=== PATIENT | female | born 1950 | race Caucasian/White ===

== ENCOUNTER 2019-02-15 12:06 | Inpatient (IN) ==
--- NOTE | 2019-02-15 12:49 | Diag Imaging Result Doc PS360 ---
EXAM: CHEST-1 VIEW 02/15/2019 HISTORY: syncope TECHNIQUE: AP portable at 1241 COMMENT: There is no evidence of acute cardiac or pulmonary disease and compared to 10/16/2018 there has been no significant change. IMPRESSION: No acute disease. Electronically signed by Kieran Greenwood 02/15/2019 12:46 PM
[2019-02-15 12:50] LABS: EOS# 0.01 X1000 (0.0-0.7); EOS% 0.3 % (0.0-10.0); HEMATOCRIT 33.6 % (37.0-47.0); HEMOGLOBIN 10.6 g/dL (12.0-16.0); LYMPH# 0.72 X1000 (1.2-3.4); MCHC 31.5 g/dL (33-37); MCV 76.2 FL (81-99); MONO# 0.23 X1000 (0.11-0.59); MONO% 7.7 % (1.7-9.3); MPV 10.6 FL (7.4-10.4); NEUT# 2.04 X1000 (1.4-6.5); PLT 226 X1000 (130-400); RBC 4.41 XMIL (4.2-5.4); RDW 15.6 % (11.5-14.5)
[2019-02-15 13:07] LABS: ALB/GLOB RATIO 1.1; ALBUMIN 3.7 g/dL (3.5-5.0); POTASSIUM 3.7 mmol/L (3.5-5.1); TOTAL BILIRUBIN 1.98 mg/dL (0.20-1.00); TOTAL PROTEIN 7.1 g/dL (6.3-8.3)
--- NOTE | 2019-02-15 13:53 | EKG Report ---
Test Performed on : 02/15/2019 12:15:34 PM Test Reason : syncope Blood Pressure : / mmHG Vent. Rate : 075 BPM Atrial Rate : 075 BPM P-R Int : 224 ms QRS Dur : 092 ms QT Int : 408 ms P-R-T Axes : 082 -20 019 degrees QTc Int : 455 ms Sinus rhythm. with 1st degree AV block. Otherwise normal ECG When compared with ECG of 16-OCT-2018 14:32, No significant change was found Unconfirmed Result
--- NOTE | 2019-02-15 16:10 | Diag Imaging Result Doc PS360 ---
EXAM: CT ABD/PELVIS W/IV CONT ONLY 02/15/2019 HISTORY: SYNCOPE, ELEV lftS TECHNIQUE: This exam was performed using automated exposure control, adjustment of mA or kV according to patient size, and/or use of iterative reconstruction technique. COMMENT: The current examination is compared with the previous study of 04/16/2018. There are patchy ill-defined opacities in the right lower lobe which may indicate a mild bronchopneumonia. This was not present at the time the previous study. There are numerous small gallstones in the gallbladder. There is no evidence of para cholecystic fluid or inflammation. The aorta is not distended. The mesenteric and renal arteries are patent. The spleen and adrenal glands are unchanged in appearance. The pancreas is also stable in appearance. There is dilatation of the collecting system of the left kidney as there was on the previous study. There is an exophytic nodule arising from the lower lateral right kidney which is actually somewhat smaller than on the previous study. There is a fairly large amount of stool present in the colon. There is no evidence of biliary dilatation. There is a hiatal hernia containing fluid. The small bowel is not distended. The appendix is normal in appearance. Pelvis: There is a fat-containing ventral hernia above the level of the umbilicus. There is diverticulosis in the sigmoid colon without evidence of diverticulitis and a large amount of stool in the rectosigmoid colon. The urinary bladder is not distended. There is rotoscoliosis of the lower lumbar spine with convexity to the right. There are degenerative disc changes. IMPRESSION: Constipation. Cholelithiasis. Right lower lobe pneumonia. Otherwise stable since 04/16/2018. Electronically signed by Kieran Greenwood 02/15/2019 4:07 PM
[2019-02-15] MEDS ORDERED: LEVAQUIN 750 MG/D5W 750 MG/150 ML IVPB IV ONE (17:22)
--- NOTE | 2019-02-15 19:09 | PROVIDER DOCUMENTATION ---
This chart was entered by Davida Li Scribe, acting as scribe for Wyatt Sullivan MD. HPI-Syncope/Dizziness - General Chief Complaint: Nausea/Vomiting Stated Complaint: AMS Time Seen by Provider: 02/15/19 12:18 Source: patient, EMS (first response) Allergies/Adverse Reactions: Patient Allergies Allergy/AdvReac Type Severity Reaction Status Date / Time Penicillins Allergy RASH Verified 02/15/19 12:24 Home Medications: Home Medication List Medication Instructions Recorded Confirmed Last Taken Type Folic Acid 1 mg PO DAILY #0 tablet 09/03/14 10/16/18 07/13/18 Rx Lisinopril 10 mg PO DAILY 01/23/16 10/16/18 07/13/18 History Olanzapine 5 mg PO HS 01/23/16 10/16/18 1 Day Ago History ~07/12/18 ROSUVAstatin [Crestor] 20 mg PO QPM 01/23/16 10/16/18 1 Day Ago History ~07/12/18 Aspirin [Aspir-Low] 81 mg DAILY 06/11/17 10/16/18 07/13/18 History Bupropion HCl [Bupropion Xl] 150 mg PO DAILY 07/14/18 10/16/18 Unknown History Lactobacillus Rhamnosus GG 1 cap PO BID 10/16/18 10/16/18 Unknown History [Culturelle] Linaclotide [Linzess] 145 mg PO QAM 10/16/18 10/16/18 Unknown History Tramadol [Ultram] 50 mg PO DAILY PRN 10/16/18 10/16/18 Unknown History - History of Present Illness-Syncope/Dizzy Nature of Presenting Problem: 68 yowf which is a MR pt presents to the ed via ems (first response) with c/o "a few months of passing out", n/v (pt was covered in vomit on exam), SOLIZ, cough and chronic sob. pt had FSBG 144 and has mild confusion which may be baseline. pt had initial 911 call from family for unresponsive in shower. when ems aos pt had GCS of 4 by the time the arrived in ed GCS was 15. pt sts today has been worse with n/v but abdominal pain onset was 2 days prior. Prior Episodes: reports: recent history Onset/Duration: reports: just prior to arrival Timing: reports: improving Position/Activity at time of episode: reports: sitting Symptoms prior to episode: reports: headache, nausea/vomiting, abdominal pain Context: reports: lost consciousness Loss of Consciousness: prolonged (minutes) Location of injury. (If syncope resulted in an injury.): reports: none Current Symptoms: reports: short of breath, abdominal pain, nausea, vomiting, headache, pale, headache. denies: sweaty, chest pain Recently Seen Here or By Another Healthcare Provider: No - Dizziness Severity in ED: reports: mild Dizziness Related Current/Associated Symptoms: reports: nausea/vomiting, dizzy, pale, headache Any recent trauma/injury?: reports: none Patient usually:: reports: walks without assistance Review of Systems - Adult - REVIEW OF SYSTEMS - ADULT ROS:: limited per condition (pt is a MR pt) Constitutional: denies: chills, fever Eyes: reports: no symptoms reported Ears, Nose, Mouth & Throat: reports: no symptoms reported Cardiovascular: reports: see HPI, syncope. denies: chest pain, palpitations Respiratory: reports: cough, shortness of breath. denies: wheezing Gastrointestinal: reports: see HPI, abdominal pain, nausea, vomiting (multiple times). denies: diarrhea Genitourinary: reports: no symptoms reported Musculoskeletal: denies: back pain, neck pain Integumentary: reports: see HPI, hair loss Neurological: reports: see HPI, headache/migraines, syncope. denies: ataxia, loss of balance, seizure, slurred speech, tremors Psychiatric: reports: no symptoms reported Endocrine: reports: no symptoms reported Hematologic/Lymphatic: reports: no symptoms reported Allergic/Immunologic: reports: no symptoms reported All Other Systems: Reviewed and Negative Past History - Adult - PAST MEDICAL HISTORY-ADULT Review of Records: reports: Nursing Assessment Review, Medications Reviewed Major Childhood Illnesses: reports: denies history Cardiovascular: reports: HTN, hyperlipidemia Respiratory: reports: asthma, pneumonia Gastrointestinal: reports: GERD Obstetrical/Gynecological: reports: denies history Genitourinary: reports: cancer (kidney), kidney disease Musculoskeletal: reports: denies history Hand Dominance: Right Handed Neurological: reports: CVA, Seizures/Epilepsy, other ( metabolic encephalopathy) Psychiatric: reports: depression, other (MR) Endocrine/Immune: reports: thyroid disorder Other Conditions: reports: other cancer (skin) - PRIOR SURGERIES/PROCEDURES Surgical/Procedure History: reports: hysterectomy - PRIOR HOSPITALIZATIONS Prior Hospitalizations: reports: for other non-related - IMMUNIZATION STATUS Childhood Immunizations: See Nurse Assessment Flu Vaccine: See Nurse Assessment - FAMILY HISTORY Family History: reviewed, not pertinent - SOCIAL HISTORY Smoking: denies Substance Use: denies Living Situation: family Physical Exam-General - PHYSICAL EXAM-ADULT Initial Vital Signs Reviewed: Yes - CONSTITUTIONAL General Appearance: alert, mild distress, obese. negative: appears well - EYES Eyes: PERRL/EOMI, pale conjunctivae - HEAD, EARS, NOSE, MOUTH & THROAT HENMT: negative: moist mucous membranes (dry) - NECK Neck: full range of motion, supple, normal inspection - RESPIRATORY Respiratory: chest non-tender, lungs clear, normal breath sounds - CARDIOVASCULAR Cardiovascular: normal peripheral pulses, regular rate, rhythm - GASTROINTESTINAL (ABDOMEN) Abdominal Exam: normal bowel sounds, soft, tenderness (generalized). negative: guarding, rigid, rebound - LYMPHATIC Lymphatic: no adenopathy - MUSCULOSKELETAL Back Exam: normal inspection, no CVA tenderness, no vertebral tenderness Extremity: normal range of motion, non-tender, normal inspection, normal capillary refill, pelvis stable - SKIN Integumentary: warm/dry, pallor - PSYCHIATRIC Psych/Mental Status: other (pt has mild confusion but can follow most commands. pt is a MR pt) Progress - PLAN OF CARE/RESULTS Progress/Plan/Lab Results: Vital Signs - 8 hr 02/15/19 13:41 Pulse Rate [Sitting] 86 Pulse Rate [Standing] 92 H Pulse Rate [Supine] 81 Blood Pressure [Sitting] 120/86 Blood Pressure [Standing] 117/78 Blood Pressure [Supine] 124/74 Laboratory Results - last 24 hr 02/15/19 02/15/19 02/15/19 12:16 12:20 12:20 WBC 3.00 L RBC 4.41 Hgb 10.6 L Hct 33.6 L MCV 76.2 L MCH 24.0 L MCHC 31.5 L RDW Std Deviation 15.6 H Plt Count 226 MPV 10.6 H Immature Gran % (Auto) 0.0 Neut % (Auto) 68.0 Lymph % (Auto) 24.0 [place] % (Auto) 7.7 Eos % (Auto) 0.3 Baso % (Auto) 0.0 Immature Gran # (Auto) 0.00 Neut # (Auto) 2.04 Lymph # (Auto) 0.72 L [place] # (Auto) 0.23 Eos # (Auto) 0.01 Baso # (Auto) 0.00 Sodium 140 Potassium 3.7 Chloride 103 Carbon Dioxide 20 L Anion Gap 17 BUN 17 Creatinine 1.0 H Estimated GFR/1.73 m2 55 BUN/Creatinine Ratio 17 Glucose 146 H POC Glucose 144 H D Calculated Osmolality 284 Calcium 9.0 Total Bilirubin 1.98 H AST 863 H ALT 572 H Alkaline Phosphatase 193 H Total Protein 7.1 Albumin 3.7 Globulin 3.4 Albumin/Globulin Ratio 1.1 Orders Category Date Time Status CHEST-1 VIEW [RAD] Stat Exams 02/15/19 12:[address] ABD/PELVIS W/IV CONT ONLY [CT] Stat Exams 02/15/19 15:24 Completed CBC WITH DIFF [HEME] Stat Lab 02/15/19 12:20 Completed COMPREHENSIVE METABOLIC PANEL [CHEM] Stat Lab 02/15/19 12:20 Completed Levofloxacin 750 mg/D5w [Levaquin 750 mg/D5w] Med 02/15/19 17:22 Discontinued 750 mg in 150 ml IV NOW EKG [EKG] Stat Ther 02/15/19 12:33 Draft old charts were reviewed, She has been seen in the ED here 12 other times for syncope, on one recent admission, had cardiac cath. She has refused rehab placement in past Result Diagrams: 02/15/19 12:20 02/15/19 12:20 - REASSESSMENT Reassessment #1 Time Reassessed: 17:17 Status: improving - EKG 1 Time of EKG reading by physician:: 12:15 EKG Read and Signed by:: Wyatt Sullivan EKG Interpretation (*Must complete 3 of following elements*): Normal Rate: 75 Rhythm: sinus rhythm with 1st degree av block Hensley: normal QRS: normal MI Interval: normal ST Wave: normal - XRAY 1 XRAY: Bilateral XRAY Study: Chest Impression: See EMR Report (EXAM: CHEST-1 VIEW 02/15/2019 HISTORY: syncope TECHNIQUE: AP portable at 1241 COMMENT: There is no evidence of acute cardiac or pulmonary disease and compared to 10/16/2018 there has been no significant change. IMPRESSION: No acute disease. Electronically signed by Kieran Greenwood 02/15/2019 12:46 PM 02/15/19 1246 Interpreting Physician: Kieran Greenwood MD Dictated Date/Time: 02/15/19 1246 cc: Wyatt Sullivan MD; Loli Barrios) - CT/MRI 1 CT Study: Abdomen, Pelvis Impression: See EMR Report (EXAM: CT ABD/PELVIS W/IV CONT ONLY 02/15/2019 HISTORY: SYNCOPE, ELEV lftS TECHNIQUE: This exam was performed using automated exposure control, adjustment of mA or kV according to patient size, and/or use of iterative reconstruction technique. COMMENT: The current examination is compared with the previous study of 04/16/2018. There are patchy ill-defined opacities in the right lower lobe which may indicate a mild bronchopneumonia. This was not present at the time the previous study. There are numerous small gallstones in the gallbladder. There is no evidence of para cholecystic fluid or inflammation. The aorta is not distended. The mesenteric and renal arteries are patent. The spleen and adrenal glands are unchanged in appearance. The pancreas is also stable in appearance. There is dilatation of the collecting system of the left kidney as there was on the previous study. There is an exophytic nodule arising from the lower lateral right kidney which is actually somewhat smaller than on the previous study. There is a fairly large amount of stool present in the colon. There is no evidence of biliary dilatation. There is a hiatal hernia containing fluid. The small bowel is not distended. The appendix is normal in appearance. Pelvis: There is a fat-containing ventral hernia above the level of the umbilicus. There is diverticulosis in the sigmoid colon without evidence of diverticulitis and a large amount of stool in the rectosigmoid colon. The urinary bladder is not distended. There is rotoscoliosis of the lower lumbar spine with convexity to the right. There are degenerative disc changes. IMPRESSION: Constipation. Cholelithiasis. Right lower lobe pneumonia. Otherwise stable since 04/16/2018. Electronically signed by Kieran Greenwood 02/15/2019 4:07 PM 02/15/19 1607 Interpreting Physician: Kieran Greenwood MD Dictated Date/Time: 02/15/19 1602 cc: Wyatt Sullivan MD; Loli Barrios) - CONSULTS/PCP/HOSPITALIST Notification #1 *Consult/PCP/Hospitalist*: Brendan Time Discussed: 19:08 Consult Disposition: Admit Departure - Departure Date of Disposition Decision: 02/15/19 Time of Disposition Decision: 17:23 DIAGNOSIS: Syncope and collapse Right lower lobe pneumonia Qualifiers: Pneumonia type: due to unspecified organism Qualified Code(s): J18.1 - Lobar pneumonia, unspecified organism Altered mental status Qualifiers: Altered mental status type: disorientation Qualified Code(s): R41.0 - Disorientation, unspecified Constipation Qualifiers: Constipation type: unspecified constipation type Qualified Code(s): K59.00 - Constipation, unspecified Disposition: ADMITTED INPATIENT 09 Certified Medical Emergency: Emergent Condition: Good Referrals and Follow-Ups: Loli Barrios CRNP [Primary Care Provider] - - Critical Care Note This patient required my direct & personal management of CC.: No Attestation - Physician/ LADAN Attestation Patient care was provided by Advanced Practice Provider:: No The physician spent face to face time with patient:: Yes Advanced Practice Provider documentation review:: Supervising physician onsite and consulted in the evaluation and care of this patient. The physician did have a face to face encounter with the patient. This chart was documented by the indicated scribe, (Davida Li Scribe) and accurately reflects the services I performed and decisions made by me, Wyatt Sullivan MD, as attested by the provider's signature.
[2019-02-15 20:24] LABS: PTT 27.7 Seconds (22.3-41.8)
[2019-02-15 20:57] LABS: D-DIMER 3.32 ug/mLFEU (0.0-0.52)
[2019-02-15 21:01] LABS: MAGNESIUM 1.8 mg/dL (1.5-2.7)
[2019-02-15 21:09] LABS: URINE SOURCE CATH
[2019-02-15 21:13] LABS: INR 1.13; PROTIME 15.5 Seconds (11.0-16.0)
[2019-02-15 21:21] LABS: BILIRUBIN URINE SMALL (NEGATIVE); BLOOD URINE SMALL (NEGATIVE); COLOR YELLOW; GLUCOSE URINE NEGATIVE (NEGATIVE); KETONE URINE NEGATIVE (NEGATIVE); LEUKOCYTES URINE NEGATIVE (NEGATIVE); NITRITE URINE NEGATIVE (NEGATIVE); PROTEIN URINE 30 mg/dL (NEGATIVE); SP GRAVITY URINE > 1.050; TURBIDITY URINE CLEAR (CLEAR); UROBILINOGEN URINE 4 mg/dL (NORMAL)
[2019-02-15 21:34] LABS: UR EPITHELIAL CELLS >10 /HPF (<10); URINE BACTERIA 4+ /HPF; URINE RBC <10 /HPF (<10); URINE WBC <10 /HPF (<10)
--- NOTE | 2019-02-15 21:52 | Diag Imaging Result Doc PS360 ---
EXAM: CT HEAD W/O CONTRAST - 02/15/2019 HISTORY: Syncope,Fall from standing position TECHNIQUE: CT head without contrast COMPARISON: 09/19/2018 FINDINGS: There are some atrophic changes and chronic microvascular ischemic changes similar to prior. There is no indication of recent infarct, although acute infarcts may not be immediately visible. There are some atherosclerotic calcifications noted at the base the brain. There is no evidence of intracranial hemorrhage, mass effect, midline shift, or hydrocephalus. There is no evidence of skull fracture. IMPRESSION: No visible acute intracranial abnormality. No hemorrhage or mass effect. This exam was performed using automated exposure control, adjustment of mA or kV according to patient size, and/or use of iterative reconstruction technique. Electronically signed by Alex Rosa 02/15/2019 9:49 PM
[2019-02-15 21:55] LABS: URINE CASTS NONE SEEN; URINE CRYSTALS NONE SEEN; URINE SMALL ROUND CELLS NONE SEEN; URINE YEAST NONE SEEN
[2019-02-15] MEDS ORDERED: CALMOSEPTINE OINTMENT TOP PRN (22:32)
[2019-02-15] MEDS ORDERED: ZOFRAN IV PRN (22:33)
[2019-02-15 23:47] LABS: AMYLASE 78 U/L (20-200); LIPASE 37 U/L (13-60)
[2019-02-16] MEDS: NS 1,000 ML IV SCH ×2 (01:30→13:48)
[2019-02-16] MEDS ORDERED: DUONEB (A & A) INH PRN (03:54)
[2019-02-16 04:22] LABS: UR AMPHETAMINES QUAL NONE DETECTED (NONE DETECT); UR BARBITUATES QUAL NONE DETECTED (NONE DETECT); UR BENZODIAZEPIN QUAL NONE DETECTED (NONE DETECT); UR CANNABINOIDS QUAL NONE DETECTED (NONE DETECT); UR COCAINE QUAL NONE DETECTED (NONE DETECT); UR METHADONE QUAL NONE DETECTED (NONE DETECT); UR OPIATES QUAL NONE DETECTED (NONE DETECT); UR OXYCODONE QUAL NONE DETECTED (NONE DETECT); UR PCP QUAL NONE DETECTED (NONE DETECT)
[2019-02-16 05:56] LABS: EOS# 0.01 X1000 (0.0-0.7); EOS% 0.2 % (0.0-10.0); HEMOGLOBIN 9.4 g/dL (12.0-16.0); LYMPH# 0.52 X1000 (1.2-3.4); LYMPH% 7.8 % (20.5-51.1); MCH 24.2 PG (27-31); MCHC 31.3 g/dL (33-37); MCV 77.3 FL (81-99); MONO% 7.5 % (1.7-9.3); MPV 10.2 FL (7.4-10.4); NEUT# 5.62 X1000 (1.4-6.5); NEUT% 84.5 % (42.2-75.2); PLT 172 X1000 (130-400); RBC 3.88 XMIL (4.2-5.4); RDW 15.8 % (11.5-14.5); WBC 6.65 X1000 (4.8-10.8)
[2019-02-16] MEDS: LOVENOX SUBQ SCH (05:59)
[2019-02-16 06:19] LABS: ALB/GLOB RATIO 1.1; ALBUMIN 3.4 g/dL (3.5-5.0); CALCIUM 9.1 mg/dL (8.8-10.2); TOTAL PROTEIN 6.5 g/dL (6.3-8.3)
--- NOTE | 2019-02-16 07:58 | HISTORY AND PHYSICAL ---
PRIMARY CARE PROVIDER: LUIS Canchola. CHIEF COMPLAINT: Syncope. HISTORY OF PRESENT ILLNESS: Ms. Medrano is a 68-year-old female, who was brought in to the ER at 12:06 p.m. on 02/15/2019 after having a syncopal episode. According to the EMS report, upon arrival they found the patient sitting down and noted her to be completely unresponsive with a reported GCS of 3. She was breathing and did have a pulse. It did note that the patient had vomited and was pale in color. When they moved the patient to their stretcher, the patient did become more awake and did have a GCS of 14 though did still have some confusion. She was brought to the ER for further evaluation. Upon arrival to the ER, the patient's initial vital signs were heart rate 86, blood pressure 120/86. Oxygen saturation of 94. EKG did show sinus rhythm with a first-degree AV block at a rate of 75. The patient reported to the ER staff that she has been having some syncopal episodes for the past few months. She did complain of headache, chronic cough and shortness of breath that has been ongoing for quite a few months. The patient does complain of abdominal pain that is generalized in nature with nausea and vomiting. She states that it has been ongoing for approximately 2 days. She denies any diarrhea. She states her last bowel movement was yesterday and was of normal color. She denies any hematemesis, hematochezia or melena. She denies any dysuria or urinary frequency. The patient states that she has been having dizziness, as well as syncopal episodes at home. She states this usually occurs when she goes from a sitting to a standing position and starts to walk. She does report that she has a headache right now that hurts across the top of her head. She reports she has blurry vision though states this is not of new onset and she is supposed to wear glasses though they are broken and she has not been able to get a new prescription for them. She denies any chest pain. The patient does report a generalized weakness. She also reports that she has had increasing difficulty with ambulation. She normally is able to ambulate with a walker though states this has been more difficult recently due to worsening weakness. She does report she has some decreased sensation in her hands and feet, though states this is not of new onset and has been going on for quite awhile. The patient denied being sick recently or taking any antibiotics for any infections though she states that she has not felt good recently and that she has been fatigued. The patient currently does live at home. Her sister does live with her and helps care for her though her sister does have chronic medical problems of her own. She denies any recent changes in any of her medications or any prescriptions for any new medicines. Upon evaluation in the ER, the patient was found to be slightly anemic though this does appear to be at her baseline. Chemistry did reveal that she has transaminitis though electrolytes were within normal limits. CK and troponin were negative. D-dimer was elevated at 3.32. The patient's CT of the abdomen and pelvis with IV contrast did show constipation, cholelithiasis and a right lower lobe pneumonia. Her chest x-ray showed no acute abnormalities. Unfortunately a D- dimer was performed after her CT abdomen and pelvis with contrast was performed. Given this we do plan to perform a CT angiogram of pulmonary arteries though we will have to wait a period of time given that she has already received recent IV contrast though her CT of the head was negative for any acute intracranial abnormalities. Patient at this time will be admitted for further treatment and evaluation of her syncope, weakness and pneumonia. REVIEW OF SYSTEM: A 14 review of systems was conducted with the patient and all were negative except for pertinent positives mentioned in above HPI. PAST MEDICAL HISTORY: 1. Dementia. I am unsure of what the patient's baseline mental status is though at this time she was alert and oriented to person, place, time and situation. 2. Hypertension. 3. Dyslipidemia. 4. Anemia. 5. Questionable history of seizure disorder. 6. Questionable history of CVA. 7. History of syncopal episodes. 8. Right renal cell carcinoma status post partial right nephrectomy. 9. 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 10. Diverticulosis. 11. Cholelithiasis. 12. Constipation. PAST SURGICAL HISTORY: 1. Hysterectomy. 2. Partial right nephrectomy. 3. Skin resection secondary to a squamous cell carcinoma of the scalp. SOCIAL HISTORY: The patient denies any past or present tobacco, alcohol or illicit drug use. She used to be a resident at [facility], though at this time she lives at home and does live with her sister who helps care for her though who reportedly has chronic medical problems herself. FAMILY HISTORY: Positive for her mother having history of diabetes mellitus. Her father had a history of heart disease and stroke. She did have a sister who had a brain cancer. She also has another sister who has unknown lung problems. ALLERGIES: The patient has allergies to penicillin. HOME MEDICATIONS: 1. Aspirin 81 p.o. daily. 2. Bupropion XL 150 p.o. daily. 3. Famotidine 40 mg p.o. daily. 4. Folic acid 1 mg p.o. daily. 5. Gabapentin 300 mg p.o. at bedtime. 6. Linzess 140 mg p.o. q.a.m. 7. Lisinopril 10 mg p.o. daily. 8. Olanzapine 5 mg p.o. b.i.d. 9. Omeprazole 40 mg p.o. daily. 10. Crestor 20 mg p.o. at bedtime. DIAGNOSTIC STUDIES: White blood cell count is 30,000, hemoglobin 10.6, hematocrit 33.6, platelet count is 226,000. PT 15.5. INR 1.13. PTT is 27.7. D-dimer is [*]Sodium 140, potassium 3.7, chloride 103, serum [*]BUN 17, creatinine 1. GFR 55. Glucose 146. Calcium 9. Total bilirubin 1.98, AST 863, ALT 572, alkaline phosphatase is 193. Ammonia level is 38. CK 48. Troponin 0.01. Amylase 78. Lipase 37. Plasma lactate is 0.9. Acetaminophen level was less than 1.2. Urinalysis was obtained via catheter and was positive for protein, blood, and 4+ bacteria though was negative for glucose, ketone, nitrates, leukocytes or white blood cells. EKG showed a sinus rhythm with a first-degree AV block at a rate of 75 with a QTc of 455. Chest x-ray showed no acute disease per Radiology. CT abdomen and pelvis with IV contrast only showed constipation, cholelithiasis, and a right lower lobe pneumonia. Other findings include a hiatal hernia containing fluid. There was also a fat containing ventral hernia above the level of the umbilicus. There was diverticulosis in the sigmoid colon without evidence of diverticulitis and a large amount of stool in the rectosigmoid colon. Please see full CT report for detailed findings. CT of the head showed no visible acute intracranial abnormality. No hemorrhage or mass effect. This is per Radiology. Pending diagnostic studies at this time include CT angiogram of pulmonary arteries, echocardiogram, abdominal ultrasound and venous Doppler of bilateral lower extremities. PHYSICAL EXAMINATION: VITAL SIGNS: Heart rate 109, respirations 18, blood pressure 119/87 with a MAP of 93. Oxygen saturation was 95% on nasal cannula at 3 L. GENERAL: Ms. Medrano is a 68-year-old female who is resting in the ER stretcher. She is in no acute distress. She was awake, alert and able to answer questions appropriately. She was alert and oriented to person, place, time and situation. HEENT: Head is atraumatic, normocephalic. Pupils are equal, round and reactive to light, were 3 mm bilaterally and brisk. EOMs were intact. Subconjunctivae were pink. Oral mucosa was slightly dry. Oropharynx was clear. The patient did have a central caries noted as well as some missing teeth as well. NECK: Supple. Trachea midline. No overt JVP noted. No carotid bruits noted upon auscultation bilaterally. CARDIOVASCULAR: Patient has S1, S2 present. No murmurs, gallops or rubs appreciated with a regular rate and rhythm. PULMONARY: Patient has symmetrical chest expansion bilaterally. Lung sounds are clear to auscultation bilaterally full cristobal. ABDOMEN: Soft. Does not appear to be distended though the patient did report tenderness upon palpation in the left lower quadrant. Bowel sounds were present in all 4 quadrants and were normoactive. EXTREMITIES: No cyanosis, clubbing, or edema noted. Pulse, motor and sensory were intact in all extremities though the patient did report some decreased sensation in the hands and bilateral feet. As mentioned above in the HPI, this is not of new onset and has not worsened according to the patient. EXTREMITIES: She is able to move all extremities but does have some generalized weakness noted. Patient did report tenderness upon palpation of bilateral lower extremities and when palpating along the deep venous system though there is no erythema or warmth . No erythema or warmth noted. INTEGUMENTARY: The patient's skin is pink, warm and dry. NEUROLOGICAL: Patient is alert and oriented to person, place, time, and situation. She does have some generalized weakness noted though hand grasps and muscle strength is equal bilaterally. She did report some decreased sensation in her hands and feet though states this is not of new onset and has not worsened. She has no arm drift noted. EOMs were intact. No facial droop noted either. ASSESSMENT AND PLAN: 1. Syncope. Looking back at the patient's previous admission, it does look as though she has had a history of this in the past. She was extensively worked up for this in September 2018. She did receive a cardiac workup which included a cardiac catheterization, echocardiogram. It was noted by Cardiology the patient did have some coronary atherosclerosis without obstructive disease. She did have a multinodular goiter and was recommended to have a CT arteriogram of the extracranial vessels to rule out any compression of the carotid vessels which she did have performed and was noted to have thyroid nodules though did not note any compression or obstruction of carotid vessels. She has had myocardial perfusion scan, echocardiogram as well as a carotid ultrasound performed in April of 2018. There was some dilation of the ascending thoracic aorta noted at 4.4 cm though her carotid ultrasound was negative and her myocardial perfusion scan was noted to be within normal limits. Her CT of head we have performed tonight was negative for any acute intracranial abnormality. Though the patient's D-dimer was elevated, given her syncope and reported shortness of breath we have ordered a CTA angiogram pulmonary arteries to rule out possible pulmonary embolism. We are awaiting this test to be performed at this time. We are also awaiting echocardiogram to be performed. We will continue with the series of cardiac enzymes. We will place her on seizure precautions given her reported questionable history of seizure disorder in the past. We will also perform neurological checks and frequent vital signs. She will be placed on CIC for close monitoring. We will continue to follow. 2. Weakness. This could be multifactorial as well. The patient has reported not feeling well and has had a reported cough and shortness of breath. She was found to have pneumonia in the right lower lobe. This could be contributing to this as well. She did have orthostatics performed in the ER, given her reports of weakness and syncope though these results were within normal limits. We will continue to follow. Once the patient has been worked up a little further ,she will likely need a physical therapy evaluation as well. We also have placed consults with case management and case management social worker given that she will likely need rehab or home health upon discharge. 3. Right lower lobe pneumonia. The patient has reported a cough and shortness of breath. She denies being diagnosed with pneumonia recently. We have ordered blood cultures, sputum culture. We will continue with aggressive pulmonary toilet with incentive spirometry, p.r.n. DuoNeb treatments and have placed her on Levaquin 750 mg IV q.24 hours for antibiotic coverage. 4. Constipation and abdominal pain. The patient does have frequent problems with constipation and takes Linzess. She reports that she has been having bowel movements every few days and did have her last bowel movement yesterday. This could be contributing to her abdominal pain. We have ordered for MiraLAX and Colace to be given and will continue to follow. 5. Transaminitis. This is of uncertain etiology. This could be medication related as well. We have held some of her medications given this. We have placed orders for an abdominal ultrasound and a hepatitis profile and will be following repeat liver function tests in the morning. 6. Elevated D-dimer. As previously mentioned, for further evaluation of this we are awaiting a CT angiogram pulmonary arteries as well as venous Doppler bilateral lower extremities. 7. History of hypertension. The patient's blood pressure at this time has been within normal limits though is slightly on the lower side of normal limits. Given this we will hold her blood pressure medicine. We will continue to follow this and implement antihypertensives only if necessary. 8. DVT prophylaxis will be provided with Lovenox 40 mg subcutaneously q.24 hours. The patient has been placed on CIC with telemetry. She will have vital signs q.4 hours, with strict input and output. She will be NPO at this time for an abdominal ultrasound in the morning. We will repeat a CBC, CMP in the morning as well as a series of cardiac enzymes. We will also provide some gentle fluid hydration with normal saline at 85 mg per hour. Further orders and recommendations pending hospital course, diagnostic studies and physician evaluation. Dictated by LUIS Bragg for Taurus Cardona MD cc: Taurus Cardona MD
[2019-02-16] MEDS: ASPIRIN EC PO SCH (10:00)
[2019-02-16] MEDS: FOLIC ACID PO SCH (10:00)
[2019-02-16] MEDS: COLACE PO SCH ×3 (10:00→20:00)
[2019-02-16] MEDS: MIRALAX PO SCH (10:00)
--- NOTE | 2019-02-16 13:17 | Diag Imaging Result Doc PS360 ---
EXAM: US ABDOMEN-COMPLETE - 02/16/2019 HISTORY: Abd. Pain, Transaminitis TECHNIQUE: Ultrasound abdomen COMPARISON: 02/15/2019 CT abdomen/pelvis FINDINGS: There are artifacts from bowel gas and/or body habitus which limit detail. There are no discrete abnormalities of the liver or spleen identified. Doppler image shows hepatopedal flow in the portal vein. There is no ascites seen. There are multiple shadowing gallstones in the gallbladder. Gallbladder hanna appear mildly thickened. There is no pericholecystic fluid identified. The technologist reports negative sonographic Calvert's sign. The common bile duct is normal caliber at 3 mm. Visualized portions of the pancreas are unremarkable. There are no abnormalities of the bilateral kidneys identified. The abdominal aorta and IVC are largely obscured by bowel gas artifacts. IMPRESSION: Limited detail due to artifacts from bowel gas and/or body habitus. Cholelithiasis. Mildly thickened gallbladder hanna. Normal caliber common bile duct at 3 mm. Electronically signed by Alex Rosa 02/16/2019 1:15 PM
--- NOTE | 2019-02-16 13:23 | Diag Imaging Result Doc PS360 ---
EXAM: CT ANGIOGRAM PULMONARY ARTERIES - 02/16/2019 HISTORY: Syncope,SOB,Elevated D-Dimer TECHNIQUE: CT angiogram pulmonary arteries with intravenous contrast. Axial, coronal, and 3-D MIP images are obtained. COMPARISON: 03/31/2015 FINDINGS: There are no filling defects identified in the pulmonary arteries. The ascending aorta is mildly ectatic at 4 cm. There is no indication of aortic dissection. There is mild interstitial marking prominence. There is no dense consolidation, pleural effusion, or pneumothorax identified. IMPRESSION: No evidence of pulmonary embolism. Mild prominence of interstitial markings. No discrete pneumonia. Electronically signed by Alex Rosa 02/16/2019 1:21 PM
[2019-02-16] MEDS ORDERED: LINZESS PO SCH (14:45)
--- NOTE | 2019-02-16 14:58 | PROGRESS NOTE ---
DATE: 02/16/2019 SUBJECTIVE: This patient is resting comfortably in bed. She seems to be awake, alert. She is following commands. She is complaining of some dysuria and mild cough. We have a positive urine culture that showed gram-negative rods. She has been having E coli urinary tract infection in the past since 2013 at least 8 to 9 times, last one documented was on 10/16/2018. Probably this patient will need to see a urologist as an outpatient to see the urine residual and/or any other problems that can predispose to urine infection. Recently on September 2018, she was hospitalized due to syncope, and she had an extensive workup including a stress test and a cardiac cath on 09/20/2018 that showed heavy calcification in her coronaries on noninvasive images and, during the procedure, no major problems were seen. In summary, showed left anterior descending and circumflex vessels originate from the left main, they are mid luminal irregularities that are calcified in nature in the proximal LAD, as well as mid and proximal circumflex. Right coronary artery originates from the right coronary cusp. It is a dominant vessel. There are mild luminal irregularities up to 20 to 30 percent in the proximal and mid vessel that is heavily calcified, but no evidence of obstruction. OBJECTIVE: Vital Signs: Temperature 98.2 degrees, pulse 74, respiratory rate 18, blood pressure 122/66, oxygen saturation 100% on 2 L of nasal cannula. HEENT: Head normocephalic, no trauma. PERRLA. She has multiple lesions on the forehead and parietal area. Neck: Supple. No JVD. Central trachea. Cardiovascular: RRR. Chest: Some crepitus bilaterally scattered. Abdomen: Soft, nontender, nondistended. No hepatosplenomegaly. Extremities: No edema. No clubbing. No cyanosis. Neurological examination: The patient is alert and oriented x3. She does have some generalized weakness and decreased muscle mass. LABORATORY: WBC 6.6, hemoglobin 9.4, hematocrit 30, platelets 272. Sodium 140, potassium 4, chloride 102, bicarbonate 24. BUN 17, creatinine 1, glucose 80, calcium 9.1. AST 367, ALT 370, alkaline phosphatase 181, total bilirubin 1, albumin 3.4. ASSESSMENT AND PLAN: 1. Syncope. Recently she had the same problem, she was admitted and we performed an extensive workup. I do believe this time it is related to her new urinary tract infection, and also there is a report from a pulmonary angiogram that she did not have any evidence of pulmonary embolism, consolidation, or pleural effusion, even though the CT scan of the abdomen and pelvis showed what appears to be right lower lobe pneumonia. I checked the images myself, and I would say that there are some infiltrates at the right base, so I will continue with antibiotics. 2. Sepsis. Upon admission, this patient was hypotensive, tachypneic. WBC was 3, and we do have a source of infection. Urine culture showed gram-negative rods and she has some infiltrates at the level of the right lower lung. She has been placed on levofloxacin. We will wait for the final sensitivity. She is allergic to penicillin. 3. Right lower lung pneumonia as above. 4. Urinary tract infection secondary to gram-negative rods. We will monitor for now. 5. Generalized weakness, multifactorial. We will place a consult for physical therapy. 6. Constipation. We will continue with her Linzess which she was taking at home. 7. Transaminitis, likely secondary to low blood pressure. Upon admission, the blood pressure dropped to the 80s, but now that she has been on treatment/fluids, the liver function tests are getting better. We will continue with just monitor. 8. Elevated D-dimer. Computed tomography angiogram is negative, as well as venous Doppler ultrasound, but will monitor. 9. History of hypertension. Actually, this patient came in hypotensive. No blood pressure medication for now. 10. Deep vein thrombosis prophylaxis. Continue with same management. cc: Boris Garsia MD
[2019-02-16] MEDS: LINZESS PO SCH (16:58)
[2019-02-16] MEDS ORDERED: LEVAQUIN 750 MG/D5W 750 MG/150 ML IVPB IV SCH (17:30)
[2019-02-16] MEDS: ZYPREXA PO SCH ×2 (19:39→20:01)
[2019-02-16] MEDS: NEURONTIN PO SCH ×2 (19:39→20:01)
[2019-02-17 05:49] LABS: BASO# 0.01 X1000 (0.0-0.2); BASO% 0.2 % (0.0-0.8); EOS# 0.06 X1000 (0.0-0.7); EOS% 1.2 % (0.0-10.0); HEMATOCRIT 29.5 % (37.0-47.0); HEMOGLOBIN 8.9 g/dL (12.0-16.0); LYMPH# 0.68 X1000 (1.2-3.4); LYMPH% 13.8 % (20.5-51.1); MCH 23.9 PG (27-31); MCHC 30.2 g/dL (33-37); MCV 79.1 FL (81-99); MONO# 0.61 X1000 (0.11-0.59); MONO% 12.4 % (1.7-9.3); MPV 10.3 FL (7.4-10.4); NEUT# 3.56 X1000 (1.4-6.5); NEUT% 72.4 % (42.2-75.2); PLT 155 X1000 (130-400); RBC 3.73 XMIL (4.2-5.4); RDW 16.2 % (11.5-14.5); WBC 4.92 X1000 (4.8-10.8)
[2019-02-17] MEDS: LOVENOX SUBQ SCH (05:52)
[2019-02-17 06:04] LABS: ALB/GLOB RATIO 0.9; ALBUMIN 2.7 g/dL (3.5-5.0); CALCIUM 8.5 mg/dL (8.8-10.2); CREATININE 1.1 mg/dL (0.5-0.9); MAGNESIUM 1.7 mg/dL (1.5-2.7); TOTAL BILIRUBIN 0.47 mg/dL (0.20-1.00); TOTAL PROTEIN 5.8 g/dL (6.3-8.3)
--- NOTE | 2019-02-17 08:04 | PROGRESS NOTE ---
DATE: 02/17/2019 SUBJECTIVE: No acute events overnight. We have a positive urine culture that showed urinary tract infection with Escherichia coli, and this patient is symptomatic. She has been having Escherichia coli urinary tract infection on and off. I have consulted Infectious Disease Department to evaluate this patient since she is allergic to penicillin and the bacteria resistant to levofloxacin. Probably, this patient will need to be evaluated by Urology Department as an outpatient to make sure that she is not retaining urine in the bladder. Also, I will ask for a renal ultrasound to rule out hydronephrosis and/or obstruction. OBJECTIVE: Vital Signs: Temperature 98 degrees, pulse 67, respiratory rate 21, blood pressure 127/64, oxygen saturation 100% on room air. HEENT: Head normocephalic. No trauma. PERRLA. She has multiple lesions in the parietal area and forehead. Neck: Supple. No JVD. Central trachea. Cardiovascular: RRR. Chest: Some crepitus at the bases bilaterally. Abdomen: Soft, nontender, nondistended. Suprapubic tenderness. No hepatosplenomegaly. Extremities: No edema, no clubbing, no cyanosis. Neurological: This patient is alert. She is oriented. She is following commands. She has generalized weakness, decreased muscle mass. ASSESSMENT AND PLAN: 1. Syncope. Recently, she had the same problem. She was admitted and we performed an extensive workup, including a cardiac catheterization. I do believe this is related to pneumonia and urinary tract infection. Will consult Infectious Disease Department to evaluate this patient. 2. Sepsis. Upon admission, this patient was hypotensive, tachypneic, WBC was 3, and we do have a source of infection. We have an infiltrate at the level of the right lower lung, and Escherichia coli urinary tract infection. She has been having urinary tract infection multiple times, at least 9 to 10 times, with the same bacteria. Also, I will ask for the immunoglobulin level to rule out deficiency. 3. Right lower lung pneumonia. As above. 4. Urinary tract infection secondary to Escherichia coli, resistant to levofloxacin. I have consulted Infectious Disease Department to evaluate this patient. She is allergic to penicillin. 5. Generalized weakness, multifactorial. Physical Therapy has been consulted. 6. Constipation. Continue with her home medications. 7. Transaminitis, likely secondary to low blood pressure. Upon admission, the blood pressure dropped to the 80s, but now the liver function tests are getting better on a daily basis. I will continue just to monitor. 8. Elevated D-dimer. CT angiogram is negative for pulmonary embolism. No signs of deep venous thrombosis. 9. History of hypertension. Actually, this patient came in hypotensive. Blood pressure has been stable. We will just monitor. 10. Deep vein thrombosis prophylaxis. Continue with the same management. cc: Boris Garsia MD MTDD
[2019-02-17] MEDS: LINZESS PO SCH (09:13)
[2019-02-17] MEDS: MERREM 1 GM in NS 50 ML IV SCH ×3 (09:13→23:30)
[2019-02-17] MEDS: COLACE PO SCH ×2 (09:14→23:31)
[2019-02-17] MEDS: WELLBUTRIN XL PO SCH (09:14)
[2019-02-17] MEDS: MIRALAX PO SCH (09:14)
[2019-02-17] MEDS: ZYPREXA PO SCH ×2 (09:14→23:31)
[2019-02-17] MEDS: ASPIRIN EC PO SCH (09:14)
[2019-02-17] MEDS: FOLIC ACID PO SCH (09:14)
[2019-02-17 09:44] LABS: HEPATITIS PROFILE ACUTE SEE COMMENTS
--- NOTE | 2019-02-17 10:14 | INFECTIOUS DISEASE CONSULT REP ---
DATE: 02/17/2019 CONCLUSION: The patient is admitted to the hospital with recurrent urinary tract infections. The exact cause of this is uncertain to me at this time. I did get a bladder scan and the patient has had only 215 mL of urine, which would seem to make urinary retention unlikely. The patient has had CT scan of the abdomen and pelvis which showed right lower lobe pneumonia, but did not show any abnormalities with the kidneys, such as an abscess or obstruction, which could explain recurrent urinary tract infection occurring. I agree with Dr. Mike that the patient may have an immunoglobulin deficiency, which is predisposing her to getting both pneumonia and urinary tract infections. RECOMMENDATIONS: Patient is allergic to penicillin manifested by pruritus and she has been started on meropenem which she is tolerating well. Therefore, I would suggest continuing meropenem. It seems to me that the patient has not only involvement of her bladder but her kidneys as well, and therefore I would suggest treating her for 2 weeks. Also, another possibility is that the patient has atrophic vaginitis which is causing her to have recurrent urinary tract infections and in that situation, topical estrogen could help. DISCUSSION: The patient tells me that she has had dysuria for the past 2 to 3 months. In the past week she has had a hard stool. She tells me that she actually came in the hospital because she passed out. Patient's laboratory studies show a CBC with a white count of 4920, hemoglobin 8.9, and platelet count 155,000. Creatinine is 1.1. GFR is 49. Liver function studies had all been elevated, including the bilirubin, AST, ALT, and alkaline phosphatase and all of these values have gotten better since the patient was hospitalized. The patient's urine grew E. coli. The drug screen was negative except for Tylenol. Blood cultures are negative. CT scan of the abdomen and pelvis as mentioned above showed constipation, gallstones, and a right lower lobe pneumonia. Bladder scan as I mentioned earlier shows the patient had 215 mL of urine in her bladder. The patient's immunoglobulin levels are pending. REVIEW OF SYSTEMS: Head, eyes, ears, nose and throat: The patient denies trouble hearing or seeing. She is not complaining of any pain in her mouth. Neck: No pain with movement of it. Respiratory: No cough or pleuritic chest pain. GI: The patient in the past week has had a hard stool. He does not have diarrhea. : The patient is having dysuria and flank pain. Neurologic: No seizures. No recent loss of motor or sensory function. Integument: No rash. MIXER WHIPPED TOPPING HISTORY: She has never been . She has had a hysterectomy and bilateral salpingo- oophorectomy. PREVIOUS HOSPITALIZATIONS AND OPERATIONS: She has had a hysterectomy, bilateral salpingo- oophorectomy and removal of a renal cell cancer. The patient did not lose her whole kidney, only part of it. MEDICAL DISEASES: Positive for renal and skin cancers. Also positive for hypertension. The patient has gastroesophageal reflux disease and hyperlipidemia. INFECTIOUS DISEASE HISTORY: Positive for recurrent urinary tract infections. It was seen on the patient's CT scan that she also has a right lower lobe pneumonia. FAMILY HISTORY: Positive for diabetes mellitus, cancer, myocardial infarction and stroke. SOCIAL HISTORY: The patient lives in [place] with her sister. She is . She does not have any pets at home. She does not drink alcoholic beverages or abuse drugs or smokes cigarettes. ALLERGIES: Penicillin manifested by itching, but no rashes or angioedema. MEDICATIONS TAKEN AT HOME: Bupropion, famotidine, gabapentin, Linzess, lisinopril, olanzapine, omeprazole, Crestor and tramadol. PHYSICAL EXAMINATION: Vital Signs: Temperature is 98.3 degrees, pulse 82, respirations 18, blood pressure 132/73. General: The patient is 68 years old. She is 5 feet 5 inches tall, weighs 167 pounds. This is a obese, elderly female. She is in no acute distress. Head, eyes, ears, nose and throat: She is missing most of her hair. She does have some lesions on her forehead that appear to be large macular lesions. I did not see any erythema or purulence. The patient has lost most of her hair on her head. She also is missing many of her teeth. Abdomen: Soft. The patient did have tenderness in the suprapubic and bilateral CVA areas. Neurologic: Patient is awake. She can move her extremities. There is no tremor. Her sensation is intact to touch. Her memory as regarding her medical history seemed to be decreased. Integument: No other rash noted other than the findings on her scalp. Thank you for the consult. cc: Dae Marcelino MD
--- NOTE | 2019-02-17 14:59 | ECHO REPORT ---
ORDER DATE: 02/16/2019 ECHOCARDIOGRAPHIC MEASUREMENTS: 1. Interventricular septum 1.5. 2. Left ventricular posterior wall 1.5. 3. Diastolic diameter 3.9. 4. Left atrium 3.6. 5. Aorta 3.3. SUMMARY: 1. Aortic valve leaflets are sclerosed, trileaflet opening normally. 2. Pulmonic valve was normal. 3. Tricuspid valve was normal. 4. Mitral valve was normal. 5. There is left atrial enlargement. 6. Peak velocity across the aortic valve less than 2 m/sec. 7. There is aortic sclerosis. There is no aortic stenosis. 8. There is trace aortic regurgitation. 9. There is mild mitral regurgitation. Mild tricuspid regurgitation. 10. Peak velocity across the tricuspid valve was 2.2 m/sec. 11. Pulmonary artery systolic pressure of 30 mmHg. 12. Normal left ventricular cavity size. Concentric left ventricular hypertrophy. 13. Estimated ejection fraction of 65 to 70%. There is diastolic dysfunction. 14. There is no pericardial effusion or obvious intracardiac mass or thrombus. cc: Mickey Ng MD
[2019-02-17] MEDS: NEURONTIN PO SCH (23:31)
[2019-02-18] MEDS: MERREM 1 GM in NS 50 ML IV SCH ×3 (01:17→17:50)
[2019-02-18] MEDS: LOVENOX SUBQ SCH (05:55)
[2019-02-18 06:31] LABS: BASO# 0.01 X1000 (0.0-0.2); BASO% 0.3 % (0.0-0.8); EOS# 0.08 X1000 (0.0-0.7); EOS% 2.1 % (0.0-10.0); HEMATOCRIT 27.9 % (37.0-47.0); HEMOGLOBIN 8.7 g/dL (12.0-16.0); LYMPH# 0.78 X1000 (1.2-3.4); LYMPH% 20.4 % (20.5-51.1); MCH 24.4 PG (27-31); MCHC 31.2 g/dL (33-37); MCV 78.2 FL (81-99); MONO# 0.41 X1000 (0.11-0.59); MONO% 10.7 % (1.7-9.3); MPV 10.5 FL (7.4-10.4); NEUT# 2.54 X1000 (1.4-6.5); NEUT% 66.5 % (42.2-75.2); PLT 179 X1000 (130-400); RBC 3.57 XMIL (4.2-5.4); RDW 16.4 % (11.5-14.5); WBC 3.82 X1000 (4.8-10.8)
[2019-02-18 07:14] LABS: ALB/GLOB RATIO 0.9; ALBUMIN 2.9 g/dL (3.5-5.0); CALCIUM 8.5 mg/dL (8.8-10.2); CREATININE 1.3 mg/dL (0.5-0.9); POTASSIUM 4.1 mmol/L (3.5-5.1); TOTAL BILIRUBIN 0.45 mg/dL (0.20-1.00); TOTAL PROTEIN 6.2 g/dL (6.3-8.3)
[2019-02-18] MEDS: ZYPREXA PO SCH ×2 (10:12→20:36)
[2019-02-18] MEDS: LINZESS PO SCH (10:12)
[2019-02-18] MEDS: COLACE PO SCH ×2 (10:12→20:37)
[2019-02-18] MEDS: ASPIRIN EC PO SCH (10:12)
[2019-02-18] MEDS: MIRALAX PO SCH (10:12)
[2019-02-18] MEDS: FOLIC ACID PO SCH (10:12)
[2019-02-18] MEDS: WELLBUTRIN XL PO SCH (10:12)
--- NOTE | 2019-02-18 14:01 | PROGRESS NOTE ---
DATE: 02/18/2019 SUBJECTIVE: No acute events overnight. She has a positive culture that showed ESBL E. coli. We have placed this patient on meropenem and infectious disease department is following this patient closely. She is feeling better. We will continue with the same management. OBJECTIVE: Vital Signs: Temperature 97.6 degrees, pulse 90, respiratory rate 14, blood pressure 133/70, oxygen saturation 100% on 1 L of nasal cannula. HEENT: Head normocephalic. No trauma. PERRLA. She has multiple lesions in the parietal area and forehead. Neck: Supple. No JVD. Central trachea. Cardiovascular: RRR. Chest: Some crepitus at the bases bilaterally. Abdomen: Soft, nontender, nondistended. Suprapubic tenderness. No hepatosplenomegaly. Extremities: No edema, no clubbing, no cyanosis. Neurological Examination: The patient is alert. She is oriented. She is following commands. She does have generalized weakness, decreased muscle mass. Laboratory: WBC 3.8, hemoglobin 8.7, hematocrit 27.9, platelets 179,000. Sodium 140, potassium 4.1, chloride 108, bicarbonate 22, BUN 22, creatinine 1.3, glucose 87, calcium 8.5. AST 92, ALT 153, alkaline phosphatase 165. ASSESSMENT AND PLAN: 1. Syncope. Recently, she was admitted for the same problem and we did an extensive workup including cardiac catheterization. I do believe this is related to her pneumonia and urinary tract infection. Infectious disease department evaluated this patient. We will follow their recommendations. 2. Sepsis. Upon admission, the patient was hypotensive, tachycardic, WBC was 3, and we do have a source of infection. We have an infiltrate at the level of the right lower lung and also Escherichia coli urinary tract infection which is recurrent. She has been having urinary tract infection multiple times, at least 9 to 10 times with the same bacteria. I also asked for an immunoglobulin level and this is within normal limits. Hepatitis panel is nonreactive. 3. Generalized weakness, multifactorial. Physical therapy has been consulted. I talked to the patient about a rehab center but she wants to go home. I believe she does not want to get physical therapy at home either. 4. Constipation. Continue home medication. 5. Transaminitis, likely secondary to low blood pressure. Upon admission, the blood pressure had dropped to the 80s but now the liver function is getting better on a daily basis. I will continue to monitor. 6. Elevated D-dimer. CT angiogram has been negative for deep venous thrombosis and she does not have any symptoms of deep venous thrombosis. We will also get a Doppler ultrasound at the level of the lower extremities to rule out deep venous thrombosis. 7. History of hypertension. Actually, this patient came in hypotensive. Blood pressure has been stable. We will just monitor. 8. Deep vein thrombosis prophylaxis. Continue with Lovenox. 9. History of right renal cell carcinoma, status post partial right nephrectomy, and squamous cell carcinoma of the scalp, status post resection. Aware. I believe this patient can be discharged in the next 24 to 48 hours. I will ask Dr. Marcelino if he wants to continue with oral treatment or intravenous treatment for this patient at home. She does not want to go to a rehab center. 10. I discussed again her resuscitation status and this patient decided to be a Full Code. cc: Boris Garsia MD
--- NOTE | 2019-02-18 18:04 | INFECTIOUS DISEASE PROGRESS NO ---
DATE: 02/18/2019 PRESENT ILLNESS: Ms. Medrano is being treated for an Escherichia coli urinary tract infection which is recurrent, and is complaining of some pain with urination but denies any flank pain. There is also a right lower lobe pneumonia. MEDICATIONS: She is receiving meropenem 1 g IV every 8 hours. PHYSICAL EXAMINATION: Vital Signs: Temperature is 98.6 degrees, pulse rate 68, respiratory rate 16, blood pressure 116/73, O2 saturation 100% on 1 L nasal cannula. General: This is a chronically ill-appearing, elderly female. She is lying in bed, currently in no acute distress. HEENT: Atraumatic, normocephalic. Oral mucous membranes are pink and moist. Conjunctivae are pale. Cardiovascular: Heart rate and rhythm are regular. Normal sinus rhythm on the monitor. Respiratory: Lung sounds are clear to auscultation in the upper lobes, diminished in the mid and bases. Abdomen: Soft, round, and tender to the left lower quadrant. Bowel sounds are active. Neurologic: She is awake, alert, and appropriate. Minimal verbalization noted. LABORATORY AND X-RAY: Today, her white count is 3.82, hemoglobin 8.7, platelet count 179,000. Creatinine is 1.3, GFR 41, total bilirubin 0.45, AST 92, ALT 153, alkaline phosphatase is 165. Her IgG is 925, IgA 312. Her urine has grown Escherichia coli which is multidrug resistant. ASSESSMENT AND PLAN: Ms. Medrano is being treated for an Escherichia coli urinary tract infection and a right lower lobe pneumonia with meropenem, which we will continue for at least 2 weeks. The cause of her recurrent urinary tract infections could be related to atrophic vaginitis, so it may be appropriate for her to receive topical estrogen. These plans have been discussed with and recommended by Dr. Marcelino. COMORBIDITIES: For Ms. Medrano include she is elderly, with dementia, seizure disorder, renal cancer with a partial right nephrectomy, and squamous cell carcinoma of scalp. Dictated by LUIS Sosa for Dae Marcelino MD This chart was documented by, LUIS Sosa and accurately reflects the services performed, treatment plan and medical decisions as attested by the providers signature Dae Marcelino MD. cc: Dae Marcelino MD [facility] CENTERDavid
[2019-02-18] MEDS: NEURONTIN PO SCH (20:36)
[2019-02-19] MEDS: MERREM 1 GM in NS 50 ML IV SCH ×3 (02:04→16:51)
[2019-02-19] MEDS: LOVENOX SUBQ SCH (06:21)
[2019-02-19 06:36] LABS: BASO# 0.02 X1000 (0.0-0.2); BASO% 0.6 % (0.0-0.8); EOS% 3.2 % (0.0-10.0); HEMATOCRIT 28.4 % (37.0-47.0); HEMOGLOBIN 8.7 g/dL (12.0-16.0); LYMPH# 0.95 X1000 (1.2-3.4); LYMPH% 30.2 % (20.5-51.1); MCH 24.2 PG (27-31); MCHC 30.6 g/dL (33-37); MCV 78.9 FL (81-99); MONO# 0.34 X1000 (0.11-0.59); MONO% 10.8 % (1.7-9.3); MPV 10.6 FL (7.4-10.4); NEUT# 1.74 X1000 (1.4-6.5); NEUT% 55.2 % (42.2-75.2); PLT 178 X1000 (130-400); RDW 16.3 % (11.5-14.5); WBC 3.15 X1000 (4.8-10.8)
[2019-02-19 07:09] LABS: AGAP 9; ALB/GLOB RATIO 1.2; ALBUMIN 2.9 g/dL (3.5-5.0); ALKALINE PHOSPHATASE 139 U/L (32-104); BUN 19 mg/dL (8-22); CALCIUM 8.5 mg/dL (8.8-10.2); CHLORIDE 108 mmol/L (98-107); COSMO 281; CREATININE 0.9 mg/dL (0.5-0.9); ESTIMATED GFR > 60; GLUCOSE 82 mg/dL (70-104); GOT 45 U/L (10-30); GPT 101 U/L (10-36); POTASSIUM 4.3 mmol/L (3.5-5.1); SODIUM 140 mmol/L (136-145); TCO2 23 mmol/L (25-35); TOTAL PROTEIN 5.4 g/dL (6.3-8.3)
[2019-02-19] MEDS: LINZESS PO SCH (08:33)
[2019-02-19] MEDS: ASPIRIN EC PO SCH (08:33)
[2019-02-19] MEDS: ZYPREXA PO SCH ×2 (08:33→21:57)
[2019-02-19] MEDS: FOLIC ACID PO SCH (08:33)
[2019-02-19] MEDS: WELLBUTRIN XL PO SCH (08:33)
[2019-02-19] MEDS: COLACE PO SCH ×2 (08:33→21:57)
[2019-02-19] MEDS: MIRALAX PO SCH (08:34)
--- NOTE | 2019-02-19 09:31 | Extremity Venous Study ---
PROCEDURE NAME: Venous U/S Bilateral Legs - 02/16/2019 REQUESTING PHYSICIAN: Dr. Cardona. METAL ROOM DENTAL TECHNICIAN: Efren. INDICATIONS: Leg pain and elevated D-dimer. EQUIPMENT: [employer] Vivid E9 ultrasound system with a 9 L-D transducer. FINDINGS: Images of bilateral lower extremity venous systems were obtained in both sagittal and transverse planes. Doppler was used to evaluate veins for spontaneity, phasicity, respiratory excursion, and digital augmentation. RESULTS: Normal venous compression. Normal venous flow. No obvious superficial or deep venous thrombosis noted. INTERPRETATION: Essentially normal bilateral lower extremity venous study. cc: Louis Ashby MD
--- NOTE | 2019-02-19 12:01 | PROGRESS NOTE ---
DATE: 02/19/2019 SUBJECTIVE: Patient reports still having some burning on urination. Denies any fever or chills. OBJECTIVE: Vital Signs: Temperature 97.9 degrees, heart rate 60, respiratory rate 16, blood pressure 133/70, O2 saturation 100% on 2 L nasal cannula. General: This is a chronically ill- appearing, frail and disheveled 68-year-old female lying in bed, in no acute distress. HEENT: Head is normocephalic, atraumatic. Poor dentition. Patient has multiple lesions in the parietal area and forehead. Neck: No JVD noted. No carotid bruits. Cardiovascular: S1, S2 heard. No murmurs, gallops, or rubs. Regular rate and rhythm. Respiratory: Some crepitus in both bases. Patient not using any accessory muscles or having work of breathing. Abdomen: Soft, nontender to palpation. Bowel sounds. No organomegaly. Extremities: No clubbing cyanosis or edema. Peripheral pulses present in both legs. Neurological: Patient is awake and alert. Follows commands. The patient moves 4 extremities. LABORATORY DATA: White cell count 3.15, hemoglobin 8.7, hematocrit 28.4, platelets 178,000. Normal BMP. ASSESSMENT AND PLAN: 1. Syncope, most likely related to his medical conditions, in this case, pneumonia, urinary tract infection. We will continue to monitor. 2. Sepsis secondary to right lower lobe pneumonia and E. coli negative ESBL. Patient is on meropenem. Dr. Marcelino from Infectious Disease is following this patient. She reports still complaining of burning on urination. At this point, we will continue recommendations from Dr. Marcelino and we will check with him how long this patient will be on IV antibiotics. 3. General weakness, multifactorial. Physical Therapy has been consulted and although she may qualify for going to rehab facility, she refused and she has refused in previous hospitalization to go to any rehab facility. 4. Hypertension. Blood pressure is much better. We will continue to monitor this patient closely. 5. History of right renal cell carcinoma, status post partial right nephrectomy. Aware. 6. Transaminitis. The liver function tests are getting back to normal. We will continue to monitor. 7. Disposition. At this point, we will continue with treatment for right lower lobe pneumonia and UTI with IV antibiotics directed by Dr. Marcelino. We will check with him how long he is planning to keep her in a hospital with IV medications. cc: Delfin Parmar MD
[2019-02-19] MEDS: NEURONTIN PO SCH (21:56)
[2019-02-20] MEDS: MERREM 1 GM in NS 50 ML IV SCH ×3 (01:33→17:01)
[2019-02-20] MEDS: LOVENOX SUBQ SCH (05:34)
[2019-02-20 06:31] LABS: BASO# 0.01 X1000 (0.0-0.2); BASO% 0.4 % (0.0-0.8); EOS# 0.13 X1000 (0.0-0.7); EOS% 4.8 % (0.0-10.0); HEMATOCRIT 29.4 % (37.0-47.0); LYMPH# 0.75 X1000 (1.2-3.4); LYMPH% 27.7 % (20.5-51.1); MCH 24.2 PG (27-31); MCHC 30.6 g/dL (33-37); MONO# 0.32 X1000 (0.11-0.59); MONO% 11.8 % (1.7-9.3); MPV 10.6 FL (7.4-10.4); NEUT% 55.3 % (42.2-75.2); PLT 190 X1000 (130-400); RBC 3.72 XMIL (4.2-5.4); RDW 16.6 % (11.5-14.5); WBC 2.71 X1000 (4.8-10.8)
[2019-02-20 06:51] LABS: AGAP 11; BUN 26 mg/dL (8-22); CALCIUM 8.9 mg/dL (8.8-10.2); CHLORIDE 105 mmol/L (98-107); COSMO 290; CREATININE 0.8 mg/dL (0.5-0.9); ESTIMATED GFR > 60; GLUCOSE 99 mg/dL (70-104); POTASSIUM 4.4 mmol/L (3.5-5.1); SODIUM 143 mmol/L (136-145); TCO2 27 mmol/L (25-35)
[2019-02-20] MEDS: WELLBUTRIN XL PO SCH (10:24)
[2019-02-20] MEDS: COLACE PO SCH ×2 (10:24→23:32)
[2019-02-20] MEDS: FOLIC ACID PO SCH (10:24)
[2019-02-20] MEDS: ASPIRIN EC PO SCH (10:24)
[2019-02-20] MEDS: LINZESS PO SCH (10:24)
[2019-02-20] MEDS: ZYPREXA PO SCH ×2 (10:24→23:32)
[2019-02-20] MEDS: MIRALAX PO SCH (10:24)
--- NOTE | 2019-02-20 15:54 | PROGRESS NOTE ---
DATE: 02/20/2019 INTERVAL HISTORY: The patient's respiratory status is much improved. Beginning to approach baseline. Remains globally weak but no new complaints. No acute events overnight. REVIEW OF SYSTEMS: Twelve point review of systems negative except as per interval history. LABORATORY: WBC 2.7, hemoglobin 9, hematocrit 29.4, and platelets 190,000. Basic metabolic panel unremarkable. VITALS: T-max 99.5 degrees, pulse 96, respirations 18, blood pressure 140/116, and O2 saturation 100% on 2 L by nasal cannula. PHYSICAL EXAMINATION: General: No acute distress. Chronically ill-appearing. Vitals: As above. HEENT: Normocephalic, atraumatic. Poor dentition. Little hair. No cervical adenopathy. Cardiovascular: Regular rate and rhythm. No murmurs, gallops, or rubs noted. Pulmonary: Faint bibasilar crackles. Otherwise, clear to auscultation bilaterally. Abdomen: Soft, nontender, and nondistended. Bowel sounds positive. Extremities: Peripheral pulses are intact. No clubbing, cyanosis, or edema. Neurologic: Cranial nerves grossly intact globally weak, but no focal deficits identified. Psychiatric: Normal mood, slightly flat affect, asleep but easily arousable. Oriented x3. ASSESSMENT/PLAN: 1. Syncope, likely related to acute infections and sepsis as below. 2. Right lung pneumonia, E. Coli UTI, sepsis. ESBL E. Coli. Patient on Merrem as per ID, who is recommending a total of 2 weeks of IV Merrem. We will try to get patient a PICC line, so she may be able to go home with IV antibiotics in the next few days. 3. Generalized weakness. Continue physical therapy while she is here. Patient refusing rehab placement. Plans to go home with home health. 4. Hypertension. Blood pressure reasonable on current regimen. Continue to monitor. 5. Elevated LFTs, likely related to acute infections as above, now essentially normal. 6. Dementia appears to be quite mild. Patient fully oriented and cooperative. 7. Possible seizure disorder. No seizure activity here. Continue home medications. 8. Anemia of chronic disease. Blood count stable. 9. Disposition. The patient continues to improve, and likely discharge in the next 24 to 48 hours once home intravenous antibiotics have been arranged.
--- NOTE | 2019-02-20 18:33 | INFECTIOUS DISEASE PROGRESS NO ---
DATE: 02/20/2019 PRESENT ILLNESS: Ms. Medrano has an Escherichia coli urinary tract infection and a right lower lobe pneumonia. There is a leukopenia, however her absolute neutrophil count is normal. MEDICATIONS: She is receiving meropenem 1 g IV every 8 hours. Today is day 3 of this medicine. PHYSICAL EXAM: Vital signs: Temperature is 97.9 degrees, pulse rate 96, respiratory rate 18, blood pressure 140/116, O2 saturation 100% on 2 L nasal cannula. General: This is a chronically ill- appearing, elderly female. She is lying in bed, currently in no acute distress. HEENT: Atraumatic, normocephalic. Oral mucous membranes are pink and moist. Conjunctivae are pale. Cardiovascular: Heart rate and rhythm are regular. Sinus rhythm on the monitor, which appears to have a 1st-degree AV block. Respiratory: Lung sounds are clear to auscultation in the mid and upper lobes, diminished in the bases. Abdomen is soft, round and tender to palpation. Bowel sounds are active. Neurologic: She is awake, alert and appropriate. Able to move all extremities in the bed and reportedly has been walking in the halls with physical therapy. LAB & X-RAY: Today her white count is 2.71, hemoglobin 9, platelet count 190,000. Creatinine is 0.8. Estimated GFR is greater than 60. Her urine previously grew an Escherichia coli. Blood cultures have shown no growth after 48 hours. No imaging reports today. ASSESSMENT AND PLAN: Ms. Medrano is being treated for Escherichia coli urinary tract infection and a right lower lobe pneumonia. She is on day 3 of meropenem and states she is feeling better, with no pain on urination and no shortness of breath. She does have an occasional cough with white sputum. For now we will continue meropenem as ordered. These plans have been discussed with and recommended by Dr. Marcelino. COMORBIDITIES: for Ms. Medrano include that she is elderly with dementia, seizure disorder, and renal cancer with partial right nephrectomy. Dictated by LUIS Sosa for Dae Marcelino MD cc: Dae Marcelino MD [facility]
[2019-02-20] MEDS: NEURONTIN PO SCH (23:32)
[2019-02-21] MEDS: MERREM 1 GM in NS 50 ML IV SCH ×2 (01:50→10:45)
[2019-02-21 06:57] LABS: AGAP 10; BASO# 0.02 X1000 (0.0-0.2); BASO% 0.7 % (0.0-0.8); BUN 27 mg/dL (8-22); CHLORIDE 101 mmol/L (98-107); COSMO 278; CREATININE 0.9 mg/dL (0.5-0.9); EOS% 3.5 % (0.0-10.0); ESTIMATED GFR > 60; GLUCOSE 89 mg/dL (70-104); HEMATOCRIT 29.8 % (37.0-47.0); HEMOGLOBIN 9.1 g/dL (12.0-16.0); IMM GRAN# 0.02 X1000 (0.0-0.04); IMM GRAN% 0.7 % (0.0-0.5); LYMPH# 0.92 X1000 (1.2-3.4); LYMPH% 32.5 % (20.5-51.1); MCH 24.1 PG (27-31); MCHC 30.5 g/dL (33-37); MCV 78.8 FL (81-99); MONO# 0.39 X1000 (0.11-0.59); MONO% 13.8 % (1.7-9.3); MPV 10.7 FL (7.4-10.4); NEUT# 1.38 X1000 (1.4-6.5); NEUT% 48.8 % (42.2-75.2); PLT 205 X1000 (130-400); POTASSIUM 4.3 mmol/L (3.5-5.1); RBC 3.78 XMIL (4.2-5.4); RDW 16.6 % (11.5-14.5); SODIUM 137 mmol/L (136-145); TCO2 26 mmol/L (25-35); WBC 2.83 X1000 (4.8-10.8)
[2019-02-21 07:07] LABS: INR 1.04; PROTIME 14.5 Seconds (11.0-16.0)
[2019-02-21] MEDS: MIRALAX PO SCH (10:45)
[2019-02-21] MEDS: ZYPREXA PO SCH ×2 (10:45→23:12)
[2019-02-21] MEDS: ASPIRIN EC PO SCH (10:45)
[2019-02-21] MEDS: LINZESS PO SCH (10:45)
[2019-02-21] MEDS: WELLBUTRIN XL PO SCH (10:46)
[2019-02-21] MEDS: COLACE PO SCH ×2 (10:46→23:12)
[2019-02-21] MEDS: FOLIC ACID PO SCH (10:46)
[2019-02-21] MEDS ORDERED: NS 250 ML ONE (12:42)
--- NOTE | 2019-02-21 17:28 | PROGRESS NOTE ---
DATE: 02/21/2019 INTERVAL HISTORY: Patient's dyspnea remains resolved. No acute events overnight. No new complaints. Attempting to get a hold of family for consent for PICC line and to set up home antibiotics. REVIEW OF SYSTEMS: A 12 point review of systems negative except as per Interval History. LABORATORIES: WBC 2.8, hemoglobin 9.1, hematocrit 29.8, platelets 205,000. Basic metabolic panel unremarkable. VITALS: T-max 99.5 degrees, pulse 98, respirations 16, blood pressure 136/85, O2 saturation 94% on room air. PHYSICAL EXAMINATION: General: No acute distress. Chronically ill appearing. Vitals: As above. HEENT: Normocephalic, atraumatic. Poor dentition, sparse hair. Neck: No cervical adenopathy. Cardiovascular: Regular rate and rhythm. No murmurs, rubs, or gallops. Pulmonary: Largely clear to auscultation bilaterally. Abdomen: Soft, nontender, nondistended. Bowel sounds positive. Extremities: Peripheral pulses intact. No clubbing, cyanosis, or edema. Neurologic: Cranial nerves grossly intact, globally weak, but no focal deficits identified. Psychiatric: Normal mood, fairly normal affect. Awake, alert, oriented x3 currently. ASSESSMENT AND PLAN: 1. Syncope, likely related to acute infection and sepsis as below. 2. Right lung pneumonia, Escherichia coli urinary tract infection, sepsis. Patient on Merrem as per ID for treatment of pneumonia, and ESBL E coli urinary tract infection. Will need a total of 2 weeks. Trying to obtain PICC line set up for IV antibiotics. 3. Generalized weakness. Continue physical therapy while she is here. Patient continued to refuse rehabilitation placement. The plan is to go home with home health once this has been arranged. 4. Hypertension. Blood pressure control acceptable. Continue to monitor. 5. Elevated liver function tests, likely related to acute infections as above, now essentially resolved. 6. Dementia, fairly mild, as patient has been oriented and cooperative. 7. Possible seizure disorder. No seizure activity here. Continue home medications. 8. Anemia of chronic disease, stable. DISPOSITION: Likely discharge home with home health once PICC line has been obtained and home intravenous antibiotics have been arranged. [facility]
[2019-02-21] MEDS: AZACTAM 1 GM in NS 50 ML IV SCH ×2 (17:39→23:12)
[2019-02-21] MEDS: LOVENOX SUBQ SCH (18:10)
--- NOTE | 2019-02-21 19:24 | INFECTIOUS DISEASE PROGRESS NO ---
DATE: 02/21/2019 PRESENT ILLNESS: Ms. Medrano has Escherichia coli urinary tract infection and right lower lobe pneumonia. She also has a leukopenia and neutropenia. MEDICATIONS: She has been receiving meropenem 1 g IV every 8 hours, but due to her dropping blood counts we will discontinue this. OBJECTIVE: Vital signs: Temperature is 98 degrees, pulse rate 98, respiratory rate 16, blood pressure 136/85, O2 saturations 94% on room air. General: This is a chronically ill-appearing, elderly female. She is lying in bed, currently in no acute distress. HEENT: Atraumatic, normocephalic. Oral mucous membranes are pink and moist. She does have poor dentition. Conjunctivae are pale. Trachea is midline. Respiratory: Lung sounds are clear in the upper lobes, diminished in the mid and bases. Cardiovascular: Heart rate is regular. Abdomen is soft, round, and tender to palpation. Bowel sounds are active. Neurologic: She is awake, alert, and appropriate. She is forgetful, able to move around with some assistance. Integumentary: There is a new PICC line in place to the right upper arm. That site is without edema, erythema or drainage. LABORATORY DATA: Today her white count is 2.83, hemoglobin 9.1 platelet count 205,000, absolute neutrophil count is 1380. Creatinine is 0.9. Estimated GFR is greater than 60. Her urine has grown an Escherichia coli which is not extended-spectrum beta-lactamase producing. Blood cultures have shown no growth on this admission. DIAGNOSTIC DATA: No imaging reports today. ASSESSMENT AND PLAN: Ms. Medrano has Escherichia coli urinary tract infection which we have been treating with meropenem. She is feeling better; however, her blood counts continue to drop with her absolute neutrophil count down to 1300. We will go ahead and discontinue meropenem, and due to her significant penicillin allergies we will start her on aztreonam 1 g intravenously every 8 hours. I have called and talked with Twin at [facility] about running this medication through her insurance. She states she lives with her sister and that her sister can help her at home with her medications. Once we know that she is doing well on the aztreonam here in the hospital, we will plan on sending her home on that. We will check blood work in the morning. These plans have been discussed with and recommended by Dr. Marcelino. COMORBIDITIES: for Ms. Medrano include that she is elderly with dementia, seizure disorder and renal cancer, with a partial right nephrectomy. Dictated by LUIS Sosa for Dae Marcelino MD cc: Dae Marcelino MD [facility]
[2019-02-21] MEDS: NEURONTIN PO SCH (23:12)
[2019-02-22] MEDS: LOVENOX SUBQ SCH (06:13)
[2019-02-22 06:27] LABS: BASO# 0.03 X1000 (0.0-0.2); BASO% 0.8 % (0.0-0.8); EOS# 0.11 X1000 (0.0-0.7); HEMATOCRIT 31.3 % (37.0-47.0); HEMOGLOBIN 9.8 g/dL (12.0-16.0); LYMPH# 1.08 X1000 (1.2-3.4); LYMPH% 29.2 % (20.5-51.1); MCH 24.6 PG (27-31); MCHC 31.3 g/dL (33-37); MCV 78.6 FL (81-99); MONO# 0.36 X1000 (0.11-0.59); MONO% 9.7 % (1.7-9.3); MPV 10.3 FL (7.4-10.4); NEUT# 2.12 X1000 (1.4-6.5); NEUT% 57.3 % (42.2-75.2); PLT 226 X1000 (130-400); RBC 3.98 XMIL (4.2-5.4); RDW 16.8 % (11.5-14.5)
[2019-02-22 06:50] LABS: AGAP 9; BUN 30 mg/dL (8-22); CALCIUM 8.7 mg/dL (8.8-10.2); CHLORIDE 104 mmol/L (98-107); COSMO 280; CREATININE 0.9 mg/dL (0.5-0.9); ESTIMATED GFR > 60; GLUCOSE 94 mg/dL (70-104); POTASSIUM 4.7 mmol/L (3.5-5.1); SODIUM 137 mmol/L (136-145); TCO2 24 mmol/L (25-35)
[2019-02-22] MEDS: AZACTAM 1 GM in NS 50 ML IV SCH (08:25)
[2019-02-22] MEDS: WELLBUTRIN XL PO SCH (08:26)
[2019-02-22] MEDS: ZYPREXA PO SCH (08:26)
[2019-02-22] MEDS: LINZESS PO SCH (08:27)
[2019-02-22] MEDS: COLACE PO SCH (08:27)
[2019-02-22] MEDS: FOLIC ACID PO SCH (08:27)
[2019-02-22] MEDS: MIRALAX PO SCH (08:27)
[2019-02-22] MEDS: ASPIRIN EC PO SCH (08:27)
[2019-02-22 15:09] VITALS: BP 111/76
--- NOTE | 2019-02-22 21:20 | DISCHARGE SUMMARY ---
ADMISSION DATE: 02/15/2019 DISCHARGE DATE: 02/22/2019 PRIMARY CARE PROVIDER: LUIS Canchola. ADMISSION DIAGNOSES: 1. Syncope. 2. Weakness, multifactorial. 3. Right lower lobe pneumonia. 4. Transaminitis. 5. Elevated D-dimer. 6. History of hypertension. DISCHARGE DIAGNOSES: 1. Syncope likely related to an acute infection and sepsis. 2. Right lung pneumonia and Escherichia coli urinary tract infection with sepsis. 3. Generalized weakness. 4. Hypertension. 5. Elevated liver function tests likely related to an acute infection as above, now resolved. 6. Dementia, fairly mild. 7. Possible seizure disorder, stable. 8. Anemia of chronic disease, stable. SUMMARY OF FINDINGS: This is a 68-year-old female who presented to the ER after having a syncopal episode. She was noted to have vomited and was pale in color. She was found to be slightly anemic but appeared to be at her baseline. Her D-dimer was elevated at 3.32. Her pulmonary arteriogram showed no evidence of a pulmonary emboli. Her bilateral lower extremity venous Doppler showed an essentially normal bilateral lower extremity venous study. We did an echocardiogram on 02/16/2019 that showed an estimated ejection fraction of 65 to 70 percent with diastolic dysfunction. We did consult Infectious Disease and agreed with our current treatment. Her urine culture grew out a ESBL negative E coli UTI. She has been being treated appropriately. Has been afebrile for greater than 24 hours. White blood cell count is 3.70 today and so it is felt that she can safely be discharged home. DISCHARGE MEDICATIONS: Include aspirin 81 mg p.o. daily, bupropion 150 mg p.o. daily, famotidine 40 mg p.o. daily, folic acid 1 mg p.o. daily, gabapentin 300 mg p.o. at bedtime, Linzess 145 mg p.o. q.a.m., lisinopril 10 mg p.o. daily, olanzapine 5 mg p.o. daily, omeprazole 40 mg p.o. daily, Crestor 20 mg p.o. nightly, tramadol 50 mg p.o. daily. She has a PICC line for home antibiotic treatment through [facility] with home health services and will follow up with Infectious Disease, her primary care physician. All discharge instructions have been reviewed with the patient and she verbalizes understanding. TIME SPENT: 35 minutes. Dictated by LUIS Monzon for Rohit Salazar MD cc: LUIS Baumann
== END 2019-02-22 16:01 | disposition home health service (06) | DRG 871 ==
LOC: SUPCPDRO → ED 12:06 → SUATTDRO 21:19 → 3S 21:19 → 4N 02-17 11:05
PROVIDERS: ATTEND Internal Medicine
CPT/HCPCS: 36569; 70450; 71010; 71045; 71275; 74177; 76700; 80048; 80053; 80074; 80101; 80301; 80307; 80324; 80329; 80345; 80346; 80353; 80358; 80361; 80365; 81001; 82003; 82140; 82150; 82550; 82607; 82784; 82948; 83605; 83690; 83735; 83880; 83992; 84484; 85025; 85379; 85610; 85730; 87040; 87077; 87088; 87186; 93005; 93306; 93970; 94761; 96365; 97116; 97162; 97530; 99285; A9270; G0431; G0434; G0479; G0480; G6039; J1650; J1956; J2185; J7030; J7050; Q9967; S0073; XXXXX

== ENCOUNTER 2019-08-25 17:49 | Inpatient (IN) ==
[2019-08-25] MEDS ORDERED: NS 1,000 ML IV ONE ×4 (18:33→18:40)
[2019-08-25] MEDS ORDERED: NS 2,000 ML ONE (18:38)
--- NOTE | 2019-08-25 18:40 | Diag Imaging Result Doc PS360 ---
EXAM: CHEST-1 VIEW INDICATION: weakness, hx of PNA TECHNIQUE: One view COMPARISON: 03/05/2019 FINDINGS: Inspiration is slightly suboptimal. There is suggestion of mild subsegmental atelectasis at the right lower lung zone. The lungs are grossly clear, otherwise. There is no discrete pleural fluid collection or pneumothorax. The cardiomediastinal silhouette and central vasculature are grossly unremarkable. IMPRESSION: Suggestion of minimal subsegmental atelectasis on the right. No definite acute pathology by plain radiograph, otherwise. Electronically signed by Jamin Wood 08/25/2019 6:38 PM
[2019-08-25 19:12] LABS: INR 1.33; PROTIME 16.7 Seconds (11.0-16.0)
[2019-08-25 19:13] LABS: PTT 30.2 Seconds (22.3-41.8)
[2019-08-25 19:18] LABS: BASO# 0.03 X1000 (0.0-0.2); BASO% 0.3 % (0.0-0.8); EOS# 0.01 X1000 (0.0-0.7); EOS% 0.1 % (0.0-10.0); HEMATOCRIT 26.8 % (37.0-47.0); HEMOGLOBIN 8.8 g/dL (12.0-16.0); IMM GRAN# 0.16 X1000 (0.0-0.04); IMM GRAN% 1.4 % (0.0-0.5); LYMPH# 0.97 X1000 (1.2-3.4); LYMPH% 8.3 % (20.5-51.1); MCH 23.6 PG (27-31); MCHC 32.8 g/dL (33-37); MCV 71.8 FL (81-99); MONO# 1.14 X1000 (0.11-0.59); MONO% 9.7 % (1.7-9.3); NEUT# 9.41 X1000 (1.4-6.5); NEUT% 80.2 % (42.2-75.2); PLT 123 X1000 (130-400); RBC 3.73 XMIL (4.2-5.4); RDW 16.7 % (11.5-14.5); WBC 11.72 X1000 (4.8-10.8)
[2019-08-25 19:40] LABS: BANDS 2 % (0-1); EOS 2 % (1-10); LYMPHS 2 % (21-51); MONO 9 % (1-9); SEGS 85 % (42-75)
[2019-08-25 19:42] LABS: ALB/GLOB RATIO 0.8; ALBUMIN 2.5 g/dL (3.5-5.0); CALCIUM 7.6 mg/dL (8.8-10.2); CREATININE 2.7 mg/dL (0.5-0.9); POTASSIUM 3.1 mmol/L (3.5-5.1); TOTAL BILIRUBIN 2.03 mg/dL (0.20-1.00); TOTAL PROTEIN 5.6 g/dL (6.3-8.3)
--- NOTE | 2019-08-25 20:17 | EKG Report ---
Test Performed on : 08/25/2019 6:10:08 PM Test Reason : weakness, hx CAD Blood Pressure : / mmHG Vent. Rate : 104 BPM Atrial Rate : 104 BPM P-R Int : 198 ms QRS Dur : 126 ms QT Int : 372 ms P-R-T Axes : 052 -01 -01 degrees QTc Int : 489 ms Sinus tachycardia. Nonspecific intraventricular block Inferior infarct , age undetermined Abnormal ECG When compared with ECG of 15-FEB-2019 12:15, QRS duration has increased Unconfirmed Result
--- NOTE | 2019-08-25 22:30 | HISTORY AND PHYSICAL ---
PRIMARY CARE PHYSICIAN: Unknown. CHIEF COMPLAINT: Weakness, altered mental status. HISTORY OF PRESENTING ILLNESS: A 69-year-old female with a history of dementia, hypertension, dyslipidemia, CVA, was brought to the emergency department due to patient having worsening weakness. The patient seemed moderately confused and there is no family around. Most of the history is obtained from previous records. The patient apparently was noted to have elevated creatinine and it was suspected possibly she was dehydrated. Due to her presenting symptoms, she will require admission for further management. PAST MEDICAL HISTORY: Includes dementia, hypertension, dyslipidemia, CVA. PAST SURGICAL HISTORY: Hysterectomy, right nephrectomy, skin surgeries. ALLERGIES: Penicillin. CURRENT MEDICATIONS: Include aspirin 81 mg p.o. daily, bupropion 150 mg p.o. daily, folic acid 1 mg p.o. daily, lisinopril 10 mg p.o. daily, olanzapine 5 mg p.o. b.i.d., rosuvastatin 20 mg p.o. nightly. SOCIAL HISTORY: No history of smoking, alcohol or illicit drug use. She lives with her sister. FAMILY HISTORY: No history of coronary disease. REVIEW OF SYSTEMS: Limited due to patient's confusion. PHYSICAL EXAMINATION: GENERAL: Elderly female. She is somewhat confused but without any respiratory distress. VITAL SIGNS: Temperature 97.8 degrees, pulse 104, respirations 24, blood pressure 79/62. HEENT: Atraumatic, normocephalic. Extraocular movements intact. PERRLA. NECK: No masses. CHEST: Clear to auscultation. CARDIOVASCULAR: Regular rate and rhythm. ABDOMEN: Soft. Positive bowel sounds. EXTREMITIES: Trace edema. NEUROLOGIC: She is awake, alert, oriented x1. : No bladder distention. SKIN: Warm. LABORATORIES AND STUDIES: WBC 11.72, hemoglobin 8.8, hematocrit 26.8, platelets 123,000. Sodium 136, potassium 3.1, chloride 100, CO2 is 20, BUN is 84, creatinine is 2.7, glucose is 111. Chest x-ray shows some segmental atelectasis on the right. No definite acute pathology seen. ASSESSMENT: This is a 69-year-old female with a history of dementia, hypertension, dyslipidemia and cerebrovascular accident, brought to the emergency department due to patient having worsening weakness and confusion. She was seen in the seen in the emergency department. She was found to be in renal failure. She will require admission for further management. 1. Altered mental status multifactorial. 2. Generalized weakness and overall deconditioning. 3. Acute dehydration. 4. Acute kidney injury. 5. Dementia. PLAN: 1. We will admit patient to PVC. 2. Continue with neuro checks. 3. Continue with IV fluid hydration and support treatment. 4. We will monitor renal function. 5. We will continue with neuro checks. 6. We will put patient on DVT prophylaxis SCD. 7. We will continue to follow and reassess. Make further recommendation based on patient's clinical course. cc: Taurus Cardona MD
[2019-08-25 22:48] LABS: URINE SOURCE CLEAN CATCH
[2019-08-25 22:51] LABS: BILIRUBIN URINE NEGATIVE (NEGATIVE); BLOOD URINE TRACE (NEGATIVE); COLOR YELLOW; GLUCOSE URINE NEGATIVE (NEGATIVE); KETONE URINE NEGATIVE (NEGATIVE); LEUKOCYTES URINE SMALL (NEGATIVE); NITRITE URINE NEGATIVE (NEGATIVE); PROTEIN URINE TRACE mg/dL (NEGATIVE); SP GRAVITY URINE 1.015; TURBIDITY URINE HAZY (CLEAR); UROBILINOGEN URINE NORMAL (NORMAL)
[2019-08-25 22:53] LABS: UR EPITHELIAL CELLS >10 /HPF (<10); URINE BACTERIA 4+ /HPF
[2019-08-25] MEDS ORDERED: ZOFRAN IV PRN (22:57)
[2019-08-26] MEDS: NS 1,000 ML IV SCH ×3 (00:15→21:49)
[2019-08-26 07:03] LABS: CALCIUM 8.1 mg/dL (8.8-10.2); CREATININE 2.1 mg/dL (0.5-0.9); MAGNESIUM 1.9 mg/dL (1.5-2.7)
[2019-08-26 07:12] LABS: BASO# 0.02 X1000 (0.0-0.2); BASO% 0.2 % (0.0-0.8); EOS# 0.01 X1000 (0.0-0.7); EOS% 0.1 % (0.0-10.0); HEMOGLOBIN 7.7 g/dL (12.0-16.0); IMM GRAN# 0.15 X1000 (0.0-0.04); IMM GRAN% 1.5 % (0.0-0.5); LYMPH# 0.62 X1000 (1.2-3.4); MCH 23.5 PG (27-31); MCHC 32.1 g/dL (33-37); MCV 73.2 FL (81-99); MONO# 0.99 X1000 (0.11-0.59); MONO% 9.6 % (1.7-9.3); MPV 12.6 FL (7.4-10.4); NEUT# 8.54 X1000 (1.4-6.5); NEUT% 82.6 % (42.2-75.2); PLT 128 X1000 (130-400); RBC 3.28 XMIL (4.2-5.4); RDW 16.9 % (11.5-14.5); WBC 10.33 X1000 (4.8-10.8)
[2019-08-26] MEDS ORDERED: ROCEPHIN 1 GM in NS 50 ML IV SCH (07:45)
[2019-08-26 07:47] LABS: BANDS 8 % (0-1); HYPOCHROM 1+; LYMPHS 6 % (21-51); MONO 4 % (1-9); SEGS 82 % (42-75)
[2019-08-26] MEDS ORDERED: ASPIRIN EC PO SCH (09:00)
[2019-08-26] MEDS: CULTURELLE PO SCH (09:26)
[2019-08-26] MEDS: VITAMIN D PO SCH (09:26)
[2019-08-26] MEDS: ZYPREXA PO SCH ×2 (09:26→21:04)
[2019-08-26] MEDS: FOLIC ACID PO SCH (09:26)
[2019-08-26] MEDS: WELLBUTRIN XL PO SCH (09:26)
[2019-08-26] MEDS ORDERED: MAXIPIME 2 GM in NS 100 ML IV SCH (12:45)
[2019-08-26 13:23] LABS: HEMATOCRIT 26.2 % (37.0-47.0); HEMOGLOBIN 8.4 g/dL (12.0-16.0)
--- NOTE | 2019-08-26 13:40 | PROGRESS NOTE ---
DATE: 08/26/2019 INTERVAL HISTORY: The patient was admitted with confusion and weakness. Following commands pretty well this morning but speaks extremely softly and is very difficult to understand. Still with profound weakness of both lower extremities and is somewhat weak in the upper extremities as well. Blood culture is positive for gram-negative rods this morning. REVIEW OF SYSTEMS: Unable to obtain full review of systems secondary to patient's mental status. LABS: WBC 10.3, hemoglobin 7.7, hematocrit 24.0, platelets 128,000. Sodium 140, potassium is 3, BUN 73, creatinine 2.1, glucose 76, lactate 1.1. Initial blood cultures with gram-negative rods. VITALS: T-max 98.7 degrees, pulse 91, respirations 20, blood pressure 114/60, O2 saturation 100% on room air. PHYSICAL EXAMINATION: General: No acute distress. Chronically ill-appearing. Vitals: As above. HEENT: Large seborrheic keratosis across her scalp. Poor dentition. Still somewhat dry mucous membranes. Cardiovascular: Regular rate and rhythm. Pulmonary: Clear to auscultation bilaterally. No wheezing, rales, or rhonchi. Abdomen: Soft, nontender, nondistended. Bowel sounds positive. Extremities: Peripheral pulses faint but present. No clubbing or cyanosis. Neurologic: Speech not very clear but not clearly slurred. Uncertain as to her exact baseline here. Pretty significant global weakness with severe weakness of the lower extremities. She will squeeze with her hands on commands but can barely move her legs at all. No clear focal deficits. Psychiatric: Asleep but arouses easily. Attempts to follow commands but speech appears difficult for her. Skin: No new-appearing rashes or lesions noted. ASSESSMENT AND PLAN: 1. Dehydration, acute kidney injury, patient with presumed poor oral intake. Significantly elevated creatinine above baseline up to 2.7 on admission with a baseline of 0.8 just a few months ago. Does appear to be improving with fluids, down to 2.1 today. Continue intravenous hydration and monitor closely. 2. Urinary tract infection, gram-negative bacteremia. The patient was initially placed on Rocephin for a urinary tract infection given gram-negative bacteremia. We will change to cefepime for now. Consulted infectious disease. Repeat blood cultures in the morning. We will go ahead and repeat urine culture as well as her initial urinalysis was pretty contaminated and is unlikely to give a good specimen. 3. Hypokalemia. Still low this morning. We will further replete and monitor. 4. Anemia. No signs or symptoms of active bleeding but a little more downtrend this morning. Suspect this is dilutional but we will go ahead and recheck blood counts this afternoon as well as checking iron studies. If she trends down significantly more, than we will transfuse. 5. Hypertension. Holding home lisinopril currently given dehydration and kidney failure but blood pressure appears to be pretty normotensive. 6. Hyperlipidemia. Continue home Crestor. 7. Likely situational depression. Continue home bupropion and olanzapine for now. 8. Disposition. I suspect patient will need rehab placement once acute issues are resolved but has a way to go still with acute kidney injury and now with gram-negative bacteremia.
--- NOTE | 2019-08-26 16:21 | Diag Imaging Result Doc PS360 ---
US RENAL 2 (RETROPER) COMPLETE - 08/26/2019 INDICATION: UTI TECHNIQUE: COMPARISON: 03/08/2019 FINDINGS: There is a stable complex parapelvic cyst versus hydronephrosis of the left kidney. This area measures 2.8 x 1.8 cm. Otherwise the kidneys are grossly normal in echotexture. The right kidney measures 8.8 x 5.2 x 4.7 cm. The left kidney measures 9.1 x 4.5 x 5.1 cm. The urinary bladder is collapsed and otherwise unremarkable. IMPRESSION: No change from prior exams. Electronically signed by Rick Maldonado 08/26/2019 4:19 PM
--- NOTE | 2019-08-26 16:35 | INFECTIOUS DISEASE CONSULT REP ---
DATE: 08/26/2019 CONCLUSION: The patient has a gram-negative ruby bacteremia which I think is secondary to a urinary tract infection. RECOMMENDATIONS: I agree with treating the patient with cefepime pending culture results. I have decreased the dose of cefepime to 1 g IV every 12 hours because of the patient's end-stage renal disease. Also, I have ordered a renal ultrasound to see if the patient has any kind of blockage to the kidneys or if the patient has an abscess in the kidneys. DISCUSSION: Patient is unable to provide a history. The information I got was from the computer. The patient was admitted with weakness and an altered mental status. She is unable to give any information and no family member is present. Her studies show a CBC with a white count of 10,330, hemoglobin 8.4, and platelet count 128,000. Creatinine is 2.1. GFR is 23. Alkaline phosphatase 184. Urinalysis showed white cells and bacteria. Urine culture is pending. The patient thus far has gram-negative rods growing in 1 of 2 blood cultures. Chest x-ray shows right subsegmental atelectasis. PAST MEDICAL HISTORY: Dementia, hypertension, hyperlipidemia, stroke. PAST SURGICAL HISTORY: Positive for hysterectomy, right nephrectomy, and skin surgeries. MEDICATIONS: Taken in the in the [facility] include Wellbutrin, cholecalciferol, folic acid, Linzess, lisinopril, olanzapine and Crestor. SOCIAL HISTORY: The patient does not smoke cigarettes, drink alcoholic beverages or use illicit drugs. She lives with her sister. FAMILY HISTORY: There is no history of coronary artery disease. REVIEW OF SYSTEMS: Unable to be obtained. PHYSICAL EXAMINATION: Vital Signs: Temperature is 98.7 degrees, pulse 91, respirations 21, blood pressure 114/60. The patient weighs 160 pounds. General: This is an ill-appearing elderly female. She is in no acute distress. Head/eyes/ears/nose/throat: She appears to be able to hear my spoken words. She did not answer questions that I asked her. I got a brief grimace of her mouth and it looks like she has missing teeth and poor oral hygiene. Neck: No meningismus. Lungs: Clear to auscultation. Cardiovascular: Heart rate is regular. Abdomen: Soft and nontender. Neurologic: The patient is awake. She did follow request to move her extremities and arms, but she could only move the arms and legs a very small amount. There was no tremor. Extremities: There was muscle atrophy and her toenails on the great toes were very thick and long. Integument: No rash noted. Thank you for the consult. cc: Dae Marcelino MD
[2019-08-26] MEDS ORDERED: MAXIPIME 1 GM in NS 50 ML IV SCH (18:00)
[2019-08-26] MEDS: CRESTOR PO SCH (21:04)
[2019-08-27] MEDS ORDERED: MAXIPIME 1 GM in NS 50 ML IV SCH (01:00)
[2019-08-27] MEDS: NS 1,000 ML IV SCH ×2 (05:25→17:00)
[2019-08-27 06:04] LABS: CALCIUM 7.4 mg/dL (8.8-10.2); CREATININE 1.7 mg/dL (0.5-0.9); POTASSIUM 2.6 mmol/L (3.5-5.1)
[2019-08-27 06:05] LABS: IRON SATURATION 13 %; TIBC 165 ug/dL; TOTAL IRON 21 ug/dL (49-151); UNBOUND IRON 144 ug/dL (112-346)
[2019-08-27 06:08] LABS: BASO# 0.02 X1000 (0.0-0.2); BASO% 0.2 % (0.0-0.8); EOS# 0.01 X1000 (0.0-0.7); EOS% 0.1 % (0.0-10.0); HEMATOCRIT 21.1 % (37.0-47.0); HEMOGLOBIN 6.7 g/dL (12.0-16.0); IMM GRAN# 0.24 X1000 (0.0-0.04); IMM GRAN% 2.3 % (0.0-0.5); LYMPH# 0.73 X1000 (1.2-3.4); MCH 23.5 PG (27-31); MCHC 31.8 g/dL (33-37); MONO# 0.84 X1000 (0.11-0.59); MONO% 8.1 % (1.7-9.3); MPV 11.4 FL (7.4-10.4); NEUT# 8.54 X1000 (1.4-6.5); NEUT% 82.3 % (42.2-75.2); PLT 144 X1000 (130-400); RBC 2.85 XMIL (4.2-5.4); RDW 17.4 % (11.5-14.5); WBC 10.38 X1000 (4.8-10.8)
[2019-08-27 07:07] LABS: ANISOCYTOSIS 1+; BANDS 4 % (0-1); HYPOCHROM 1+; LYMPHS 2 % (21-51); MICROCYTOSIS 2+; MONO 6 % (1-9); SEGS 82 % (42-75)
[2019-08-27 07:29] LABS: RETIC% 0.78 % (0.8-2.1); RETIC-HE 23.7 PG (28.2-36.6)
--- NOTE | 2019-08-27 07:31 | INFECTIOUS DISEASE PROGRESS NO ---
DATE: 08/27/2019 PRESENT ILLNESS: The patient has a gram-negative ruby bacteremia which I think is secondary to a gram-negative ruby urinary tract infection. An ultrasound of the left kidney showed a cyst versus hydronephrosis. MEDICATIONS: The patient is on cefepime 1 g IV every 12 hours. I plan to increase that dose to 2 g IV every 12 hours because the patient's renal function is improving. PHYSICAL EXAMINATION: Vital Signs: Temperature is 98.9 degrees, pulse 84, respirations 23, blood pressure 127/53. General: This is an ill-appearing elderly female. She is in no acute distress. Head/eyes/ears/nose/throat: No drainage noted from the nose or ears. I did not see any white patches in her mouth. Neck: No pain with movement of her neck. Lungs: Clear to auscultation. Cardiovascular: Heart rate is regular with fairly frequent premature beats. Abdomen: Soft and nontender. Neurologic: The patient is awake. She did move her extremities and open her mouth to request. She did not talk. LAB AND X-RAY: The patient's CBC shows a white count 68828, hemoglobin 6.7, platelet count 144,000. Creatinine is 1.7. GFR is 30. Blood cultures are growing gram-negative rods. Repeat blood cultures are pending. Urine culture is pending. Renal ultrasound shows a left renal cyst versus hydronephrosis. ASSESSMENT AND PLAN: Patient has a gram-negative ruby bacteremia which I think is secondary to a gram-negative ruby urinary tract infection. I am going to increase the dose of cefepime to 2 g IV every 12 hours because the patient's renal function is improved. Also, I put a consult in for Dr. Ulloa to see the patient regarding the renal ultrasound which showed a cyst versus hydronephrosis. COMORBIDITIES: She is elderly. She has dementia. In the patient's history and physical dictated when the patient came in the hospital, it was said that the patient had a right nephrectomy. However, on renal ultrasound, both kidneys are present. On one of the kidneys, there was a mass found a few years ago. cc: Dae Marcelino MD
[2019-08-27] MEDS: ZYPREXA PO SCH ×2 (09:38→20:28)
[2019-08-27] MEDS: CULTURELLE PO SCH (09:38)
[2019-08-27] MEDS: FOLIC ACID PO SCH (09:38)
[2019-08-27] MEDS: VITAMIN D PO SCH (09:38)
[2019-08-27] MEDS ORDERED: NS 500 ML IV ONE (09:48)
[2019-08-27] MEDS: WELLBUTRIN XL PO SCH (11:07)
--- NOTE | 2019-08-27 12:23 | Diag Imaging Result Doc PS360 ---
CT ABD/PELVIS W/IV CONT ONLY - 08/27/2019 INDICATION: renal cyst vs hydronephrosis COMPARISON: 02/15/2019 FINDINGS: There is some scattered atelectasis in the lung bases. There is mild cardiomegaly. There are numerous stable gallstones in the gallbladder. There is some gallbladder wall thickening and surrounding inflammatory edema. There is near complete thrombosis of the main portal vein. All the intrahepatic portal veins are also thrombosed. The hepatic arteries and hepatic veins are patent. There are peripelvic cysts of the left kidney stable from prior exams. There are surgical changes of the lateral cortex of the right kidney. Stable tiny adjacent nodular density measuring about 9 mm, extending into the lateral perinephric fat. There is moderate atrophy of the pancreas. There is splenomegaly. The spleen measures 14.7 x 6.4 cm. There is a small fat-containing ventral hernia just above the umbilicus, stable from prior. There is trace ascites. There is significant wall thickening of several loops of distal small bowel and the proximal colon compatible with severe enterocolitis. Uterus is absent. Urinary bladder and rectum are normal. There are moderate degenerative changes of the spine. No acute or suspicious bony lesion. IMPRESSION: 1. Probable cholecystitis. Numerous small stones in the gallbladder. 2. Severe enterocolitis of the distal small bowel and proximal colon. 3. No hydronephrosis. Parapelvic cysts of the left kidney. 4. 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 The reason is unclear. 5. Splenomegaly. This exam was performed using automated exposure control, adjustment of mA or kV according to patient size, and/or use of iterative reconstruction technique Electronically signed by Rick Maldonado 08/27/2019 12:21 PM
[2019-08-27] MEDS: MAXIPIME 2 GM in NS 100 ML IV SCH ×2 (12:37→17:05)
--- NOTE | 2019-08-27 16:15 | Diag Imaging Result Doc PS360 ---
CHEST-PORTABLE - 08/27/2019 INDICATION: s/p cvl COMPARISON: 08/25/2019 FINDINGS: There is a right internal jugular central line in good position with the catheter tip at the cavoatrial junction. The lungs are clear. Heart size is normal. No pneumothorax or pleural effusion. IMPRESSION: No complication. Electronically signed by Rick Maldonado 08/27/2019 4:13 PM
--- NOTE | 2019-08-27 16:52 | GENERAL SURGERY CONSULTATION ---
DATE: 08/27/2019 REASON FOR CONSULTATION: Cholecystitis. HISTORY OF PRESENT ILLNESS: This is a 69-year-old female who presented to the emergency room with complaints of weakness and possible passing out. She was found to be confused and was admitted for her altered mental status, deconditioning, acute dehydration, acute kidney injury etc. The patient is noted to be a poor historian. She really offers nothing on her own but on further questioning, she denies abdominal pain. She does report some nausea. No exacerbating or relieving factors. Onset is unknown. Frequency is unknown. Since admission she had a renal ultrasound which showed left parapelvic cysts. This was followed up with an abdominal pelvis CT scan which shows multiple stones in the gallbladder and gallbladder wall thickening. There is portal vein thrombosis, left kidney parapelvic cyst and severe enterocolitis of the distal small bowel and proximal colon. PAST MEDICAL HISTORY: Dementia, hypertension, stroke, dyslipidemia, squamous cell cancer of the scalp. PAST SURGICAL HISTORY: Hysterectomy, right nephrectomy. ALLERGIES: Penicillin. HOME MEDICATIONS: Aspirin, bupropion, folic acid, lisinopril, olanzapine, rosuvastatin. SOCIAL HISTORY: Negative tobacco, alcohol or illicit drug use. She lives with family. FAMILY HISTORY: Reviewed and noncontributory at least per the chart. REVIEW OF SYSTEMS: Unobtainable. PHYSICAL EXAMINATION: Vital Signs: Temperature 97.4 degrees, pulse 86, respirations 18, blood pressure 137/64, O2 saturation 99%. General: Elderly female who looks older than her stated age and appears to be weak, deconditioned and chronically ill. She is nontoxic appearing. HEENT: Normocephalic, atraumatic. Extraocular muscles are intact. Pupils are equal, round, reactive to light. Sclerae anicteric. She does have a large crusty skin lesion on the scalp. Neck: Supple. No thyromegaly. CV: Regular rate and rhythm. Respiratory: Bilateral breath sounds with some mild wheeze. No increased work of breathing. GI: Soft, nondistended, tender in the epigastrium. No rebound or guarding. Extremities: No clubbing, cyanosis, or edema. Skin: Warm and dry. No rash. Musculoskeletal: She is very weak and moves very little. LABORATORY: White cell count 10, hemoglobin 6.7, hematocrit 21, platelet count 144,000. Electrolytes reviewed notable for potassium 2.6, BUN 49, creatinine 1.7, total bilirubin 2.0, AST 26, ALT 29, alkaline phosphatase 194, albumin 2.5. Urinalysis positive 4+ bacteria, 10 to 20 white blood cells however negative nitrite. Urine culture is positive for gram-negative rods. Blood culture is also positive for gram-negative rods. IMAGING: As described above in HPI. ASSESSMENT/PLAN: 69-year-old female with weakness, deconditioning, gram-negative bacteremia, gram- negative urinary tract infection, probable enterocolitis, possible cholecystitis and general deconditioning. We will order an abdominal ultrasound to further evaluate the gallbladder and I may follow that up with a HIDA scan for further clarification. I agree with broad-spectrum antibiotics to cover for cholecystitis at this time, she is on cefepime. In addition, she has poor peripheral venous access. Multiple IV attempts have been made by the staff so I will place a central line. I discussed with her including the risks of bleeding, infection, pneumothorax and other imponderables. She understands and agrees to proceed. cc: Ritesh Goddard MD
--- NOTE | 2019-08-27 16:53 | OPERATIVE NOTE ---
PROCEDURE DATE: 08/27/2019 PREOPERATIVE DIAGNOSIS: Poor peripheral venous access, bacteremia, urinary tract infection, altered mental status. POSTOPERATIVE DIAGNOSIS: Poor peripheral venous access, bacteremia, urinary tract infection, altered mental status. PROCEDURE PERFORMED: Insertion of central venous catheter with ultrasound guidance. SURGEON: Ritesh Goddard MD. ESTIMATED BLOOD LOSS: Scant. COMPLICATIONS: None apparent. FINDINGS: The right internal jugular vein was visualized with ultrasound. It was compressible, patent without thrombus. TECHNIQUE: The patient was placed in Trendelenburg in her hospital bed. Her right neck was prepped and draped in usual sterile fashion. 1% lidocaine was used to anesthetize the skin over the right internal jugular vein which was found with ultrasound. The vein was then accessed under ultrasound guidance with a needle and syringe. The wire passed through the needle easily. The track was dilated. A triple-lumen catheter was passed over the wire into the vein via the Seldinger technique. Each port tirso back blood easily and was flushed with saline. Sterile caps were applied. It was anchored to the skin with silk suture and sterile dressing was applied. There were no apparent complications. cc: Ritesh Goddard MD
--- NOTE | 2019-08-27 17:07 | PROGRESS NOTE ---
DATE: 08/27/2019 SUBJECTIVE: This morning, Ms. Medrano referred to be doing well. She interacted very minimal with me. She was more sleepy than engaging in any conversation. She did say, however, that she was feeling weak. OBJECTIVE: Vital signs: Blood pressure is 137/64, pulse of 83, respirations 18, temperature is 97.4 degrees. General: Ms. Medrano is a 59-year-old female. She was in bed. No distress. HEENT: Mucosa is slightly pale. Anicteric. Acyanotic. The patient has very poor dentition and the oral mucosa was slightly dry. Chest: Clear to auscultation. No crepitations. No rhonchi. Cardiovascular: Regular rate and rhythm. Abdomen: Soft, was distended, but nontender. There is a small periumbilical hernia. Extremities: No pedal edema. Central Nervous System: Patient was sleepy but easily arousable and had slightly dysarthric speech but clear enough to understand what she meant. LABORATORY DATA: Has also been reviewed. Patient has microcytic anemia with hemoglobin of 6.7. Chemistry is also reviewed. Creatinine is down to 1.7. Rest of chemistry is unremarkable. Potassium 2.6. Iron studies have been noted. A CT scan of the abdomen and pelvic which was done today shows numerous gallstones with possible cholecystitis. Severe enterocolitis of the distal small bowel and proximal colon. There is a parapelvic cyst and a complete thrombosis of the portal vein. ASSESSMENT: 1. Altered mental status on presentation presumably due to sepsis. 2. Gram-negative ruby bacteremia from urinary tract infection. We will still awaiting the ID and sensitivity. 3. Remote history of right renal cell carcinoma status post right partial nephrectomy. 4. Clinical volume depletion improved. 5. Cholelithiasis with possible cholecystitis. I have consulted surgery. 6. Severe enterocolitis of the distal small bowel and proximal colon. The patient denies having any diarrhea. 7. 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 The patient has a remote history of renal cell carcinoma. Unsure if this is related. We will do a hypercoagulable workup and get Hematology/Oncology to evaluate her. 8. Chronic pancreatitis on imaging studies. 9. Splenomegaly of also unclear etiology. Hematology/Oncology has been consulted. 10. Microcytic anemia. The patient's hemoglobin and hematocrit has dropped below 7. We will group and crossmatch and transfuse her 2 PRBCs. cc: Leo Cunningham MD MTDDavid
--- NOTE | 2019-08-27 19:14 | CONSULTATION ---
DATE OF CONSULTATION: 08/27/2019 HISTORY OF PRESENT ILLNESS: This 69-year-old female with history of dementia, hypertension, status post CVA was admitted with increased mental status changes and probable dehydration. Apparently at admission, the patient was very confused and she is somewhat better at present, but still does not answer questions completely appropriately. She answers most questions with no. The patient's ultrasound revealed a question of hydronephrosis on the left versus parapelvic cyst. Reviewing the CT scan from several years ago, it appeared she has parapelvic cysts. The patient is growing a gram-negative ruby from the urine and 1 blood culture. The patient states she is feeling better and is being transfused at present, as well as being on broad-spectrum IV antibiotics. Because of the patient's positive blood culture, a CT scan of the abdomen and pelvis was obtained with low-dose contrast. This, again, confirmed small left parapelvic cysts, with a normal left and right collecting system. PAST MEDICAL HISTORY: Dementia, hypertension, elevated cholesterol status post CVA. PAST SURGICAL HISTORY: Hysterectomy, skin excision that appears to be from her scalp and is probably squamous cell carcinoma. SOCIAL HISTORY: She states she lives at home with her sister. There is no tobacco or alcohol use. ALLERGIES: She is allergic to penicillin. Her answers to review of systems questions is no. PHYSICAL EXAMINATION: General: A thin elderly appearing white female who is essentially bald with areas of hyperkeratosis of the scalp. HEENT: Normal for age. Lungs: Clear. Cardiovascular: Regular rate and rhythm. Abdomen: Mildly protuberant, soft, but direct tenderness in the left lower quadrant, but no guarding or rebound. Normal bowel sounds. Genitourinary: Deferred. Extremities: No clubbing, cyanosis, or edema. Neuro: She appears somewhat confused, but is alert. Extremities: No C, C or E. LABORATORY EVALUATION: He has a white count of 10.38, a hemoglobin is 6.7, hematocrit 21.1 and she is being transfused. Serum sodium is 145, potassium 2.6, chloride 114, bicarb 17, BUN 49, creatinine 1.7. IMPRESSION: Patient with gram-negative bacteremia and urinary tract infection with a normal CT scan of the urinary system. Recommend continuing broad-spectrum IV antibiotics, nothing to add from a urological point of view at this time. Thank you for this consultation. cc: Babak Ulloa MD
--- NOTE | 2019-08-27 20:04 | Diag Imaging Result Doc PS360 ---
EXAM: US GB < RUQ (LIMITED) HISTORY: cholelithiasis TECHNIQUE: Right upper quadrant ultrasound COMPARISON: None. FINDINGS: The pancreas and inferior vena cava are predominantly obscured. No aortic aneurysm. There is fatty infiltration of the liver. It is difficult to penetrate the liver. There are multiple echogenic structures within the gallbladder. The common bile duct is poorly seen. No right-sided hydronephrosis. IMPRESSION: 1.Cholelithiasis 2.Fatty infiltration of the liver Electronically signed by Humberto Dos Santos 08/27/2019 8:02 PM
[2019-08-27] MEDS: CRESTOR PO SCH (20:27)
[2019-08-28] MEDS: NS 1,000 ML IV SCH ×3 (00:32→20:13)
[2019-08-28 02:27] LABS: BASO# 0.03 X1000 (0.0-0.2); BASO% 0.3 % (0.0-0.8); EOS# 0.01 X1000 (0.0-0.7); EOS% 0.1 % (0.0-10.0); HEMATOCRIT 27.1 % (37.0-47.0); IMM GRAN# 0.28 X1000 (0.0-0.04); IMM GRAN% 2.7 % (0.0-0.5); LYMPH# 0.64 X1000 (1.2-3.4); LYMPH% 6.1 % (20.5-51.1); MCH 25.9 PG (27-31); MCHC 33.2 g/dL (33-37); MCV 78.1 FL (81-99); MONO# 0.71 X1000 (0.11-0.59); MONO% 6.8 % (1.7-9.3); MPV 11.2 FL (7.4-10.4); NEUT# 8.79 X1000 (1.4-6.5); PLT 160 X1000 (130-400); RBC 3.47 XMIL (4.2-5.4); RDW 18.7 % (11.5-14.5); WBC 10.46 X1000 (4.8-10.8)
[2019-08-28 02:40] LABS: CALCIUM 7.8 mg/dL (8.8-10.2); CREATININE 1.4 mg/dL (0.5-0.9); POTASSIUM 2.6 mmol/L (3.5-5.1)
[2019-08-28 02:41] LABS: DIRECT BILIRUBIN 1.3 mg/dL (0.00-0.20); TOTAL BILIRUBIN 2.1 mg/dL (0.20-1.00)
[2019-08-28 02:52] LABS: BANDS 1 % (0-1); LYMPHS 2 % (21-51); MONO 4 % (1-9); SEGS 93 % (42-75)
[2019-08-28] MEDS: MAXIPIME 2 GM in NS 100 ML IV SCH (04:12)
[2019-08-28] MEDS ORDERED: KLOR-CON PO ONE (06:03)
--- NOTE | 2019-08-28 07:25 | INFECTIOUS DISEASE PROGRESS NO ---
DATE: 08/28/2019 PRESENT ILLNESS: The patient has a gram-negative ruby bacteremia, which I think arose from a gram- negative ruby urinary tract infection. Unfortunately, the identification of the organisms is not yet back. The patient, on ultrasound, has a cyst versus hydronephrosis. I have put in a consult for Dr. Ulloa to decide about the possibility of a cyst versus hydronephrosis. On CT scan the patient also was found to have possible cholecystitis. Dr. Goddard is following the patient for that diagnosis. He has put in an internal jugular venous catheter as well. The CT scan of the abdomen also showed enterocolitis. MEDICATIONS: The patient is on cefepime 2 g IV every 12 hours. PHYSICAL EXAMINATION: Vital Signs: Temperature is 98.6 degrees, pulse 71, respirations 14, blood pressure is 124/58. General: This is a chronically ill-appearing, elderly female. She is in no acute distress. Head/eyes/ears/nose/throat: She can hear my spoken words and see near objects. She is missing many of her teeth and she has poor oral hygiene. Neck: No pain with movement of the neck. The patient now has a right internal jugular venous catheter in place. The site is not erythematous or purulent. Lungs: Clear to auscultation. Cardiovascular: Heart rate is regular. I did not hear premature beats today. Abdomen: Soft and nontender. Neurologic: The patient is awake. She did move her extremities to request. She also did talk some today. LAB AND X-RAY: CBC shows a white count of 10,460, hemoglobin 9, platelet count 160,000. Creatinine is 1.4. GFR is 37. Blood and urine cultures are growing gram-negative rods. Repeat blood cultures are pending. The patient's canned CT scan showed possible cholecystitis, and also a renal cyst versus hydronephrosis. ASSESSMENT AND PLAN: My plan is to continue cefepime for the gram-negative ruby bacteremia and urinary tract infection. Dr. Goddard is seeing the patient for possible cholecystitis, and Dr. Ulloa is seeing the patient about whether the patient's ultrasound shows renal cyst or hydronephrosis. COMORBIDITIES: The patient is elderly, she has dementia. cc: Dae Marcelino MD
[2019-08-28] MEDS: CULTURELLE PO SCH ×2 (09:34→10:19)
[2019-08-28] MEDS: FOLIC ACID PO SCH (10:19)
[2019-08-28] MEDS: VITAMIN D PO SCH (10:19)
[2019-08-28] MEDS: WELLBUTRIN XL PO SCH (10:19)
[2019-08-28] MEDS: ZYPREXA PO SCH ×2 (10:20→21:03)
--- NOTE | 2019-08-28 11:00 | INFECTIOUS DISEASE PROGRESS NO ---
DATE: 08/28/2019 The patient's gram-negative rods from the urine and blood have been identified as E coli. I have switched the patient from cefepime to Rocephin. cc: Dae Marcelino MD
[2019-08-28] MEDS ORDERED: VENOFER 200 MG in NS 150 ML IV ONE (11:37)
[2019-08-28] MEDS: ROCEPHIN 2 GM in NS 50 ML IV SCH ×2 (11:39→21:17)
[2019-08-28] MEDS ORDERED: LOVENOX 1 MG/KG SUBQ SCH (11:45)
[2019-08-28 12:24] LABS: FLOW CYTOMETERY SOURCE WHOLE BLOOD; LEUKEMIA LYMPHOMA BY FLOW REFERRED FOR TESTING
[2019-08-28] MEDS ORDERED: BENZOIN TINCTURE TOP ONE (13:46)
[2019-08-28] MEDS: LOVENOX SUBQ SCH ×2 (14:01→23:26)
[2019-08-28] MEDS ORDERED: COREG PO SCH (14:30)
--- NOTE | 2019-08-28 14:57 | PROGRESS NOTE ---
DATE: 08/28/2019 ADDENDUM: SUBJECTIVE: This morning Ms. Medrano refers to be doing a little better. She was still kind of apathic and less communicative. She did, however, say she was having some abdominal discomfort. OBJECTIVE: Vital signs: Blood pressure is 138/72, pulse of 80, respiration is 24, temperature 97.4 degrees. Patient is saturating 100% on room air. General: Ms. Medrano is a 69-year-old female. She is in bed. No distress. HEENT: Mucosa is pink and moist. Anicteric. Acyanotic. Neck: Supple. Chest: Clear to auscultation. A few rales in the posterior lung cristobal. Cardiovascular: Regular rate and rhythm. No murmurs. No rubs. No gallops. GI: Abdomen was soft. It is distended. There is a periumbilical hernia. There are also some distended veins on the anterior abdominal cavity. Extremities: No pedal edema. PATHOLOGY LAB TECHNICIAN: Ms. Medrano is kind of sleepy. She is very apathic. She will say a few words and then just go back to sleep. I do not think she is lethargic, however. LABORATORY DATA: Hemoglobin is up to 9.0, platelet count is 160,000. Potassium is 2.6, creatinine is 1.4, steady improvement. Lactic dehydrogenase is slightly elevated. C-reactive protein is also elevated. Sedimentation rate is remarkably elevated. ASSESSMENT: 1. Altered mental status on presentation, presumably due to sepsis induced encephalopathy with probably baseline dementia. 2. Portal vein thrombosis of unclear etiology. We will continue following up with the thrombophilic workup. Hematology/Oncology is on board. The patient has been started on therapeutic Lovenox. 3. Remote history of renal cell carcinoma status post right partial nephrectomy. 4. Enterocolitis of the distal small bowel and proximal colon. 5. Pancreatic atrophy on CT imaging associated with splenomegaly of unclear etiology. 6. Microcytic anemia with underlying iron deficiency. The patient has been transfused 2 PRBC. Hemoglobin and hematocrit are a lot better. We will have Ms. Medrano be evaluated by GI at a later date, when she is through with the current surgery. 7. Cholelithiasis with possible cholecystitis. The patient is scheduled for gallbladder removal tomorrow. 8. Acute kidney injury secondary to volume depletion. Creatinine is improving. 9. Hypokalemia. We will replace this. 10. E Coli UTI with Bacteremia Please refer to the details of the other part of the progress note written by the medical student. cc: Leo Cunningham MD MTDD
[2019-08-28] MEDS: CRESTOR PO SCH (21:03)
--- NOTE | 2019-08-28 21:13 | GENERAL SURGERY PROGRESS NOTE ---
DATE: 08/28/2019 SUBJECTIVE: The patient complains of abdominal pain with nausea. It is persistent. OBJECTIVE: Vital Signs: She is afebrile. Vital signs are stable. General: She is awake, but appears weak and apathetic. She gives few words; however, she does respond to questioning. CV: Regular rate and rhythm. Respiratory: No increased work of breathing. GI: Soft. Tender across the upper abdomen. No rebound or guarding. Hypoactive bowel sounds. LABORATORY: White blood cell count 10.4, hemoglobin 9, hematocrit 27, platelet count 160,000. Potassium 2.6, BUN 36, creatinine 1.4, glucose 7.8, total bilirubin 2.1, direct bilirubin 1.3, LDH 234, C-reactive protein 137. IMAGING: Abdominal ultrasound was obtained which shows numerous gallstones. ASSESSMENT AND PLAN: 69-year-old female with abdominal pain and nausea with multiple gallstones and imaging consistent with cholecystitis. She also has Escherichia coli bacteremia and Escherichia coli urinary tract infection. She has a history of renal cell carcinoma. There is portal vein thrombosis. There is acute kidney injury which is improving. At this point, her symptoms are multifactorial, but I do think she has cholecystitis. We are planning laparoscopic cholecystectomy tomorrow. I discussed the risks and benefits with her, including bleeding, infection, injury to surrounding organs such as bile duct or intestines, and other imponderables. She understands and agrees to proceed. cc: Ritesh Goddard MD
--- NOTE | 2019-08-28 21:34 | HEMO/ONC CONSULTATION ---
DATE: 08/28/2019 REQUESTED BY: Hospitalist service. REASON FOR CONSULTATION: Portal vein thrombus. HISTORY OF PRESENT ILLNESS: Ms. Medrano is a 69-year-old female who initially presented to the emergency department at [facility] complaining of worsening weakness as well as altered mental status. She was admitted to the hospital and workup revealed that she has complete thrombus of the portal venous system of unclear etiology. Patient is now admitted with bacteremia, believed to be related to urinary tract infection. She has a remote history of renal cell carcinoma with partial right nephrectomy. She has also had recurrent squamous cell of the skin, requiring radiation therapy back in 2017. Hypercoagulable workup has been initiated. She is on no blood thinners currently. She also has splenomegaly. We have been consulted due to her thrombus. PAST MEDICAL HISTORY: 1. Dementia. 2. Hypertension. 3. Dyslipidemia. 4. CVA. PAST SURGICAL HISTORY: 1. Hysterectomy. 2. Partial right nephrectomy. 3. Squamous cell skin cancer removals. SOCIAL HISTORY: Patient reports that she currently lives with her sister. She denies any smoking, alcohol, or illicit drug use. FAMILY HISTORY: Negative for any coronary artery disease or any clotting disorders. REVIEW OF SYSTEMS: As per the HPI. PHYSICAL EXAMINATION: Vital Signs: Temperature 97.4 degrees, heart rate 80 respirations 24, blood pressure 138/72, O2 saturation 100% on room air. General: This is a female who looks older than her stated age, lying in her hospital bed. There is no one at bedside. Head: Appears to be normocephalic, atraumatic. Eyes: Pupils equal, round, reactive. Ears, Nose, Throat, Neck, Mouth: She has poor dentition. Oral mucosa appears to be normal. Gross auditory acuity is intact. Cardiovascular: S1, S2 heard. There are no murmurs, gallops, rubs appreciated. Respiratory: Chest is clear. Gastrointestinal: Abdomen is soft. Normoactive bowel sounds noted. Musculoskeletal: No obvious bony abnormalities noted. Extremities: She has no edema. Neurologic: Patient is alert. Not oriented. She is able to answer yes and no questions. LABS AND STUDIES: CT of the abdomen and pelvis, done on 08/25/2019, shows probable cholecystitis, severe enterocolitis of the distal small bowel and proximal colon, parapelvic cyst of the left kidney, complete thrombus of the portal venous system, reason unclear, and splenomegaly. Hemoglobin on admission was 8.8 and dropped down to 6.7. Hemoglobin now is 9.0. White blood cell count 10.46, platelets 160,000. Iron studies reveal a total iron of 21, saturation percent of 13%, and ferritin of 242. Bilirubin 2.10. LDH 234. ASSESSMENT AND PLAN: 1. Complete thrombus of the portal venous system. I agree with hypercoagulable workup which has been initiated, but results are pending. In addition, we are going to do flow cytometry for paroxysmal nocturnal hemoglobinuria, specifically CD 55 and 59. Follow up on those results when they become available. We recommend starting the patient on anticoagulation. We are going to proceed with Lovenox at 1 mg/kg every 12 hours. Monitor hemoglobin closely. 2. Anemia. Patient had low levels at admission at 8.8. Her hemoglobin did drop by about 2 grams. Evaluate for bleed and we will check Hemoccult stool cards. She is found to be iron deficient. She is now status post 2 units of packed red blood cells, so will give her a little bit more additional iron via Venofer. Discussed with the patient. She is agreeable to proceed. Monitor hemoglobin closely while on blood thinners. 3. Bacteremia with urinary tract infection. Management per the primary team and Dr. Marcelino. Continue intravenous antibiotics. 4. Cholelithiasis with possible cholecystitis. She has been evaluated by Dr. Goddard. Further evaluation pending. She possibly may need to have her gallbladder removed. However, this has not been decided at this point. Will follow up. 5. Altered mental status. Believed to be secondary to sepsis. She has baseline dementia as well. 6. Acute renal failure. This is improving. Her creatinine is 1.4 today. Thank you for consulting us on Ms. Medrano. We will continue to follow along and adjust our treatment plan per hospital course. Dictated by EVERTON Wakefield for Gloria Huitron MD cc: Gloria Huitron MD
[2019-08-29] MEDS: NS 1,000 ML IV SCH (04:45)
[2019-08-29 05:22] LABS: BASO# 0.02 X1000 (0.0-0.2); BASO% 0.2 % (0.0-0.8); EOS# 0.03 X1000 (0.0-0.7); EOS% 0.3 % (0.0-10.0); HEMATOCRIT 26.2 % (37.0-47.0); HEMOGLOBIN 8.6 g/dL (12.0-16.0); IMM GRAN# 0.21 X1000 (0.0-0.04); LYMPH# 0.44 X1000 (1.2-3.4); LYMPH% 4.2 % (20.5-51.1); MCH 25.7 PG (27-31); MCHC 32.8 g/dL (33-37); MCV 78.4 FL (81-99); MONO# 0.75 X1000 (0.11-0.59); MONO% 7.1 % (1.7-9.3); MPV 10.9 FL (7.4-10.4); NEUT# 9.06 X1000 (1.4-6.5); NEUT% 86.2 % (42.2-75.2); PLT 188 X1000 (130-400); RBC 3.34 XMIL (4.2-5.4); RDW 18.7 % (11.5-14.5); WBC 10.51 X1000 (4.8-10.8)
[2019-08-29 05:40] LABS: ALB/GLOB RATIO 0.5; ALBUMIN 1.9 g/dL (3.5-5.0); CALCIUM 7.4 mg/dL (8.8-10.2); POTASSIUM 3.1 mmol/L (3.5-5.1); TOTAL BILIRUBIN 0.95 mg/dL (0.20-1.00); TOTAL PROTEIN 5.6 g/dL (6.3-8.3)
[2019-08-29 05:57] LABS: ANISOCYTOSIS 1+; HYPOCHROM 2+; LYMPHS 4 % (21-51); MONO 2 % (1-9); SEGS 94 % (42-75); TARGET CELLS OCCASIONAL
[2019-08-29] MEDS ORDERED: DIPRIVAN 1% ONE (07:13)
[2019-08-29] MEDS ORDERED: QUELICIN (DOSE) ONE (07:14)
[2019-08-29] MEDS ORDERED: XYLOCAINE-MPF 2% ONE (07:14)
[2019-08-29] MEDS ORDERED: FENTANYL ONE (07:15)
[2019-08-29] MEDS ORDERED: SODIUM CHLORIDE 0.9% ONE (07:36)
[2019-08-29] MEDS ORDERED: SENSORCAINE 0.5%-EPI 1:200,000 ONE (07:36)
[2019-08-29] MEDS ORDERED: LR 1,000 ML ONE (07:36)
[2019-08-29] MEDS ORDERED: ROBINUL ONE ×2 (07:50→09:26)
[2019-08-29] MEDS ORDERED: STERILE WATER INJ. ONE (07:52)
[2019-08-29] MEDS ORDERED: NORCURON ONE (07:52)
[2019-08-29] MEDS ORDERED: PEPCID ONE (08:07)
--- NOTE | 2019-08-29 08:21 | INFECTIOUS DISEASE PROGRESS NO ---
DATE: 08/29/2019 PRESENT ILLNESS: The patient has an Escherichia coli bacteremia and urinary tract infection. Dr. Ulloa saw the patient yesterday, and there is no factor that predisposed the bacteremia and urinary tract infection to occur. MEDICATIONS: I started the patient on Rocephin yesterday. This is the second day of treatment with antibiotics for the urinary tract infection and bacteremia. Day #1 is the first day that the patient has negative blood cultures. PHYSICAL EXAMINATION: Vital Signs: Temperature is 97.7 degrees, pulse 87, respirations 16, blood pressure 136/69. General: This is an ill-appearing, elderly female. She is in no acute distress. HEENT: She is able to talk today. She can hear my spoken words. She can see near objects. She unfortunately has very poor oral hygiene. Neck: No pain with movement. There is a right-sided internal jugular venous catheter in place. The site is not erythematous or tender. Lungs: Clear to auscultation. Cardiovascular: Heart rate is regular. Abdomen: Soft and nontender. Neurologic: The patient is awake. She did move her extremities to request. She also talked a little bit with me. LABORATORY DATA: CBC shows a white count of 10,510, hemoglobin 8.6, and platelet count 188,000. Creatinine is 1. GFR is 55. Liver function studies are normal, except for an alkaline phosphatase of 138. Both blood and urine grew Escherichia coli. ASSESSMENT AND PLAN: The patient has Escherichia coli urinary tract infection with an associated bacteremia. This is day 2 of antibiotics. I plan to treat her for a total of 14 days with Rocephin. COMORBIDITIES: She is elderly. She has dementia. cc: Dae Marcelino MD
[2019-08-29] MEDS ORDERED: DECADRON ONE (09:23)
[2019-08-29] MEDS ORDERED: NEOSTIGMINE ONE (09:26)
--- NOTE | 2019-08-29 09:42 | Diag Imaging Result Doc PS360 ---
OPERATIVE CHOLANGIOGRAM - 08/29/2019 INDICATION: CHOLECYSTECTOMY TECHNIQUE: The exam was performed by the patient's surgeon. Two images were obtained. COMPARISON: Ultrasound from 08/27/2019 FINDINGS: There are irregular filling defects in the mid and distal common bile duct. There is mild dilation of the common bile duct. There is however some passage of contrast into the duodenum. IMPRESSION: Filling defects in the mid and distal common bile duct concerning for choledocholithiasis. Electronically signed by Rick Maldonado 08/29/2019 9:40 AM
[2019-08-29] MEDS ORDERED: EPHEDRINE ONE (10:00)
[2019-08-29] MEDS ORDERED: OFIRMEV 1000 MG/ISOTONIC SOLN 1,000 MG/100 ML BOTTLE ONE (11:01)
[2019-08-29 11:09] LABS: URINE SOURCE CATH
[2019-08-29 11:10] LABS: BILIRUBIN URINE NEGATIVE (NEGATIVE); BLOOD URINE NEGATIVE (NEGATIVE); COLOR YELLOW; GLUCOSE URINE NEGATIVE (NEGATIVE); KETONE URINE NEGATIVE (NEGATIVE); LEUKOCYTES URINE NEGATIVE (NEGATIVE); NITRITE URINE NEGATIVE (NEGATIVE); PH URINE 5.5; PROTEIN URINE 30 mg/dL (NEGATIVE); SP GRAVITY URINE 1.018; TURBIDITY URINE CLEAR (CLEAR); UR EPITHELIAL CELLS <10 /HPF (<10); URINE BACTERIA NEGATIVE /HPF; URINE RBC <10 /HPF (<10); URINE WBC <10 /HPF (<10); UROBILINOGEN URINE NORMAL (NORMAL)
[2019-08-29] MEDS ORDERED: DILAUDID IV PRN (11:22)
--- NOTE | 2019-08-29 11:30 | Diag Imaging Result Doc PS360 ---
CHEST-PORTABLE - 08/29/2019 INDICATION: ET tube placement COMPARISON: 08/27/2019 FINDINGS: There is a new endotracheal tube in good position at about T3-T4. Stable right central line in good position. Lung volumes are critically low with some patchy bibasilar atelectasis. No definite infiltrates. IMPRESSION: No complication. Electronically signed by Rick Maldonado 08/29/2019 11:28 AM
[2019-08-29] MEDS: NEO-SYNEPHRINE 50 MG in NS 250 ML IV SCH (11:43)
[2019-08-29 11:52] LABS: BASO# 0.03 X1000 (0.0-0.2); BASO% 0.1 % (0.0-0.8); EOS# 0.03 X1000 (0.0-0.7); EOS% 0.1 % (0.0-10.0); HEMATOCRIT 24.2 % (37.0-47.0); HEMOGLOBIN 7.7 g/dL (12.0-16.0); IMM GRAN# 0.81 X1000 (0.0-0.04); IMM GRAN% 3.7 % (0.0-0.5); INR 1.82; LYMPH# 0.56 X1000 (1.2-3.4); LYMPH% 2.6 % (20.5-51.1); MCH 25.5 PG (27-31); MCHC 31.8 g/dL (33-37); MCV 80.1 FL (81-99); MONO# 0.81 X1000 (0.11-0.59); MONO% 3.7 % (1.7-9.3); MPV 10.4 FL (7.4-10.4); NEUT% 89.8 % (42.2-75.2); PLT 287 X1000 (130-400); PROTIME 21.5 Seconds (11.0-16.0); RBC 3.02 XMIL (4.2-5.4); RDW 18.8 % (11.5-14.5); WBC 21.74 X1000 (4.8-10.8)
[2019-08-29] MEDS: D5 1/2 NS + KCL 20 MEQ 1,000 ML IV SCH ×2 (11:58→21:52)
[2019-08-29] MEDS: MORPHINE IV PRN ×2 (12:01→15:04)
[2019-08-29 12:14] LABS: CALCIUM 7.2 mg/dL (8.8-10.2); CREATININE 1.1 mg/dL (0.5-0.9); POTASSIUM 3.3 mmol/L (3.5-5.1)
[2019-08-29] MEDS: CULTURELLE PO SCH (12:23)
[2019-08-29] MEDS: MIRALAX PO SCH (12:23)
[2019-08-29] MEDS: VITAMIN D PO SCH (12:23)
[2019-08-29] MEDS: FOLIC ACID PO SCH (12:23)
[2019-08-29] MEDS: ZYPREXA PO SCH ×2 (12:24→21:47)
[2019-08-29] MEDS: WELLBUTRIN XL PO SCH (12:24)
[2019-08-29] MEDS: SODIUM CHLORIDE 0.9% INJ SCH (12:28)
[2019-08-29] MEDS: PROTONIX IV SCH ×2 (12:28→23:24)
[2019-08-29 12:29] LABS: ANISOCYTOSIS 1+; LYMPHS 3 % (21-51); MICROCYTOSIS 1+; MONO 4 % (1-9); POLYCHROM 1+; SEGS 91 % (42-75)
--- NOTE | 2019-08-29 13:14 | OPERATIVE NOTE ---
PROCEDURE DATE: 08/29/2019 PREOPERATIVE DIAGNOSES: 1. Acute cholecystitis. 2. Urinary tract infection. 3. Escherichia coli bacteremia. 4. Portal vein thrombosis. POSTOPERATIVE DIAGNOSES: 1. Acute cholecystitis. 2. Urinary tract infection. 3. Escherichia coli bacteremia. 4. Portal vein thrombosis. PROCEDURE PERFORMED: Laparoscopic converted to open cholecystectomy with operative cholangiogram. SURGEON: Ritesh Goddard M.D. ANESTHESIA: General. ESTIMATED BLOOD LOSS: 400 mL. COMPLICATIONS: None apparent. SPECIMENS: Gallbladder. FINDINGS: The gallbladder was inflamed. The cystic duct was impacted full of small stones. The cholangiogram revealed some flow of contrast into the duodenum, but there appeared to be some filling defects in the common bile duct. There was also some faint contrast in the proximal hepatic duct. However, I could not clearly see both the right and left hepatic ducts. DRAINS: One #19 Alvarez. TECHNIQUE: The patient was brought to the operating room and placed supine on the table. General anesthesia was induced. She was prepped and draped in the usual sterile fashion. Then, 0.25% Marcaine with epinephrine was used to anesthetize our laparoscopic incisions. A 5 mm incision was made in the right upper quadrant. Entry into the peritoneal cavity was obtained under direct vision with the Optiview device. Pneumoperitoneum was established. The camera was inserted. There was no evidence of injury to underlying structures. She was placed in reverse Trendelenburg and left rotation. Under laparoscopic guidance, an 11 mm incision port was placed just below the umbilicus, a 5 mm incision port was placed in the epigastrium, and another one was placed in the right lateral abdomen. Through these, I was able to grasp the dome of the gallbladder. The gallbladder was very distended and inflamed. I went ahead and drained it with the needle and laparoscopic sucker. Prior to doing this, I should also point out that there was some bloody ascites, and we took a sample of this for cytology. I did not see any masses of the liver, omentum, transverse colon, stomach, or first portion of the duodenum. After the gallbladder was drained some, it allowed for better grasping and retraction. The dome of the gallbladder was grasped by a bulldog clamp, and lifted up superiorly. It became evident that to see the triangle of Calot area, we would need to retract the colon and duodenum away, and needed a fan retractor, so another 11 mm incision port was placed in the right lower quadrant. The fan was brought in, and retracted the structures away from the cystic duct/common duct confluence. I began dissecting at the triangle of Calot with a Maryland forceps, and also with a Kittner dissector, and the blunt end of the suction lathe setup operator. I was able to delineate the cystic artery entering the gallbladder, as well as the cystic duct. There were no other intervening ductal structures or arterial structures. I placed a clip on the gallbladder side of the cystic duct. A ductotomy was made proximal to this with scissors. A 14-gauge Angiocath was passed through the right upper quadrant. The Taut cholangiogram catheter was passed through this, into the cystic duct, and held in place with a clip. The cholangiogram was performed with the findings noted above. I removed the clip and catheter and Angiocath. I did place a clip on the proximal cystic duct stump, and divided it with scissors. There was some bleeding from the confluence of the liver, gallbladder, and cystic artery area. I had a hard time visualizing where exactly it was coming from, and I decided to open, so a right upper quadrant incision was made through the skin with a knife, then the subcutaneous tissue and fascia with cautery, and entered the peritoneal cavity safely. An upper hand retractor was used for better visualization. I began taking the gallbladder down from the liver in a dome down or top-down fashion with cautery, and isolated the cystic artery. I clipped it proximally and distally. I also placed a 3-0 silk tie around the proximal cystic artery, and divided in between with Metzenbaum scissors. The gallbladder was passed off the field. There was some bleeding from the liver bed, which we controlled with cautery. We then irrigated copiously with saline, and suctioned all of this out. I should point out that while we were doing the cholangiogram or even prior to the cholangiogram, while we were dissecting out the cystic duct, quite a few black stones and cloudy bile did spill out into the right upper quadrant in Morison's pouch, but I irrigated this area out well, and did not see any remaining stones. Once I was satisfied that we had cleaned out this area well and there was no further bleeding, I decided to place a Alvarez drain through a separate stab incision in the right abdomen. It was positioned next to our clips and tie in Morison's pouch. It was anchored to the skin with nylon suture. I removed all the ports. I closed the posterior fascia and peritoneum with a running #1 Vicryl. The anterior fascia was closed with a running #1 Maxon. The umbilical fascia was closed with a [id number] 0 Vicryl. The skin was closed with skin clips. There were no apparent complications. She was awakened in fair condition, and transferred to the recovery room. cc: Ritesh Goddard MD
--- NOTE | 2019-08-29 13:39 | GASTROENTEROLOGY CONSULTATION ---
DATE: 08/29/2019 REASON FOR CONSULTATION: ERCP HISTORY OF PRESENT ILLNESS: Ms. Medrano is a 69-year-old female lying in bed. Respiratory team extubated the patient and is now on 2 L nasal cannula. Patient just came back from her surgery, it was supposed to be a laparoscopic cholecystectomy but the surgery team performed an open cholecystomy with intraoperative cholangiogram. Intraoperative cholangiogram impression indicated filling defect in the mid and distal common bile duct concerning for choledocholithiasis. Patient was admitted to the hospital on 08/25/2019 with weakness, dehydration, and elevated creatinine levels. Renal U/s on 08/26 showed left parapelvic cyst. Abdomen/pelvis CT on 08/27 showed Probable cholecystitis. Numerous small stones in the gallbladder, Severe enterocolitis of the distal small bowel and proximal colon, No hydronephrosis. Parapelvic cysts of the left kidney, Complete thrombosis of the portal venous system and Splenomegaly. Abdominal U/s on 08/27 showed cholelithiasis and fatty infiltration of the liver. PAST MEDICAL HISTORY: Altered mental status, dementia, hypertension, hyperlipidemia, CVA, portal vein thrombosis, pancreatic atrophy, UTI, history of renal cell carcinoma, and history of squamous cell carcinoma. PAST SURGICAL HISTORY: Hysterectomy, partial right nephrectomy, squamous cell skin cancer removed. SOCIAL HISTORY: Patient lives with a sister. FAMILY HISTORY: No significant GI malignancies. ALLERGIES: Penicillin. HOME MEDICATIONS: Folic acid 1 mg daily, Crestor 20 mg at bedtime, olanzapine 5 mg twice a day, lisinopril 10 mg daily, aspirin 81 mg daily, bupropion HCL 150 mg daily, Linzess 145 mcg daily, vitamin D3 5000 units daily, and Culturelle 1 capsule daily. REVIEW OF SYSTEMS: As per HPI. Unable to assess as the patient was just extubated. PHYSICAL EXAMINATION: Vital Signs: Temperature 97.7 degrees, pulse of 87, respirations 16, blood pressure is 136/69, oxygen saturation is 98%. She is on 2 L nasal cannula. The patient's weight is 160 pounds with BMI 26.6 kg/m2. General: Patient was just extubated and she is on nasal cannula 2 liters. Still not alert, oriented. The patient was giving a blank stare. HEENT: Pale conjunctivae. No icterus. PERRL. Neck: Supple. Lungs: Clear to auscultation. Cardiovascular: Regular rate and rhythm. No murmurs, rubs, or gallops heard on auscultation. Abdomen: Protuberant, tender, distended. She just had an open cholecystectomy. Dressing on the abdomen sterile, dry, intact and SALVATORE drain with bloody fluid. Extremities: No clubbing, cyanosis. Generalized edema in the lower and upper extremities. Neurologic: Unable to assess patient. Patient was just giving a blank stare. Cranial nerves II to XII grossly intact. LABS: WBC 21.74, RBCs 3.02, hemoglobin is 7.7, hematocrit is 24.2, patelet count is 287,000. Her PT is 16.7, INR is 1.33. Sodium 138, potassium is 3.3, chloride is 111, carbon dioxide is 17, anion gap is 10. BUN is 19, creatinine 1.1, glucose 106, calcium is 7.2. Her total bilirubin is 0.94, AST is 19, ALT is 23, alkaline phosphatase is 138. Urinalysis showed trace protein. Her PAULO screen with Reflex AG's was negative. Phospholipid IgM/IgG Ab - Ab IgM,S <9.4 and Ab IgG,S <9.4. IMPRESSION AND PLAN: 1. Choledocholithiasis 2. Portal Vein Thrombosis 3. Pancreatic atrophy 4. E-Coli UTI with bacteremia 5. AMS 6. Dementia 7. Hypertension 8. Hyperlipidemia 9. Hx of renal cell carcinoma 10.Hx of Squamous cell carcinoma 11.Fatty liver disease 12.Anemia PLAN: The patient just had an open cholecystectomy with operative cholangiogram. We will watch her liver enzymes and if it goes up, we will plan to do an ERCP. Patient has portal vein thrombosis awaiting the results of hypercoagulable workup. Her H & H is 7.7 and 24.2, she has received 3 units of blood so far per PCP. We started the patient on Protonix 40 mg IV twice a day as GI prophylaxis. The patient is also on Culturelle, and MiraLAX daily for her bowel regimen. She is receiving Rocephin antibiotics for urinary tract infection. We will continue to monitor patient's CBC, CMP, PT and INR , follow the plan of care per primary care provider, the surgeon, infectious disease team and the oncology team. This plan was discussed with Dr. Houston. Thank you for your consult. Please call us for any further questions or concerns. Dictated by LUIS Perales for Jose Houston MD cc: Jose Houston MD I have seen and examined the patient myself and I agree with the above plan of care. The above plan was discussed with the patient's RN and with Dr Goddard and all questions were answered. Please call us with any further questions. MONIK
--- NOTE | 2019-08-29 15:01 | PROGRESS NOTE ---
DATE: 08/29/2019 ADDENDUM: SUBJECTIVE: Ms. Medrano just came from surgery, initially intended to be a laparoscopic, but that was converted to open cholecystectomy with intraoperative cholangiogram. It appears that there was some filling defect in the CBD on the cholangiogram. OBJECTIVE: Current vital signs: Blood pressure is 118/73, pulse of 87, respiration is 12, temperature is 98 degrees. She does have a recent surgery incision on the right upper quadrant which is covered with a sterile dressing. There is a SALVATORE drain in place which has almost about 3/4 of it with bloody stained fluid LABORATORY DATA: I have also reviewed her Laboratory data. Early on this morning, her WBC was 10.51. This has jumped to 21.74 which I think is partly reactive. Hemoglobin has gone down to 7.7, platelet count is 287,000. There is 91% of neutrophils. Her chemistry has not really changed much. Her creatinine is down to 1.0 from 1.4 yesterday, it was 1.0 early this morning. A repeat blood culture was negative. The urine and the blood culture from before on admission showed an E coli. So far, the PAULO and antiphospholipids have all been unremarkable. ASSESSMENT: 1. Altered mental status on presentation, presumably secondary to sepsis-induced encephalopathy with baseline dementia. Mentation seems to be fairly stable. 2. Portal vein thrombosis of unclear etiology. We will still continue with the diagnostic workup. Heme-Onc has been on board. 3. Remote history of renal cell carcinoma. 4. Escherichia coli urinary tract infection with bacteremia. Subsequent blood cultures have been negative. Patient is currently on ceftriaxone. 5. Cholelithiasis with cholecystitis. The patient is status post laparoscopic, converted to open cholecystectomy with intraoperative cholangiogram. The intraoperative cholangiogram report seems to suggest that the common bile duct has a filling defect, so I have consulted Gastroenterology for possible ERCP. 6. Enterocolitis of the distal small-bowel and proximal colon on the CT scan. 7. Pancreatic atrophy associated with splenomegaly of unclear etiology. 8. Microcytic anemia with iron deficiency. Patient is status post 2 PRBC. She is also getting another transfusion today after the surgery. 9. Remote history of renal cell carcinoma status post right partial nephrectomy. PLAN: In general, Ms. Medrano is back from surgery. She remained quite hypotensive throughout most of the surgery and she was started on Parth-Synephrine. White cell count has actually gone higher. She is currently hemodynamically stable and she is responding well. We are going continue with the current antimicrobial. We will also be pending the other laboratory work that is pending. Please refer to the details of the progress note that has been written up by the medical student. cc: Leo Cunningham MD
[2019-08-29] MEDS: CRESTOR PO SCH (21:47)
[2019-08-29] MEDS: ROCEPHIN 2 GM in NS 50 ML IV SCH (21:52)
[2019-08-30] MEDS: MORPHINE IV PRN ×3 (03:24→10:07)
[2019-08-30 05:58] LABS: BASO# 0.01 X1000 (0.0-0.2); BASO% 0.1 % (0.0-0.8); HEMATOCRIT 24.7 % (37.0-47.0); HEMOGLOBIN 8.2 g/dL (12.0-16.0); IMM GRAN# 0.21 X1000 (0.0-0.04); IMM GRAN% 1.2 % (0.0-0.5); LYMPH# 0.85 X1000 (1.2-3.4); LYMPH% 4.8 % (20.5-51.1); MCH 26.8 PG (27-31); MCHC 33.2 g/dL (33-37); MCV 80.7 FL (81-99); MONO# 1.11 X1000 (0.11-0.59); MONO% 6.2 % (1.7-9.3); MPV 9.9 FL (7.4-10.4); NEUT# 15.62 X1000 (1.4-6.5); NEUT% 87.7 % (42.2-75.2); PLT 281 X1000 (130-400); RBC 3.06 XMIL (4.2-5.4); RDW 18.7 % (11.5-14.5)
[2019-08-30 06:47] LABS: ALB/GLOB RATIO 0.5; ALBUMIN 1.6 g/dL (3.5-5.0); CALCIUM 7.9 mg/dL (8.8-10.2); CREATININE 1.1 mg/dL (0.5-0.9); POTASSIUM 3.8 mmol/L (3.5-5.1); TOTAL BILIRUBIN 0.78 mg/dL (0.20-1.00); TOTAL PROTEIN 5.1 g/dL (6.3-8.3)
[2019-08-30] MEDS: CULTURELLE PO SCH (09:23)
[2019-08-30] MEDS: WELLBUTRIN XL PO SCH (09:23)
[2019-08-30] MEDS: ZYPREXA PO SCH ×2 (09:23→20:55)
[2019-08-30] MEDS: FOLIC ACID PO SCH (09:23)
[2019-08-30] MEDS: VITAMIN D PO SCH (09:23)
[2019-08-30] MEDS: MIRALAX PO SCH (09:24)
--- NOTE | 2019-08-30 09:39 | INFECTIOUS DISEASE PROGRESS NO ---
DATE: 08/30/2019 PRESENT ILLNESS: The patient has an E. coli bacteremia and urinary tract infection. Also, she is status post cholecystectomy for acute cholecystitis with common bile duct stones in place. MEDICATION: The patient is on Rocephin. PHYSICAL EXAMINATION: Vital Signs: Temperature is 98 degrees, pulse 93, respirations 13, blood pressure 104/62. General: This is an ill-appearing elderly female. She is in no acute distress. Head/eyes/ears/nose/throat: She can hear my spoken words and see near objects. She has very poor oral hygiene. Neck: The patient has an internal jugular venous catheter in place. The site is not erythematous or purulent. Lungs: Clear to auscultation. Cardiovascular: Regular heart rate. Abdomen: Tender in the right upper quadrant. The patient has an incision in the right upper quadrant. The incision is covered with a dressing. The dressing is intact. There also is a drain in place. Neurologic: The patient is awake. She does not seem to be in any acute distress. There is no tremor. LAB AND X-RAY: Chest x-ray shows bibasilar atelectasis. [place] [address], hemoglobin 8.2, platelet count 281,000. Creatinine is 1.1. GFR is 49. The patient's blood and urine grew E. coli. The repeat blood cultures drawn on the 27 of August are negative therefore for the patient this will be day 2 of antibiotic treatment with day 1 being the first day that the patient's repeat blood cultures were sterile. This is day 2 of treatment with the antibiotics, the current one is Rocephin. ASSESSMENT AND PLAN: The patient has a E. coli urinary tract infection and bacteremia. I plan on treating the patient with Rocephin for 14 days. COMORBIDITIES: The patient is elderly. She also has dementia. cc: Dae Marcelino MD MTDD
--- NOTE | 2019-08-30 11:47 | PROGRESS NOTE ---
DATE: 08/30/2019 SUBJECTIVE: This morning, Ms. Medrano refers to be doing fairly okay. Still has some abdominal pain. She remains slightly hypotensive with a systolic blood pressure of 92/58 this morning. OBJECTIVELY: Vital signs: Current blood pressure 92/58, pulse of 88, respiration is 14, temperature is 97.5 degrees. General: Ms. Medrano is a 69-year-old female. She is in bed. She is not in any cardiopulmonary distress. HEENT: Mucosa is pink. Anicteric. Acyanotic. Neck: Supple. Chest: Good air entry bilateral. No crepitations. No rhonchi. Cardiovascular: Regular rate and rhythm. Gastrointestinal: Abdomen is soft, is minimally distended. There is a dressing over the right upper quadrant surgical incision. There is also a SALVATORE drain in place. Extremities: No pedal edema. Central nervous system: The patient is a very apathic, but she says she was doing well. She seems a little bit more engaging today than days before. LABORATORY DATA: WBC is down to 17.80, hemoglobin is 8.2, platelet count of 281,000. Chemistry is also reviewed. Potassium is 3.3, chloride is 111, bicarb is 118, creatinine is 1.1. Protein electrophoresis was unremarkable for any monoclonal spike. The lupus anticoagulant seems to be positive. The protein-C level is also remarkably low. Protein S and antithrombin are normal. ASSESSMENT: 1. Altered mental status on presentation secondary to acute encephalopathy on baseline dementia, improved. 2. Portal vein thrombosis of unclear etiology. So far, the thrombophilic workup seems to suggest low protein C level, which is sometimes expected in the acute thrombosis. The patient also has abnormal lupus anticoagulant. She is currently on therapeutic Lovenox and Heme-Onc is on board. 3. Remote history of renal cell carcinoma. 4. Escherichia coli urinary tract infection with bacteremia. Subsequent blood cultures have been negative. The patient is currently on ceftriaxone. ID is on board. 5. Cholelithiasis with cholecystitis. The patient is status post laparoscopic converted to open cholecystectomy with intraoperative cholangiogram. Today is day 1 postop. 6. Suspected choledocholithiasis with filling defect on the intraoperative cholangiogram yesterday. GI has been consulted. The patient's AST is slightly elevated today. 7. Enterocolitis of the distal small bowel and proximal colon on CT scan. 8. Pancreatic atrophy associated with splenomegaly of unclear etiology. 9. Microcytic anemia with iron deficiency. The patient has had 3 PRBC transfusion. Hemoglobin and hematocrit is currently up to 8.2. 10. Persistent hypotension. The patient's white cell count is trending down. Blood culture is negative. It does not look like this is infectious-driven. I am going to check her cortisol level. I suspect she is probably adrenal insufficient. 11. Acute kidney injury. Creatinine is down to 1.1. The patient is making adequate urine. 12. Severe protein calorie malnutrition with serum albumin of 1.6. Dietitian is on board. cc: Leo Cunningham MD
[2019-08-30] MEDS: SODIUM CHLORIDE 0.9% INJ SCH (12:01)
[2019-08-30] MEDS: PROTONIX IV SCH ×2 (12:01→23:20)
[2019-08-30] MEDS ORDERED: SOLU-CORTEF IV ONE ×2 (12:24→12:27)
[2019-08-30] MEDS: D5 1/2 NS + KCL 20 MEQ 1,000 ML IV SCH (12:58)
[2019-08-30] MEDS: NORCO-7.5 PO PRN ×2 (13:04→21:44)
--- NOTE | 2019-08-30 13:45 | GASTROENTEROLOGY PROGRESS NOTE ---
DATE: 08/30/2019 SUBJECTIVE: Ms. Medrano is a 69-year-old female lying in bed. She complained of abdominal pain in the incision areas and nausea but denied any vomiting. She is on a clear liquid diet and as per nursing staff she did not have much of her liquids. OBJECTIVE: Vital signs: Temperature is 97.5, pulse is 88, respirations 14, blood pressure is 92/58, oxygen saturation is 98% on 2 L nasal cannula. The patient's weight is 181 pounds, BMI is 30.2 kg/m2. General: She is alert and oriented x2 and in no acute distress. HEENT: Pale conjunctivae. No icterus. PERRL. Neck: Supple. Lungs: Clear to auscultation in the anterior cristobal. Cardiovascular: Regular rate and rhythm. No murmurs, rubs, or gallops heard on auscultation. Abdomen: Protuberant and distended. She had open cholecystectomy done yesterday. Dressing on the abdomen is dry and intact. SALVATORE drain with serosanguineous fluid. Extremities: No clubbing. Generalized edema in the lower and upper extremities. Neurologic: Alert and oriented x2. LABORATORY: WBC 17.80, RBC is 8.6, hemoglobin is 8.2, hematocrit is 24.7, platelet count is 281,000. PT is 12.5, INR is 1.82. Sodium is 139, potassium is 3.8, chloride is 111, carbon dioxide 18, anion gap is 10, BUN is 20, creatinine is 1.1, total bilirubin is 0.7, AST is 77, ALT is 28, alkaline phosphatase is 116. Urinalysis on 08/29 showed urine protein of 30. IMPRESSION AND PLAN: Choledocholithiasis S/P Cholecystostomy Portal vein thrombosis Pancreatic atrophy E-coli UTI with bacteremia Hypertension Fatty liver disease Anemia PLAN: We will continue the current plan of care, GI prophylaxis Protonix 40 mg IV twice a day. Bowel regimen Miralax BID and Culturelle, folic acid and vitamin D. The patient is receiving folic acid, and vitamin D. She is on Rocephin antibiotic per Infectious Disease team. We will continue to watch her liver enzymes and if it goes up we will plan to do an ERCP. The patient has portal vein thrombus. We will watch her hypercoagulable workup. Hemoglobin and hematocrit today was 8.2 and 24.7, it has been slightly trended up. We will continue to monitor CBC, BMP, PT and INR and continue to follow the plan of care per PCP, Infectious Disease team, and the surgeon. This plan was discussed with Dr. Hernandez. Please call us for any further questions or concerns. Dictated by LUIS Perales for Vincent Hernandez MD Physician Attestation I have seen and examined the patient. I have discussed and reviewed the the note by Catherine SMITH and agree with findings and plan as documented. In brief, Ms. Chiara Medrano is a 69 year old woman who presented it AMS found to have probable acute cholecystitis from gallstones, severe enterocolitis with elevated inflammatory markers, and complete PVT with splenomegaly without known h/o cirrhosis, severe microcytic anemia s/p transfusion and TORO. She is POD#2 of open cholecystectomy with IOC that showed contrast entering into the duodenum but some filling defects in the CBD concerning for choledocholithiasis. She was started on pressors for septic +/- hypovolemic shock and is on CTX for E coli bacteremia and UTI. LFTs show minimally elevated AST and ALP, but no definite cholestatic pattern to suggest cholangitis or ongoing choledocholithiasis. Will continue to trend LFTs daily. If labs show worsening cholestatic pattern, do not improve with treatment of UTI, or she develops signs of cholangitis, then she will need diagnostic ERCP. Surgery is following; appreciate recommendations. Unclear etiology of colitis as patient has no known history of IBD or presentation of diarrhea. There was no signs of bowel ischemia or cirrhosis intraoperatively; however, some bloody ascites noted and cultured. Heme team is doing hypercoagulable workup for PVT and is on therapeutic lovenox. Will follow with you. Please call with questions. Will follow with you. MTDD
[2019-08-30] MEDS: NEO-SYNEPHRINE 50 MG in NS 250 ML IV SCH (14:51)
[2019-08-30] MEDS: LOVENOX SUBQ SCH (16:00)
[2019-08-30] MEDS ORDERED: NS 500 ML IV ONE (16:07)
[2019-08-30] MEDS ORDERED: SOLU-CORTEF IV SCH (20:00)
--- NOTE | 2019-08-30 20:02 | GENERAL SURGERY PROGRESS NOTE ---
DATE: 08/30/2019 SUBJECTIVE: She complains of some abdominal pain. She has been able to drink water without vomiting. OBJECTIVE: Vital Signs: She is afebrile. Pulse in the 90s. Respiratory rate 15, blood pressure 78/62, and O2 saturation 94%. Urine output was 670 mL yesterday, but I do not know how much has been recorded today. General: She is weak appearing, but in no acute distress. She is awake and alert. She follows commands. Cardiovascular: Regular rate and rhythm. Respiratory: No increased work of breathing. Gastrointestinal: Soft, appropriately tender. Incisional dressings are clean and dry. SALVATORE drain has serosanguineous fluid. No bile. LABORATORY: White blood cell count 17.8, hemoglobin 8.2, hematocrit 24.7, platelet count 281,000. Electrolytes reviewed and showed a BUN of 20, creatinine 1.1, sodium 139. ASSESSMENT AND PLAN: A 69-year-old female, status post open cholecystectomy. She remains quite ill with episodes of hypotension, which may be due to sepsis versus hypovolemia. We will go ahead and give her a fluid bolus and see how she responds and continue her broad-spectrum antibiotics. cc: Ritesh Goddard MD
[2019-08-30] MEDS: CRESTOR PO SCH (20:54)
[2019-08-30] MEDS: SOLU-CORTEF IV SCH (20:55)
[2019-08-30] MEDS: ROCEPHIN 2 GM in NS 50 ML IV SCH (20:56)
[2019-08-31] MEDS: D5 1/2 NS + KCL 20 MEQ 1,000 ML IV SCH ×3 (00:17→23:18)
[2019-08-31] MEDS: LOVENOX SUBQ SCH ×2 (03:08→14:48)
[2019-08-31] MEDS: SOLU-CORTEF IV SCH ×3 (04:09→20:31)
[2019-08-31 06:09] LABS: BASO# 0.01 X1000 (0.0-0.2); HEMATOCRIT 22.7 % (37.0-47.0); HEMOGLOBIN 7.4 g/dL (12.0-16.0); IMM GRAN# 0.21 X1000 (0.0-0.04); LYMPH# 0.62 X1000 (1.2-3.4); LYMPH% 3.1 % (20.5-51.1); MCH 27.2 PG (27-31); MCHC 32.6 g/dL (33-37); MCV 83.5 FL (81-99); MONO# 0.72 X1000 (0.11-0.59); MONO% 3.6 % (1.7-9.3); MPV 9.9 FL (7.4-10.4); NEUT# 18.67 X1000 (1.4-6.5); NEUT% 92.3 % (42.2-75.2); PLT 320 X1000 (130-400); RBC 2.72 XMIL (4.2-5.4); RDW 19.9 % (11.5-14.5); WBC 20.23 X1000 (4.8-10.8)
[2019-08-31 06:14] LABS: ALBUMIN 1.5 g/dL (3.5-5.0); CALCIUM 7.4 mg/dL (8.8-10.2); CREATININE 1.5 mg/dL (0.5-0.9); MAGNESIUM 1.4 mg/dL (1.5-2.7); PHOSPHORUS 3.3 mg/dL (2.7-4.5); POTASSIUM 4.4 mmol/L (3.5-5.1)
[2019-08-31 06:50] LABS: LYMPHS 2 % (21-51); MONO 6 % (1-9); SEGS 92 % (42-75)
[2019-08-31] MEDS: VITAMIN D PO SCH (08:25)
[2019-08-31] MEDS: CULTURELLE PO SCH (08:25)
[2019-08-31] MEDS: ZYPREXA PO SCH ×2 (08:25→20:31)
[2019-08-31] MEDS: NORCO-7.5 PO PRN (08:25)
[2019-08-31] MEDS: WELLBUTRIN XL PO SCH (08:25)
[2019-08-31] MEDS: FOLIC ACID PO SCH (08:25)
[2019-08-31] MEDS: MIRALAX PO SCH (08:29)
[2019-08-31] MEDS ORDERED: MAGNESIUM SULFATE 4 GM/S.W.I. 4 GM/100 ML IVPB IV ONE (08:45)
[2019-08-31] MEDS: ALBUMIN 25% IV SCH (09:55)
[2019-08-31] MEDS ORDERED: DULCOLAX PR PRN (11:32)
[2019-08-31] MEDS: SODIUM CHLORIDE 0.9% INJ SCH (12:25)
[2019-08-31] MEDS: PROTONIX IV SCH ×2 (12:25→23:18)
--- NOTE | 2019-08-31 12:41 | PROGRESS NOTE ---
DATE: 08/31/2019 SUBJECTIVE: This morning Ms. Medrano refers to be doing a little better, but still hurting in the abdomen. Per the nursing staff, Ms. Medrano did have a period of bradycardia last night; it seemed to be asymptomatic and sinus. OBJECTIVE: Vital signs: Blood pressure is 111/58, pulse of 65, respirations 13, temperature 98.3 degrees. General: Ms. Medrano is a 69-year-old female. She was in bed. She did not seem to be in any distress. HEENT: Mucosa is pink, slightly dry. Anicteric. Acyanotic. Neck: Supple. Chest: Air entry was bilaterally reduced. A few crackles in the posterior lung cristobal. Cardiovascular: Regular rate and rhythm. No murmurs, no rubs, no gallops. GI/Abdomen: Soft. Bowel sounds are present, but slightly hypoactive and minimally tender. There is a dressing over the right upper quadrant surgical incision. There is a SALVATORE drain in place. Extremities: Trace pedal edema. LANDING SIGNAL OFFICER: Patient is awake, alert, oriented. Follows basic commands. LABORATORY DATA: WBC is 20.23, hemoglobin is 7.4, platelet count of 230. Chemistry is also reviewed. Creatinine is 1.5, magnesium is 1.4. The patient's prealbumin is 3.3. ASSESSMENT: 1. Altered mental status on presentation presumably due to sepsis-induced encephalopathy on baseline dementia. 2. Portal vein thrombosis of unclear etiology. The patient is on full therapeutic dose of Lovenox. 3. Remote renal cell carcinoma. 4. Escherichia coli urinary tract infection with bacteremia. Subsequent blood cultures have been negative. Patient is on ceftriaxone. 5. Cholelithiasis with cholecystitis. The patient is status post laparoscopic converted to open cholecystectomy with intraoperative cholangiogram. Today is day 2 postoperatively. 6. Suspected choledocholithiasis with filling defect on the intraoperative cholangiogram. Gastroenterology is on board. 7. Enterocolitis of the distal small bowel and proximal colon on the CT scan. Gastroenterology is on board. 8. Pancreatic atrophy associated with splenomegaly of unclear etiology. 9. Microcytosis. 10. Persistent hypotension presumably combination of sepsis-induced dehydration and transient adrenal insufficiency. The patient is on hydrocortisone stress doses. Blood pressures are doing better. She is being weaned off on Parth-Synephrine. 11. Acute kidney injury. We will continue to trend the creatinine. It had gotten slightly better to 1.0, but this morning is up to 1.5. Urine output also seems to have picked up some. We are going to continue with the hydration. 12. Severe protein calorie malnutrition with prealbumin of 3.3. The patient has been evaluated by dietitian. We are going to continue with the supplements. I have also advance her to diet to a full liquid diet. PLAN: In general, I think Ms. Medrano seems to be doing slightly better. She has not had any bowel movement. We will add some bowel regimen. We are going to continue with the current antimicrobial coverage. She is on steroids for presumed transient adrenal insufficiency. We will continue to try and wean her off the phenylephrine today, and we have advanced her diet. Ms. Medrano will continue to be in the ICU for close monitoring. cc: Leo Cunningham MD
[2019-08-31 13:08] LABS: ALB/GLOB RATIO 0.9; ALBUMIN 2.6 g/dL (3.5-5.0); DIRECT BILIRUBIN 0.3 mg/dL (0.00-0.20); TOTAL BILIRUBIN 0.63 mg/dL (0.20-1.00); TOTAL PROTEIN 5.6 g/dL (6.3-8.3)
[2019-08-31] MEDS: MORPHINE IV PRN ×2 (13:46→17:27)
--- NOTE | 2019-08-31 15:42 | GENERAL SURGERY PROGRESS NOTE ---
DATE: 08/31/2019 SUBJECTIVE: Ms Medrano is 2 days after a cholecystectomy for acute cholecystitis. She was found to have multiple cystic duct stones. There was debris noted in her common duct. Today she says she does not feel particularly well. OBJECTIVE: Vital signs: She is afebrile, heart rate 65, blood pressure 106/54. Her intake is 3598, output 475. Drain is serous primarily. No bile was seen within her drain. [place]: [place] [address], hemoglobin 7.4, hematocrit 22, BUN 22, creatinine 1.5. Total bilirubin was 0.63, alkaline phosphatase 116. ASSESSMENT: Ms. Medrano is 2 days post cholecystectomy. She does not feel well. She is on a liquid diet but not taking much by mouth currently. PLAN: Recommend continued antibiotic therapy. I will not advance her diet subsequently. Recheck her labs tomorrow. cc: Solo Preciado MD
[2019-08-31] MEDS: ROCEPHIN 2 GM in NS 50 ML IV SCH (20:31)
[2019-08-31] MEDS: CRESTOR PO SCH (20:31)
[2019-09-01] MEDS: LOVENOX SUBQ SCH ×2 (03:03→16:00)
[2019-09-01] MEDS: SOLU-CORTEF IV SCH ×3 (04:28→20:54)
[2019-09-01 07:09] LABS: ALB/GLOB RATIO 0.7; ALBUMIN 2.1 g/dL (3.5-5.0); CALCIUM 7.8 mg/dL (8.8-10.2); CREATININE 1.1 mg/dL (0.5-0.9); MAGNESIUM 1.9 mg/dL (1.5-2.7); PHOSPHORUS 2.4 mg/dL (2.7-4.5); POTASSIUM 4.6 mmol/L (3.5-5.1); TOTAL BILIRUBIN 0.44 mg/dL (0.20-1.00); TOTAL PROTEIN 5.1 g/dL (6.3-8.3)
[2019-09-01] MEDS: VITAMIN D PO SCH (08:28)
[2019-09-01] MEDS: SODIUM BICARBONATE 8.4% 150 MEQ in D5W 1,000 ML IV SCH ×2 (08:28→20:52)
[2019-09-01] MEDS: FOLIC ACID PO SCH (08:28)
[2019-09-01] MEDS: CULTURELLE PO SCH (08:28)
[2019-09-01] MEDS: MIRALAX PO SCH (08:28)
[2019-09-01] MEDS: WELLBUTRIN XL PO SCH (08:28)
[2019-09-01] MEDS: NORCO-7.5 PO PRN ×2 (08:29→20:53)
[2019-09-01] MEDS: ALBUMIN 25% IV SCH (08:29)
[2019-09-01] MEDS: ZYPREXA PO SCH ×2 (08:29→20:54)
--- NOTE | 2019-09-01 08:49 | PROGRESS NOTE ---
DATE: 09/01/2019 SUBJECTIVE: This morning, Ms. Medrano refers to be doing a little better. She has been off the pressor since 2 p.m. yesterday. OBJECTIVE: Vital Signs: Blood pressure is 121/61, pulse of 61, respirations 19, temperature is 98.1 degrees, the patient is saturating 100%. General: This is a 72-year-old female. She is in bed. Not seemingly distressed. HEENT: Mucosa is pink and moist. Anicteric. Acyanotic. Neck: Supple. Chest: Good air entry bilaterally. A few crackles in the posterior lung cristobal. Cardiovascular: Regular rate and rhythm. Questionable 2/6 TR murmur. GI: Abdomen is soft. There is a sterile dressing over the right upper quadrant. SALVATORE drain is also in place. The drain has about 60 mL of serosanguineous fluid. Neurologic: The patient is awake, alert. Follows basic commands. No focal deficit. LABORATORY DATA: CBC is still pending at the time of the dictation. Chemistry shows that chloride is 109, bicarb is 15, creatinine is down to 1.1. So far, repeat blood cultures have been negative. ASSESSMENT: 1. Hypotension, presumably a combination of sepsis, adrenal insufficiency, and hypovolemia. This is all improved. The patient is now off pressor. 2. Escherichia coli urinary tract infection with bacteremia. Subsequent blood cultures have been negative. 3. Cholelithiasis with cholecystitis. The patient is status post laparoscopic converted to open cholecystectomy. Today is day 3. 4. Suspected choledocholithiasis with mild filling defect on the intraoperative cholangiogram. So far, the patient's liver enzymes are within normal range. Bilirubin is normal. Gastroenterology is on board. 5. Portal vein thrombosis of unclear etiology. The patient is on therapeutic Lovenox. Hematology/Oncology is on board. Thrombophilic workup shows protein-C level is low, and also abnormal lupus anticoagulant serology. 6. Acute kidney injury, improving. 7. Severe protein calorie malnutrition with prealbumin of 3.3. 8. Pancreatic atrophy associated with splenomegaly on CT scan, of unclear etiology. 9. Microcytosis with relative underlying iron deficiency. The patient is status post packed red blood cells transfusion. 10. Microcytic anemia. Hemoglobin and hematocrit are stable. In general, I think Ms. Medrano is doing a lot better, hemodynamically now stable. Blood pressure has normalized, and the patient is off pressor since yesterday in the afternoon. We have switched her fluids to bicarbonate containing because of hyperchloremia. Will continue to observe her chemistry for tomorrow. We are still pending her CBC this morning. Will continue with her current antimicrobial therapy and her full liquid diet. cc: Leo Cunningham MD
--- NOTE | 2019-09-01 09:03 | INFECTIOUS DISEASE PROGRESS NO ---
DATE: 09/01/2019 PRESENT ILLNESS: The patient has an Escherichia coli bacteremia originating from an Escherichia coli urinary tract infection. The patient also is status post cholecystectomy for acute cholecystitis with common bile duct stones in place. The patient also has a leukocytosis which I think could be due to the steroids the patient is on. MEDICATIONS: The patient is on Rocephin. This is day 3 of treatment, with day 1 being the first day that the patient's repeat blood cultures were sterile. PHYSICAL EXAMINATION: Vital Signs: Temperature is 98 degrees, pulse 61, respirations 19, blood pressure 121/61. General: This is an ill-appearing, elderly female. The patient is in no acute distress. HEENT: She can hear my spoken words. She can see near objects. She has poor oral hygiene. I did not notice any white patches in her mouth. Neck: The patient has a jugular vein catheter in place. The site is not swollen or red. Lungs: Clear to auscultation. Cardiovascular: Heart rate is regular. Abdomen: Soft, but tender in the upper part. The patient has a dressing over her incision. The dressing is intact. Neurologic: The patient is awake. She can move her extremities. There is no tremor. Integument: No rash noted. IMAGING AND LABORATORY DATA: There is no new radiographic study for today. The patient's CBC from yesterday is 20,230, hemoglobin 7.4, and platelet count 320,000. Creatinine is 1.1. GFR is 49. IgG and IgA are normal. ASSESSMENT AND PLAN: The patient has an Escherichia coli bacteremia originating from an Escherichia coli urinary tract infection. The patient also is status post cholecystectomy for acute cholecystitis with common bile duct stones in place. My plan is to continue Rocephin for a total of 14 days. She has had 3 days of Rocephin thus far. As mentioned above I think the patient's leukocytosis is due to his steroids. COMORBIDITIES: The patient is elderly and she has dementia. cc: MD MONIK Parada
[2019-09-01 09:22] LABS: HEMATOCRIT 22.9 % (37.0-47.0); HEMOGLOBIN 7.2 g/dL (12.0-16.0); IMM GRAN# 0.08 X1000 (0.0-0.04); IMM GRAN% 0.8 % (0.0-0.5); LYMPH# 0.35 X1000 (1.2-3.4); LYMPH% 3.3 % (20.5-51.1); MCH 26.6 PG (27-31); MCHC 31.4 g/dL (33-37); MCV 84.5 FL (81-99); MONO# 0.41 X1000 (0.11-0.59); MONO% 3.9 % (1.7-9.3); MPV 9.6 FL (7.4-10.4); NEUT# 9.66 X1000 (1.4-6.5); PLT 232 X1000 (130-400); RBC 2.71 XMIL (4.2-5.4)
[2019-09-01] MEDS: MORPHINE IV PRN (10:38)
--- NOTE | 2019-09-01 10:49 | GENERAL SURGERY PROGRESS NOTE ---
DATE: 09/01/2019 SUBJECTIVE: Ms. Medrano seems a bit better today. OBJECTIVE: Vital Signs: She is afebrile. Heart rate is 80. Blood pressure 104/59. She is tolerating the liquid. LABORATORY DATA: Her white count is down to 10,500. Hemoglobin 7.2, hematocrit 22.9. BUN 18, creatinine 1.1. PLAN: The plan will be to give her a soft diet and allow her to try that. She has only serous drainage from her drain. cc: Solo Preciado MD
[2019-09-01] MEDS: SODIUM CHLORIDE 0.9% INJ SCH (12:45)
[2019-09-01] MEDS: PROTONIX IV SCH ×2 (12:45→22:54)
[2019-09-01] MEDS: CRESTOR PO SCH (20:53)
[2019-09-01] MEDS: ROCEPHIN 2 GM in NS 50 ML IV SCH (20:54)
[2019-09-02] MEDS: LOVENOX SUBQ SCH ×2 (03:28→14:02)
[2019-09-02] MEDS: SOLU-CORTEF IV SCH ×2 (04:22→15:38)
[2019-09-02 06:24] LABS: HEMATOCRIT 20.8 % (37.0-47.0); HEMOGLOBIN 6.7 g/dL (12.0-16.0); MCH 27.5 PG (27-31); MCHC 32.2 g/dL (33-37); MCV 85.2 FL (81-99); MPV 9.8 FL (7.4-10.4); RBC 2.44 XMIL (4.2-5.4); RDW 22.1 % (11.5-14.5); WBC 7.11 X1000 (4.8-10.8)
[2019-09-02 06:55] LABS: ALBUMIN 2.5 g/dL (3.5-5.0); CALCIUM 7.8 mg/dL (8.8-10.2); CREATININE 1.1 mg/dL (0.5-0.9); PHOSPHORUS 2.3 mg/dL (2.7-4.5); POTASSIUM 4.8 mmol/L (3.5-5.1)
--- NOTE | 2019-09-02 07:52 | INFECTIOUS DISEASE PROGRESS NO ---
DATE: 09/02/2019 PRESENT ILLNESS: The patient has an Escherichia coli bacteremia originating from an Escherichia coli urinary tract infection. The patient also has undergone cholecystectomy for acute cholecystitis. The patient had a leukocytosis, but that has resolved. MEDICATIONS: This is day 4 of treatment with antibiotics with day 1 being the first day that the patient's repeat blood cultures were sterile. The patient currently is on Rocephin. PHYSICAL EXAMINATION: Vital Signs: Temperature is 97.7 degrees, pulse 57, respirations 16, blood pressure 124/69. General: This is an ill-appearing, obese, elderly female. She is in no acute distress. Head, eyes, Ears, Nose, and Throat: She can hear my spoken words and see near objects. She has poor oral hygiene. I do not see any white coating of her tongue. Neck: The patient has a right-sided jugular vein catheter in place. The site is not swollen or tender. Lungs: Clear to auscultation. Cardiovascular: Regular heart rate. Abdomen: Soft, but tender. The patient has a drain in place. The fluid is serosanguineous that is coming from the drain. The patient's incision has a dressing over. The dressing is intact. Neurologic: The patient is awake. She can move her extremities. She does not have a tremor. She is able to talk in a coherent fashion. Integument: No rash. LAB AND X-RAY: CBC shows a white count of 7110, hemoglobin 6.7, platelet count 232,000. Creatinine is 1.1, GFR is 49. Liver function studies are normal. There is no recent radiographic study. ASSESSMENT AND PLAN: The patient has an Escherichia coli bacteremia originating from an Escherichia coli urinary tract infection. I plan to continue with Rocephin for now. The patient has had now 6 days of antibiotics for the infections with day 1 being the first day that the blood cultures were negative. She will require 8 more days to complete a 14 day treatment course. The patient's leukocytosis has cleared. The patient seems to be getting over her cholecystectomy well. COMORBIDITIES: The patient is elderly and she has dementia. cc: Dae Marcelino MD
--- NOTE | 2019-09-02 08:24 | EKG Report ---
Test Performed on : 08/31/2019 05:38:41 AM Test Reason : BRADYCARDIA Blood Pressure : / mmHG Vent. Rate : 041 BPM Atrial Rate : 041 BPM P-R Int : 206 ms QRS Dur : 108 ms QT Int : 522 ms P-R-T Axes : 028 000 015 degrees QTc Int : 430 ms Marked sinus bradycardia. Abnormal ECG When compared with ECG of 31-AUG-2019 05:38, (Unconfirmed) No significant change was found Confirmed by Raúl Siu MD ([id number]) on 09/02/2019 9:00:06 AM
[2019-09-02] MEDS: MORPHINE IV PRN (09:12)
[2019-09-02] MEDS: VITAMIN D PO SCH (09:13)
[2019-09-02] MEDS: FOLIC ACID PO SCH (09:13)
[2019-09-02] MEDS: CULTURELLE PO SCH (09:14)
[2019-09-02] MEDS: WELLBUTRIN XL PO SCH (09:14)
[2019-09-02] MEDS: MIRALAX PO SCH (09:15)
[2019-09-02] MEDS: NORCO-7.5 PO PRN (09:15)
[2019-09-02] MEDS: ALBUMIN 25% IV SCH (09:20)
[2019-09-02] MEDS ORDERED: NS 500 ML ONE (10:15)
--- NOTE | 2019-09-02 10:18 | GENERAL SURGERY PROGRESS NOTE ---
DATE: 09/02/2019 SUBJECTIVE: The patient continues to complain of some abdominal pain. She is drinking some liquids and eating some food, but not very much. She is off pressors. OBJECTIVE: Vital Signs: Pulse 69, O2 saturation 100%, respiratory rate 18, blood pressure 127/74. SALVATORE drain output 585 mL and serosanguineous. No bile. She has had several bowel movement. General: She is awake and alert. No acute distress. Overall, appears weak and deconditioned. Gastrointestinal: Soft, nondistended, appropriately tender. Incisional dressings clean and dry. LABORATORY DATA: White cell count 7, hemoglobin 6.7, hematocrit 28.8, platelet count 232,000. Liver function tests normal as of yesterday. Electrolytes reviewed and unremarkable. ASSESSMENT AND PLAN: A 69-year-old female status post open cholecystectomy. Her liver function tests have normalized. I will plan to remove her drain this week. She is still having high output, which I think is postsurgical and related to anasarca and hypoalbuminemia. She appears to be third-spacing some. She has 2 units of packed red blood cells ordered, which I agree with. Physical Therapy has been consulted. We will follow along. cc: Ritesh Goddard MD
[2019-09-02 11:24] LABS: ALB/GLOB RATIO 0.8; ALBUMIN 2.3 g/dL (3.5-5.0); DIRECT BILIRUBIN 0.1 mg/dL (0.00-0.20); TOTAL BILIRUBIN 0.34 mg/dL (0.20-1.00); TOTAL PROTEIN 5.1 g/dL (6.3-8.3)
--- NOTE | 2019-09-02 11:29 | PROGRESS NOTE ---
DATE: 09/02/2019 SUBJECTIVE: This morning Ms. Medrano refers to be feeling the same. No changes. She denied any pain. OBJECTIVE: Vital signs: Blood pressure 126/67, respirations 20, pulse 67, and temperature 98.3 degrees. The patient is saturating 97% on 2 L. General: Ms. Medrano is a 69-year-old female. She is in bed in no distress. Mucosa is pink and moist. Anicteric. Acyanotic. Neck: Supple. Chest: Good air entry bilaterally. Few crackles in the posterior lung cristobal. Cardiovascular: Regular rate and rhythm. There is a 2/6 TR murmur. GI: Abdomen is soft. There is a sterile dressing over the right upper quadrant. There is a SALVATORE drain in place. BALLAST INSPECTOR: Patient is awake and alert. Follows basic commands. LABORATORY DATA: The patient's white cell count has normalized 7.1 and 1.1. Hemoglobin is 6.7 and platelet count of 232,000. Chemistry is also reviewed. Bicarb has normalized. The patient's phosphorus is still on the lower end. So far, patient's repeat blood cultures have been 5 days negative. ASSESSMENT: 1. Hypotension on presentation presumably a combination of sepsis, adrenal insufficiency and hypovolemia improved. Patient is off vasopressor for the past 48 hours. 2. E. coli UTI with bacteremia. Subsequent blood cultures have been negative. The patient is on Rocephin for a total of 14 days. 3. Cholelithiasis with cholecystitis. Patient is status post laparoscopic converted to open cholecystectomy. Today is day 4 postop. 4. Portal vein thrombosis of unclear etiology. Thrombophilic workup shows low protein C, and also abnormal lupus anticoagulant. The patient is currently on Lovenox and Heme-Onc is on board. 5. Acute kidney injury improved. 6. Severe protein calorie malnutrition with prealbumin of 3.3. We will continue with dietitian's recommendation. 7. Pancreatic atrophy associated with splenomegaly on CAT scan of unclear etiology. 8. Microcytic anemia with relative iron deficiency. The patient's hemoglobin and hematocrit dropped below 7 today, so she is getting 2 units of PRBC's. 9. History of dementia. 10. Generalized weakness and deconditioning. We have consulted Physical Therapy. PLAN: In general, I think Ms. Medrano is doing a lot better. She got admitted for the past 8 days initially because of weakness, altered mental status, and was found to be septic. Workup revealed cholelithiasis with acute cholecystitis, and also urinary tract infection E. Coli associated with bacteremia. She was hypotensive at some point, and needed pressors. These have all normalized. She is also found to be transudate adrenal insufficient and she was started on stress doses of steroids which we are weaning off. Ms. Medrano is now hemodynamically stable. She is day 4 post cholecystectomy. She is going to be transferred from the ICU to the surgical floor. We then will continue to encourage incentive spirometer and physical therapy. He is going to be sat up in a chair at least twice per day. We will continue with the current antimicrobial coverage as per ID recommendations. I think long-term disposition Ms. Medrano would eventually need to go to rehab. We have consulted social work for that, and I am pending to discuss this with the family. cc: Leo Cunningham MD
[2019-09-02] MEDS: ZYPREXA PO SCH ×2 (12:06→22:47)
[2019-09-02] MEDS: NEUTRA-PHOS PO SCH ×3 (12:08→22:47)
[2019-09-02] MEDS: PROTONIX IV SCH ×2 (12:08→22:48)
--- NOTE | 2019-09-02 15:03 | GASTROENTEROLOGY PROGRESS NOTE ---
DATE: 09/02/2019 SUBJECTIVE: Ms. Medrano is a 69-year-old, female lying in bed. She complained of abdominal pain in the incision area and has nausea but denied any vomiting. She is on a mechanical soft diet but said that she still does not have an appetite to eat her breakfast. OBJECTIVE: Vital Signs: Temperature 98.3, pulse is 67, respirations 20, blood pressure is 126/67, oxygen saturation of 98%. She is on 2 L nasal cannula. Her weight is 198 pounds. BMI is 33.0 kg/m2. General: She is alert, oriented x2, and in no acute distress. HEENT: Pale conjunctivae. No icterus. PERRL. Neck: Supple. Lungs: Clear to auscultation in the anterior cristobal. Cardiovascular: Regular rate and rhythm. No murmurs, rubs, or gallops heard on auscultation. Abdomen: Protuberant, distended. She had an open cholecystectomy. Dressing on the abdomen is dry and intact. SALVATORE drain draining serosanguineous fluid. Extremities: No clubbing. Generalized edema in the lower extremities and upper extremities. Neurological: Alert, oriented x2. Lab: WBCs 7.11, RBCs 2.44, hemoglobin is 6.7, hematocrit is 20.8, platelet count is 232,000. PTT is 21.5, INR is 1.82. Sodium is 137, potassium is 4.8, chloride is 107, carbon dioxide is 22, anion gap is 8, BUN 17, creatinine 1.5, glucose is 134, calcium is 7.8, phosphorus is 2.3. Total bilirubin is 0.44, AST is 28, ALT is 17, alkaline phosphatase 99. IMPRESSION: 1. Choledocholithiasis status post cholecystectomy. 2. Portal vein thrombosis. Hematology work up ongoing. 3. Pancreatic atrophy. 4. Escherichia coli urinary tract infection with bacteremia. 5. Hypertension. 6. Fatty liver disease. 7. Anemia. worsening PLAN: We will continue with the current plan of care. The patient is on Protonix 40 mg twice a day. She is on bowel regimen, MiraLAX daily and Culturelle. She is on Rocephin antibiotics for her UTI. We suggest that her anticoagulant dosage needs to be reduced if OK by nephrology nurse. Her H & H is 6.7 and 20.8, Patient may need blood transfusion, talked to her PCP. We will continue to monitor her liver function tests. Her liver functions yesterday were AST of 28, ALT of 17, alkaline phosphatase was 99, which has been trending downward. We will continue to follow the plan of care of PCP, infectious disease team, and the surgeon. This plan was discussed with Dr. Houston. Please call us for any further questions or concerns. Dictated by LUIS Perales for Jose Houston MD cc: Jose Houston MD I have seen and examined the patient myself and I agree with the above plan of care. Discussed the above with the patient and family and all questions were answered. Please call us with any further questions. Discussed with Dr Cunningham. MONIK
[2019-09-02 15:11] LABS: ALB/GLOB RATIO 1.4; ALBUMIN 3.3 g/dL (3.5-5.0); DIRECT BILIRUBIN 0.2 mg/dL (0.00-0.20); TOTAL BILIRUBIN 0.56 mg/dL (0.20-1.00); TOTAL PROTEIN 5.7 g/dL (6.3-8.3)
[2019-09-02] MEDS: ROCEPHIN 2 GM in NS 50 ML IV SCH (22:45)
[2019-09-02] MEDS: SODIUM CHLORIDE 0.9% INJ SCH (22:48)
[2019-09-02] MEDS: CRESTOR PO SCH (22:48)
[2019-09-03] MEDS: SOLU-CORTEF IV SCH ×2 (04:24→16:45)
[2019-09-03] MEDS: LOVENOX SUBQ SCH ×2 (04:25→14:05)
[2019-09-03 06:43] LABS: BASO# 0.01 X1000 (0.0-0.2); BASO% 0.2 % (0.0-0.8); HEMATOCRIT 30.9 % (37.0-47.0); HEMOGLOBIN 10.2 g/dL (12.0-16.0); IMM GRAN# 0.08 X1000 (0.0-0.04); IMM GRAN% 1.3 % (0.0-0.5); LYMPH# 0.56 X1000 (1.2-3.4); LYMPH% 8.8 % (20.5-51.1); MCH 27.9 PG (27-31); MCV 84.7 FL (81-99); MONO# 0.51 X1000 (0.11-0.59); MPV 9.8 FL (7.4-10.4); NEUT# 5.21 X1000 (1.4-6.5); NEUT% 81.7 % (42.2-75.2); PLT 200 X1000 (130-400); RBC 3.65 XMIL (4.2-5.4); RDW 20.5 % (11.5-14.5); WBC 6.37 X1000 (4.8-10.8)
[2019-09-03 07:22] LABS: ALB/GLOB RATIO 1.1; ALBUMIN 2.8 g/dL (3.5-5.0); CALCIUM 8.2 mg/dL (8.8-10.2); POTASSIUM 4.7 mmol/L (3.5-5.1); TOTAL BILIRUBIN 0.65 mg/dL (0.20-1.00); TOTAL PROTEIN 5.4 g/dL (6.3-8.3)
[2019-09-03] MEDS: MIRALAX PO SCH (09:34)
[2019-09-03] MEDS: VITAMIN D PO SCH (09:35)
[2019-09-03] MEDS: WELLBUTRIN XL PO SCH (09:35)
[2019-09-03] MEDS: CULTURELLE PO SCH (09:35)
[2019-09-03] MEDS: ZYPREXA PO SCH ×2 (09:36→22:37)
[2019-09-03] MEDS: FOLIC ACID PO SCH (09:36)
[2019-09-03] MEDS: NEUTRA-PHOS PO SCH ×4 (09:37→22:39)
[2019-09-03] MEDS: NORCO-7.5 PO PRN ×3 (09:45→22:44)
[2019-09-03] MEDS ORDERED: LASIX IV ONE (11:05)
--- NOTE | 2019-09-03 11:41 | PROGRESS NOTE ---
DATE: 09/03/2019 SUBJECTIVE: This morning, Ms. Medrano refers to be doing fairly okay. No new complaints. OBJECTIVE: Vital Signs: Blood pressure is 155/84, pulse of 73, respirations 28, temperature 97.9 degrees. General: Ms. Medrano is a 69-year-old female, in bed. She does not seem to be in any distress. HEENT: Mucosa is pink and moist. Anicteric. Acyanotic. Neck: Supple. Chest: Air entry is bilaterally reduced. There are a few crackles in the posterior lung cristobal. Cardiovascular: Regular rate and rhythm. There is a 2/6 TR murmur. GI: Abdomen is soft. There is a sterile dressing over the right upper quadrant incision. There is a SALVATORE drain also still in place. Extremities: About 2+ pedal edema. The patient also has edema on the upper thigh, in the lateral aspect of the abdominal wall. PLAYGROUND AIDE: The patient is awake, alert, and follows basic commands. LABORATORY DATA: Hemoglobin is up to 10.2. Chemistry is also reviewed. Creatinine is 1.0. ASSESSMENT: 1. Escherichia coli urinary tract infection with bacteremia. Subsequent blood cultures have been negative. The patient is on Rocephin. 2. Cholelithiasis with cholecystitis. The patient is status post laparoscopic converted to open cholecystectomy. Today is day 5. 3. Portal vein thrombosis of unclear etiology. The patient is on therapeutic anticoagulation. 4. Severe protein calorie malnutrition with prealbumin of 3.3. The patient is on diet supplementation. Dietitian is on board. 5. Pancreatic atrophy associated with splenomegaly on CT scan, of unclear etiology. Gastroenterology is on board. 6. Relative iron deficiency. 7. History of Alzheimer's dementia. 8. Generalized weakness and deconditioning. Physical Therapy is on board. 9. Hypotension during the hospital course, presumably a combination of sepsis, adrenal insufficiency, and hypovolemia, completely resolved. 10. Fluid overload. I think this is due to hypoalbuminemia and fluid resuscitation during the hypotension. Will give her a dose of Lasix to help enhance diuresis. 11. Remote history of squamous cell carcinoma of the scalp, and also a right renal cell carcinoma, status post right partial nephrectomy. In general, I think Ms. Medrano is doing fairly okay. She seems to be eating a little bit more. Will continue with the current antimicrobial coverage. Subsequent blood cultures have been negative. We are still pending some of the serology workup for the portal vein thrombosis. Gastroenterology, Hematology/Oncology, and Surgery are on board, and we appreciate their input. cc: Leo Cunningham MD
--- NOTE | 2019-09-03 11:50 | GASTROENTEROLOGY PROGRESS NOTE ---
DATE: 09/03/2019 SUBJECTIVE: Ms. Medrano 69 year old female was sitting in her bed, having her breakfast. She has denied any nausea, vomiting, but is complaining of abdominal pain at the incision area. She is able to tolerate her diet fairly well. OBJECTIVE: Vital Signs: Temperature is 97.9 degrees, pulse is 76, respirations 24, blood pressure is 155/84, oxygen saturation is 96% on 2 L nasal cannula. Her weight is 196 pounds. BMI is 32.6 kg/m2. General: She is alert, oriented x2, and in no acute distress. HEENT: Pale conjunctivae. No icterus. PERRL. Neck: Supple. Lungs: Clear to auscultation in the anterior cristobal. Cardiovascular: Regular rate and rhythm. Abdomen: Distended, tender. She had an open cholecystectomy. Dressing on the abdomen is dry and intact. SALVATORE drain is draining serosanguineous fluid. Extremities: No clubbing, cyanosis, Generalized edema in the lower extremities. Neurological: Alert, oriented x3. LABORATORY DATA: WBCs of 6.37, RBC is 3.65, hemoglobin is 10.2, hematocrit is 30.9, platelet count is 200,000. Her PTT is 21.5. INR is 1.82. Sodium is 135, potassium is 4.7, chloride is 104, carbon dioxide 18, anion gap is 13, BUN is 20, creatinine is 1.0, calcium is 8.2, AST is 25, ALT is 12, alkaline phosphatase is 93, albumin is 2.8. IMPRESSION AND PLAN: 1. Choledocholithiasis status post cholecystectomy. 2. Portal vein thrombosis. Hematology workup ongoing. 3. Pancreatic atrophy. 4. Escherichia coli urinary tract infection and bacteremia. 5. Hypertension. 6. Fatty liver disease. 7. Anemia. PLAN: We will continue with the current plan of care. The patient is on MiraLAX and Culturelle for her bowel regimen and Protonix twice a day. She is on antibiotic Rocephin for her urinary tract infection. Her liver function tests today was AST 25, ALT 12, alkaline phosphatase is 93. It has been trending downward. We will continue to monitor her liver function tests and also follow the plan of care per primary care provider and the surgeon. This plan was discussed with Dr. Hernandez. Please call us with any further questions or concerns. Dictated by LUIS Perales for Vincent Hernandez MD Physician Attestation I have seen and examined the patient. I have discussed and reviewed the the note by Catherine SMITH and agree with findings and plan as documented. In brief, Ms. Chiara Medrano is a 69 year old woman who presented with AMS found to have probable acute cholecystitis from gallstones, severe enterocolitis with elevated inflammatory markers, complete PVT with splenomegaly, severe microcytic anemia requiring transfusion, E coli bacteremia from UTI. GI consulted for choledocholithiasis seen on IOC. Her LFTs have normalized suggesting passed stone. WBC is WNL. +BM and flatus. No overt GI bleeding. On bowel regimen. She is having abdominal pain related to her surgery. On PPI BID. Follow-up in GI clinic upon discharge. Will sign off. Please call with questions. MTDD
--- NOTE | 2019-09-03 13:27 | INFECTIOUS DISEASE PROGRESS NO ---
DATE: 09/03/2019 PRESENT ILLNESS: The patient has an E coli bacteremia originating from an E coli urinary tract infection. She has undergone surgery for acute cholecystitis. Her leukocytosis has resolved. MEDICATIONS: This is day 5 of treatment with Rocephin for the bacteremia. Patient will require 9 more days of Rocephin to complete the 2 week treatment course for the bacteremia and urinary tract infection. PHYSICAL EXAMINATION: Vital Signs: Temperature is 98.2 degrees, pulse 84, respirations 22, blood pressure 145/80. General: This is an ill-appearing elderly female. She also is obese but she is in no acute distress. Head/eyes/ears/nose/throat: She can hear my spoken words and see near objects. She has poor oral hygiene. I did not see any white patches in her mouth. Neck: The patient has a IV catheter in the right neck. The site is not erythematous or draining. Lungs: Clear to auscultation. Cardiovascular: Regular heart rate. Abdomen: Soft but slightly tender to palpation. She is not as tender as she was a week ago. The patient has a drain in place. The rest of the patient's wounds have dressings on them. The dressings are intact. Neurologic: The patient is awake. She can move her extremities. She is able to talk. There is no rash. LAB AND X-RAY: There is no new radiographic study. CBC shows a white count of 6370, hemoglobin 10.2, and platelet count 200,000. Creatinine is 1. GFR is 55. Liver function studies are normal. ASSESSMENT AND PLAN: Patient has an Escherichia coli bacteremia originating from an Escherichia coli urinary tract infection. The patient has now had a total of 7 days of treatment with antibiotics the current one being Rocephin for the patient's Escherichia coli bacteremia and urinary tract infection. The patient will require another 7 days of treatment to complete the treatment course. COMORBIDITIES: The patient is elderly and she has dementia. cc: Dae Marcelino MD
[2019-09-03] MEDS: SODIUM CHLORIDE 0.9% INJ SCH ×2 (13:58→22:37)
[2019-09-03] MEDS: PROTONIX IV SCH ×2 (13:58→22:37)
--- NOTE | 2019-09-03 15:23 | HEMO/ONC PROGRESS NOTE ---
DATE: 09/03/2019 Ms. Medrano's JAK2 has come back as negative. Her flow for PNH is still pending. We believe that her portal venous thrombus is secondary to liver disease. She will need 3 months of anticoagulation. We will see the patient once she is discharged from the hospital. Dictated by EVERTON Wakefield for Gloria Huitron MD cc: Gloria Huitron MD
--- NOTE | 2019-09-03 19:07 | GENERAL SURGERY PROGRESS NOTE ---
DATE: 09/03/2019 SUBJECTIVE: She continues to complain of abdominal pain. It has not really changed any throughout her hospital course. She is eating some but not much. OBJECTIVE: Vital Signs: She is afebrile. Vital signs are stable. General: She is weak but in no acute distress. GI: Soft, tender in the right side around her incision and drain. In the SALVATORE drain there is serosanguineous but mostly serous drainage. No bile seen. LABORATORY: Reviewed and unremarkable. Liver function tests are normal. ASSESSMENT AND PLAN: A 69-year-old female status post open cholecystectomy, also with urinary tract infection. I will go ahead and remove the drain today, as I think it is contributing to her pain. cc: Ritesh Goddard MD
[2019-09-03] MEDS: CRESTOR PO SCH (22:38)
[2019-09-03] MEDS: ROCEPHIN 2 GM in NS 50 ML IV SCH (22:38)
[2019-09-04] MEDS: PROTONIX IV SCH ×2 (03:16→16:30)
[2019-09-04] MEDS: LOVENOX SUBQ SCH ×2 (04:05→16:31)
[2019-09-04] MEDS: SOLU-CORTEF IV SCH ×2 (04:05→16:30)
[2019-09-04 07:03] LABS: HEMATOCRIT 31.4 % (37.0-47.0); HEMOGLOBIN 10.5 g/dL (12.0-16.0); MCHC 33.4 g/dL (33-37); MCV 83.7 FL (81-99); MPV 9.6 FL (7.4-10.4); RBC 3.75 XMIL (4.2-5.4); RDW 20.6 % (11.5-14.5); WBC 7.15 X1000 (4.8-10.8)
[2019-09-04 07:31] LABS: ALBUMIN 2.7 g/dL (3.5-5.0); CALCIUM 7.6 mg/dL (8.8-10.2); PHOSPHORUS 3.5 mg/dL (2.7-4.5); POTASSIUM 3.7 mmol/L (3.5-5.1)
[2019-09-04] MEDS: MIRALAX PO SCH (09:51)
[2019-09-04] MEDS: VITAMIN D PO SCH (09:52)
[2019-09-04] MEDS: WELLBUTRIN XL PO SCH (09:52)
[2019-09-04] MEDS: ZYPREXA PO SCH ×2 (09:52→20:15)
[2019-09-04] MEDS: NEUTRA-PHOS PO SCH (09:52)
[2019-09-04] MEDS: CULTURELLE PO SCH (09:52)
[2019-09-04] MEDS: FOLIC ACID PO SCH (09:52)
[2019-09-04] MEDS ORDERED: LASIX IV ONE (10:28)
--- NOTE | 2019-09-04 14:55 | INFECTIOUS DISEASE PROGRESS NO ---
DATE: 09/04/2019 PRESENT ILLNESS: Ms. Medrano is being treated for an Escherichia coli urinary tract infection with an associated bacteremia. She is status post open cholecystectomy on this admission. MEDICATIONS: Based on her sterile blood cultures, today is day 8 of treatment for her bacteremia. She is receiving ceftriaxone 2 g IV daily. PHYSICAL EXAMINATION: Vital Signs: Temperature is 98.4 degrees, pulse rate 107. Respiratory rate 16, blood pressure 137/86. O2 saturation is 98% on 2 L nasal cannula. General: This is a chronically ill-appearing, elderly female. She is lying in bed, currently in mild distress due to abdominal pain. HEENT: Oral mucous membranes are pink and dry. Conjunctivae are pale. Neck: Supple. Trachea is midline. There is a right intrajugular central line in place with no edema, erythema, or drainage to the site. Respiratory: Lung sounds clear in the upper lobes. Diminished in the mid and bases. No work of breathing is noted. Cardiovascular: Heart rate and rhythm are regular and fast. Sinus tachycardia on the monitor. A systolic murmur and gallop were appreciated. Abdomen: Soft, obese, and tender to palpation. There is a dressing on the right where the previous drain had been which is weeping at this point, with serous drainage noted. There are also mid abdominal dressings, which are dry and intact. Bowel sounds are active. Neurologic: She is awake, alert, and oriented to person and place only. Generalized weakness noted. LABORATORY AND X-RAY: Today her white count is 7.15, hemoglobin 10.5, platelet count 200,000, creatinine is 1, GFR is 55. Her urine and blood both grew an Escherichia coli previously. No imaging reports today. ASSESSMENT AND PLAN: Ms. Medrano is being treated for an Escherichia coli urinary tract infection with an associated bacteremia. She has had 8 days of treatment with Rocephin and will require 6 more days to complete the 2 week treatment. These plans have been discussed with and recommended by Dr. Marcelino. COMORBIDITIES: For Ms. Medrano include that she is elderly with dementia and previous right nephrectomy. Dictated by LUIS Sosa for Dae Marcelino MD cc: Dae Marcelino MD [facility] SYSTEMDavid
[2019-09-04] MEDS: SODIUM CHLORIDE 0.9% INJ SCH (16:30)
--- NOTE | 2019-09-04 17:05 | PROGRESS NOTE ---
DATE: 09/04/2019 SUBJECTIVE: This morning Ms. Medrano refers to be doing the same. She always said she is not doing well and that she is not feeling well because she continues to be hurting in her abdomen. OBJECTIVE: Vital signs: Blood pressure is 137/86, pulse of 107, respirations 16, temperature 98.4 degrees. The patient is saturating 98% on 2 L. General: Ms. Medrano is a 69-year-old female she was in bed. She did not seems to be in any cardiopulmonary distress. HEENT: Mucosa was pink and moist. Anicteric. Acyanotic. Head is normocephalic. There is some scaly lesions on the scalp. Neck: Neck is supple. There is no jugular venous distention. Chest: Good air entry bilaterally. Few crackles in the posterior lung cristobal. Cardiovascular: Regular rate and rhythm. There is a 2/6 TR murmur. GI: Abdomen is soft, minimally distended but and mildly tender, especially in the lower abdomen. There was a sterile dressing over the right upper quadrant. The SALVATORE drain has been removed. Some edema on the lateral aspect of the abdominal wall. Extremities: About 2+ pedal edema. BELT LOOP [employer]KER: Patient was awake, alert, and oriented. LABORATORY DATA: WBC is 7.15, hemoglobin is 10.6, platelet count of 200,000. Chemistry is also reviewed. Creatinine is down to 1.0. IMAGING STUDIES: None for today. MEDICATIONS: Have also been reviewed. Patient continues to be on ceftriaxone 2 g every 24 hours. ASSESSMENT: 1. Escherichia coli urinary tract infection with bacteremia. Subsequent blood cultures have been negative. The patient is on Rocephin 2 g every 24 hours. Per ID documentation, they plan to treat the plan to treat this for a total of 14 days. She has 6 more days to go. 2. Cholelithiasis with cholecystitis. The patient is status post laparoscopic converted to open cholecystectomy. Today is day [address] Goddard is on board. 3. Altered mental status on presentation presumed to be due to global encephalopathy from infection with background dementia. Patient's mentation has significantly improved during the hospital course. 4. Portal vein thrombosis of unclear etiology. This was a diagnosis per CT scan. Thrombophilic workup has been done. Heme-Onc is on board. The patient is currently on therapeutic anticoagulation. 5. Severe protein calorie malnutrition with initial prealbumin of 3.3. Dietitian is on board. Ms Medrano is on nutritional supplements. 6. Pancreatic atrophy associated with splenomegaly on the CT scan. Etiology is unclear. Gastroenterology is on board. 7. History of Alzheimer's dementia. 8. Generalized weakness and deconditioning. Physical therapy is on board. 9. Hypotension during the hospital course, presumably due to combination of sepsis, transient adrenal insufficiency, and hypovolemic shock. All these have been improved. The patient did need pressor for some time, but she is completely off. 10. Fluid overload. We think this is a combination of hypoalbuminemia and fluid resuscitation during the shock. She is getting Lasix to help with the fluid management. 11. Remote history of squamous cell carcinoma of the scalp and right renal cell carcinoma status post right partial nephrectomy noted. PLAN: So in general Ms. Medrano got admitted to the hospital on 08/25/2019 mainly because of weakness and altered mental status. Today is day 10 of hospitalization. During the hospital course Ms Medrano has been found to be bacteremic, has UTI, which we think was causing her altered mentation. This has completely resolved. She was also found to have cholelithiasis with cholecystitis and underwent an initially planned laparoscopic but this was converted to open cholecystectomy. She became hypotensive after surgery and needed fluid resuscitation and vasopressor for a period of time. She is currently in the medical floor. She seems to be gradually getting better. She is been weaning off steroid. She is tolerating her enteral feeding. She was found to have some chronic liver disease, atrophy of the pancreas, splenomegaly and portal vein thrombosis on a CAT scan. Thrombophilic workup has been for most part unremarkable except for protein-C which is slightly low and also abnormal anticoagulant which Heme- Onc plans to repeat when patient is back to her baseline. GI is on board. DISPOSITION: Ms Medrano has obviously developed weakness and deconditioning associated with critical polyneuropathy and will surely need to go to a rehab to improve on her deficits. However, she is has declined and not wanting to go to rehab. She wants to go home. She gave me the number to call her sister Ms. Gibbs [phone]. I tried to reach out to Ms. Gibbs. Unfortunately a male voice responded to the phone and said Ms Gibbs went to the doctor and has been given some medication and she feels quite dizzy and she has been sleeping so she will try to reach out to us. We have also consulted palliative nurse to engage the family. cc: Leo Cunningham MD MTDD
[2019-09-04] MEDS: NORCO-7.5 PO PRN (20:14)
[2019-09-04] MEDS: ROCEPHIN 2 GM in NS 50 ML IV SCH (20:14)
[2019-09-04] MEDS: CRESTOR PO SCH (20:15)
--- NOTE | 2019-09-04 21:00 | GENERAL SURGERY PROGRESS NOTE ---
DATE: 09/04/2019 SUBJECTIVE: The patient continues to have the same right-sided abdominal pain. She is eating some, but not a lot. She did get up to a chair today. OBJECTIVE: Vital Signs: She is afebrile. Vital signs are stable. General: She is awake, alert, oriented x3, no acute distress. GI: Soft. Appropriately tender in the right side of the abdomen. Incisions were examined and are healing appropriately. LABORATORY: CBC and metabolic profile reviewed and unremarkable. ASSESSMENT AND PLAN: A 69-year-old female status post open cholecystectomy. She has chronic abdominal pain of unclear etiology at this point, although certainly some postoperative pain remains a part of this. I would encourage more activity and oral intake as tolerated. Nothing further to add at this point. cc: Ritesh Goddard MD
[2019-09-05] MEDS: LOVENOX SUBQ SCH ×2 (03:46→15:50)
[2019-09-05] MEDS: PROTONIX IV SCH ×3 (03:47→21:58)
[2019-09-05] MEDS: SOLU-CORTEF IV SCH (08:54)
[2019-09-05] MEDS: WELLBUTRIN XL PO SCH (08:54)
[2019-09-05] MEDS: MIRALAX PO SCH (08:54)
[2019-09-05] MEDS: VITAMIN D PO SCH (08:54)
[2019-09-05] MEDS: FOLIC ACID PO SCH (08:56)
[2019-09-05] MEDS: CULTURELLE PO SCH (08:56)
[2019-09-05] MEDS: ZYPREXA PO SCH ×2 (08:56→22:10)
--- NOTE | 2019-09-05 15:37 | INFECTIOUS DISEASE PROGRESS NO ---
DATE: 09/05/2019 PRESENT ILLNESS: The patient is being treated for an E. coli urinary tract infection with an associated bacteremia. She has also had an open cholecystectomy during this admission. MEDICATIONS: This is day 9 of treatment with Rocephin and other antibiotics prior to Rocephin. PHYSICAL EXAMINATION: Vital Signs: Temperature is 97.4 degrees, pulse 82, respirations 20, blood pressure 108/75. General: This is a chronically ill-appearing elderly female. She is in no acute distress. Head/eyes/ears/nose/throat: She can hear my spoken words and see near objects. She does have skin crusting on her forehead. Neck: No pain with movement. Lungs: Clear to auscultation. Cardiovascular: Heart rate is regular with a systolic murmur. Abdomen: Soft, but tender. The patient's incisions are not erythematous or draining. The patient's drain site is only draining a very small amount of a serous fluid. Neck: The patient has a right-sided jugular vein catheter in place. The site is not swollen or red. Neurologic: The patient is awake, she does answer questions and she does move her extremities to request. LAB AND X-RAY: There is no new lab or radiology report today. ASSESSMENT AND PLAN: The patient has an E. coli urinary tract infection with an associated bacteremia. The patient will need 5 more days of treatment with Rocephin to complete a total of 2 weeks of antibiotic therapy. COMORBIDITIES: The patient is elderly. She has had a previous right nephrectomy. She also has dementia. cc: Dae Marcelino MD
--- NOTE | 2019-09-05 20:45 | PROGRESS NOTE ---
DATE: 09/05/2019 SUBJECTIVE: As per the patient, she is feeling better. She is still complaining of abdominal pain, which is diffuse and of course she had a surgery done recently. She does have generalized weakness. We had a really large conversation about rehab center versus home, and at the end, she agreed to go to a rehab center. So, hopefully if tomorrow she is doing fine, I will send her to rehab. OBJECTIVE: Vital Signs: Temperature 98.4 degrees, pulse 90, respiratory rate 18, blood pressure 126/83, oxygen saturation 98 on 2 L of nasal cannula. HEENT: Head normocephalic, no trauma. She has some lesions on her scalp and they are old. It looks like scaly lesions. Neck: Supple no JVD, central trachea. Chest: Clear to auscultation. Some crepitus at the bases. Cardiovascular: Regular rhythm and rate. Systolic murmur. Abdomen: Soft. It is slightly distended, but she does have bowel sounds. She has a dressing on the right upper quadrant and she is complaining of generalized discomfort. She has some wall edema. Extremities: 2+ lower extremity edema. No clubbing. No cyanosis. Neurological: The patient is awake. She is alert. She is following commands. She is answering my questions. LABORATORY: No lab work done today. Laboratory from yesterday, sodium 140, potassium 3.7, chloride 103, bicarbonate 25, BUN 26, creatinine 1, glucose 116, calcium 7.6, phosphorus 3.5. ASSESSMENT AND PLAN: 1. Escherichia coli urinary tract infection with bacteremia. Subsequent blood cultures have been negative. The patient has been placed on Rocephin 2 g every 24 hours. Per infectious disease documentation, they are planning to treat this patient for 14 days, so it looks like she has 5 more days to go. 2. Cholelithiasis with cholecystitis status post laparoscopic converted to open cholecystectomy. Today is postoperative day #7. The surgery department/Dr. Goddard on board. 3. Altered mental status on presentation. Likely global encephalopathy due to infection and background of dementia, improved. 4. Portal vein thrombosis of unclear etiology diagnosed per CT scan. Thrombophilic workup has been done. Hematology/Oncology on board. Continue the same management. 5. Severe protein calorie malnutrition with initial pre-albumin of 3.3. Dietitian on board. 6. Pancreatic atrophy associated with splenomegaly on CT scan, unclear etiology. Gastroenterology on board. 7. History of Alzheimer's dementia. Aware. 8. Generalized weakness and deconditioning. Physical therapy on board. 9. Hypotension during the hospital course, probably due to a combination of sepsis, transient adrenal insufficiency and hypovolemic shock, resolved. 10. Fluid overload, probably due to hypoalbuminemia which initially was 1.6 and IV fluids. We will continue with same management. 11. Remote history of squamous cell carcinoma of the scalp and right renal cell carcinoma status post right partial nephrectomy, noted. PLAN: Overall, this patient seems to be more stable. She will need to complete the treatment with antibiotics and she will need to go to a rehab center. I had a large conversation with her and she agreed with that. This conversation was done not only by me, but also by 1 of the nurses, Nerissa Gio. At the beginning, this patient was refusing to go because she wanted to go home, but since she cannot get off the bed by herself or do basically anything by herself, she at the end decided to go to the rehab center. I hope she does not change her mind overnight. It looks like palliative care already evaluated this patient and talked to the family and the family agreed to send this patient to rehab as well. I appreciate Palliative Care and Mrs. Powers's help. cc: Boris Garsia MD
[2019-09-05] MEDS: LASIX PO SCH (21:58)
[2019-09-05] MEDS: CRESTOR PO SCH (21:58)
[2019-09-05] MEDS: ROCEPHIN 2 GM in NS 50 ML IV SCH (21:59)
[2019-09-05] MEDS: NORCO-7.5 PO PRN (22:11)
[2019-09-06] MEDS: NORCO-7.5 PO PRN (04:01)
[2019-09-06] MEDS: LOVENOX SUBQ SCH (04:01)
[2019-09-06] MEDS: PROTONIX IV SCH ×2 (06:55→06:56)
[2019-09-06 07:35] LABS: EOS# 0.03 X1000 (0.0-0.7); EOS% 0.7 % (0.0-10.0); HEMATOCRIT 30.2 % (37.0-47.0); HEMOGLOBIN 9.6 g/dL (12.0-16.0); IMM GRAN# 0.02 X1000 (0.0-0.04); IMM GRAN% 0.4 % (0.0-0.5); LYMPH# 0.44 X1000 (1.2-3.4); LYMPH% 9.6 % (20.5-51.1); MCH 27.6 PG (27-31); MCHC 31.8 g/dL (33-37); MCV 86.8 FL (81-99); MONO# 0.36 X1000 (0.11-0.59); MONO% 7.9 % (1.7-9.3); MPV 9.8 FL (7.4-10.4); NEUT# 3.71 X1000 (1.4-6.5); NEUT% 81.4 % (42.2-75.2); PLT 150 X1000 (130-400); RBC 3.48 XMIL (4.2-5.4); RDW 21.4 % (11.5-14.5); WBC 4.56 X1000 (4.8-10.8)
[2019-09-06 08:01] LABS: CALCIUM 7.7 mg/dL (8.8-10.2); POTASSIUM 3.2 mmol/L (3.5-5.1)
[2019-09-06] MEDS ORDERED: ROCEPHIN 2 GM in NS 50 ML IV SCH (09:00)
[2019-09-06] MEDS: SOLU-CORTEF IV SCH (09:54)
[2019-09-06] MEDS: MIRALAX PO SCH (09:54)
[2019-09-06] MEDS: VITAMIN D PO SCH (09:58)
[2019-09-06] MEDS: LASIX PO SCH (09:58)
[2019-09-06] MEDS: ZYPREXA PO SCH (09:58)
[2019-09-06] MEDS: WELLBUTRIN XL PO SCH (09:58)
[2019-09-06] MEDS: FOLIC ACID PO SCH (09:59)
[2019-09-06] MEDS: CULTURELLE PO SCH (09:59)
[2019-09-06] MEDS ORDERED: KLOR-CON PO ONE (09:59)
--- NOTE | 2019-09-06 10:58 | DISCHARGE SUMMARY ---
ADMISSION DATE: 08/25/2019 DISCHARGE DATE: 09/06/2019 PRIMARY CARE PHYSICIAN: LUIS Canchola. ADMISSION DIAGNOSES: 1. Altered mental status, multifactorial. 2. Generalized weakness and overall deconditioning. 3. Acute dehydration. 4. Acute kidney injury. 5. Dementia. DISCHARGE DIAGNOSES: 1. An Escherichia coli urinary tract infection with bacteremia. 2. Cholelithiasis with cholecystitis status post laparoscopic converted to open cholecystectomy, postoperative day #8. 3. Altered mental status on presentation, likely global encephalopathy due to infection in background of dementia, improved. 4. Portal vein thrombus of unclear etiology diagnosed per CT scan. 5. Severe protein calorie malnutrition. 6. Pancreatic atrophy associated with splenomegaly. 7. Generalized weakness and deconditioning. 8. Remote history of squamous cell carcinoma of the scalp and right renal cell carcinoma status post right partial nephrectomy. 9. History of Alzheimer disease. SUMMARY OF FINDINGS: This is a 69-year-old male who was brought to the emergency room due to worsening weakness, was moderately confused and no family was present at the time of arrival, and so we had to obtain most of her history from previous records. Had an elevated creatinine and was suspected to be possibly dehydrated. Was admitted to [facility], placed on IV fluids. We did a renal ultrasound on 07/27/2019 that showed left parapelvic cyst. We consulted Infectious Disease due to the patient having a gram-negative ruby bacteremia and a secondary UTI, placed on IV antibiotics. We did a CT of the abdomen and pelvis on 08/27/2019 that showed a probable cholecystitis, numerous small stones in the gallbladder, a severe enterocolitis in the distal small bowel and proximal colon. We did an abdomen ultrasound on 08/27/2019 that showed cholelithiasis. We consulted General Surgery, initially did the insertion of a central venous catheter with ultrasound guidance for her IV antibiotic use. We consulted Urology with no new orders noted. We consulted Oncology on 08/28/2019 due to his complete thrombus of the portal venous system. Hypercoagulable workup was initiated. The patient had an operative cholangiogram on 08/29/2019 that showed filling defects in the mid and distal common bile duct concerning for choledocholithiasis. On 08/29/2019, the patient had a laparoscopic converted to open cholecystectomy with operative cholangiogram. GI was consulted on 08/29/2019, who was watching her liver enzymes for the possibility of needing an ERCP. Her H H did drop to 7.7 and 24.2, and she received 3 units of packed red blood cells. Was placed on GI prophylaxis of Protonix 40 mg IV b.i.d., also placed on Culturelle and MiraLAX daily for her bowel regimen. She is improved and it is now felt that she can safely be discharged to rehab. She will need an additional 4 days of IV antibiotics to complete her 2 week antibiotic therapy per Infectious Disease. DISCHARGE MEDICATIONS: 1. Dulcolax 10 mg rectally daily p.r.n. 2. Bupropion 150 mg p.o. daily. 3. Cefdinir 300 mg p.o. b.i.d., #8, no refills. 4. Vitamin D3 5000 units p.o. daily. 5. Folic acid 1 mg p.o. daily. 6. [place] 7.5 one p.o. q.4 hours p.r.n. 7. Culturelle 1 p.o. daily. 8. Olanzapine 5 mg p.o. b.i.d. 9. MiraLAX 17 g p.o. daily. 10. Rosuvastatin 20 mg p.o. at bedtime. 11. Eliquis 10 mg p.o. q.12 hours. 12. Linzess 145 mg p.o. in the morning. 13. Protonix 40 mg p.o. daily. FOLLOWUP: She will need to follow up with Urology, GI, Infectious Disease, Surgery and Hematology, and her primary care physician once she has completed rehab stay and those appointments can be made at that time of discharge. TIME SPENT: This is a 35 minute discharge. Dictated by LUIS Monzon for Boris Garsia MD cc: LUIS Monzon MD Anna M. Dumas, CRNP
--- NOTE | 2019-09-06 11:02 | INFECTIOUS DISEASE PROGRESS NO ---
DATE: 09/06/2019 PRESENT ILLNESS: The patient has an E coli urinary tract infection with an associated bacteremia. She also is status post open cholecystectomy. MEDICATIONS: This is the 10th day of treatment with Rocephin and other antibiotics that the patient took prior to Rocephin. PHYSICAL EXAMINATION: Vital Signs: Temperature is 97.8 degrees, pulse 73, respirations 18, blood pressure 122/68. General: This is a chronically ill-appearing elderly female. She is in no acute distress. Head, eyes, ears, nose, throat: She can hear my spoken words and see near objects. She is able to talk in a coherent fashion. She has poor oral hygiene. I did not see any white patches in her mouth. Neck: No pain with movement of her neck. Lungs: Clear to auscultation. Cardiovascular: Heart rate is regular with a systolic murmur. Abdomen: Soft and nontender. The patient has incisions and none of them are erythematous or draining. She also had a drain on the right part of the abdomen, which has been removed and there is minimal drainage coming through the area. Neurologic: The patient is awake. She can move her extremities. She does not have a tremor. LAB AND X-RAY: There is no new radiographic study. CBC shows a white count of 4560, hemoglobin 9.6, and platelet count 150,000, creatinine is 1.0 GFR is 55. ASSESSMENT AND PLAN: Patient has Escherichia coli urinary tract infection and associated bacteremia. The patient is going to get her dose of Rocephin today and then she will be transferred to a rehab hospital and there she will be placed on Omnicef 300 mg p.o. every 12 hours for 4 more days to complete a 14 day treatment course. COMORBIDITIES: The patient is elderly. She has had a right nephrectomy. She also has dementia. cc: Dae Marcelino MD
[2019-09-06 11:58] VITALS: BP 139/62
[2019-09-06] MEDS ORDERED: OMNICEF PO SCH (21:00)
== END 2019-09-06 14:36 | DRG 853 ==
LOC: SUPCPDRO → ED 17:49 → SUATTDRO 22:21 → 2N 22:21 → 1N 08-26 12:39 → ICU 08-29 10:37 → 4N 09-02 17:44
PROVIDERS: ATTEND Internal Medicine

== ENCOUNTER 2019-12-04 15:29 | Inpatient (IN) ==
[2019-12-04] MEDS ORDERED: NS 1,000 ML IV ONE (16:15)
--- NOTE | 2019-12-04 16:34 | Diag Imaging Result Doc PS360 ---
EXAM: CHEST-2 VIEWS 12/04/2019 HISTORY: syncope TECHNIQUE: PA and lateral chest COMMENT: There is no evidence of acute cardiac or pulmonary disease. The endotracheal tube and internal jugular line which were present on 08/29/2019 are no longer present but otherwise are has been no significant change. IMPRESSION: No acute disease. Electronically signed by Kieran Greenwood 12/04/2019 4:32 PM
--- NOTE | 2019-12-04 16:46 | Diag Imaging Result Doc PS360 ---
EXAM: CT HEAD W/O CONTRAST 12/04/2019 HISTORY: syncope TECHNIQUE: This exam was performed using automated exposure control, adjustment of mA or kV according to patient size, and/or use of iterative reconstruction technique. COMMENT: There are calcifications in the vertebral and internal carotid arteries. There is mild generalized cerebral atrophy. There are patchy lucencies in the periventricular white matter in the frontal lobes bilaterally. There are some focal lucency in the external capsule on the left. These findings were also present on 02/15/2019. There is no evidence of mass effect bleed or abnormal extra-axial fluid collection. The calvarium is intact. The paranasal sinuses are clear. IMPRESSION: No evidence of acute intracranial disease. Chronic microvascular white matter changes. Electronically signed by Kieran Greenwood 12/04/2019 4:44 PM
--- NOTE | 2019-12-04 16:50 | Diag Imaging Result Doc PS360 ---
EXAM: CT ABDOMEN/PELVIS W/O CONTRAST 12/04/2019 HISTORY: lower abdominal pain TECHNIQUE: This exam was performed using automated exposure control, adjustment of mA or kV according to patient size, and/or use of iterative reconstruction technique. COMMENT: Compared to the previous examination of 08/27/2019 the atelectatic changes which were previously present in the lower lobes have largely resolved. There has been previous cholecystectomy. The biliary dilatation which was present on the previous study has resolved. The pancreas it is more homogeneous and somewhat smaller than on the previous examination particularly with regard to the head of the pancreas indicating resolution of the pre-existing pancreatitis. There are postsurgical changes in the right kidney which were present previously. There is no evidence of nephrolithiasis. There is stool throughout much of the colon. There is a fat-containing ventral hernia at the level of image 84. The appendix is unremarkable in appearance. There is diverticulosis in the descending colon without evidence of diverticulitis. There is formed stool throughout the rectosigmoid colon. The urinary bladder is not distended. There is no free fluid. The regional skeleton is stable in appearance. IMPRESSION: Constipation. Electronically signed by Kieran Greenwood 12/04/2019 4:48 PM
--- NOTE | 2019-12-04 17:15 | PROVIDER DOCUMENTATION ---
HPI-Syncope/Dizziness - General Chief Complaint: Syncope Stated Complaint: SYNCOPE/ABD PAIN Time Seen by Provider: 12/04/19 16:05 Source: patient, EMS Allergies/Adverse Reactions: Patient Allergies Allergy/AdvReac Type Severity Reaction Status Date / Time Penicillins Allergy RASH Verified 12/04/19 16:10 Home Medications: Home Medication List Medication Instructions Recorded Confirmed Last Taken Type Folic Acid 1 mg PO DAILY #0 tablet 09/03/14 08/25/19 07/13/18 Rx ROSUVAstatin [Crestor] 20 mg PO QPM 01/23/16 08/25/19 1 Day Ago History ~07/12/18 Linaclotide [Linzess] 145 mg PO QAM 10/16/18 08/25/19 Unknown History Cholecalciferol (Vitamin D3) 5,000 unit PO DAILY 08/25/19 08/25/19 Unknown History [Vitamin D3] Lactobacillus Rhamnosus GG 1 ea PO DAILY 08/25/19 08/25/19 Unknown History [Culturelle] Apixaban [Eliquis] 10 mg PO Q12H #110 tab 09/06/19 Unknown Rx Bisacodyl [Dulcolax] 10 mg NC DAILY PRN PRN supp 09/06/19 Unknown Rx Bupropion X.l. [Wellbutrin Xl] 150 mg PO DAILY #30 tab 09/06/19 Unknown Rx CefDINIR [Omnicef] 300 mg PO BID #8 cap 09/06/19 Unknown Rx Hydrocodone/APAP 7.5 mg/325 mg 1 ea PO Q4H PRN PRN #20 tab 09/06/19 Unknown Rx [[place]-7.5] Olanzapine [Zyprexa] 5 mg PO BID #60 tab 09/06/19 Unknown Rx Pantoprazole [Protonix] 40 mg PO DAILY@0700 #90 tab 09/06/19 Unknown Rx Polyethylene Glycol 3350 [Miralax] 17 gm PO DAILY powder, packet 09/06/19 Unknown Rx - History of Present Illness-Syncope/Dizzy Nature of Presenting Problem: Patient is a 69 yowf who presents via EMS following a syncopal episode that occurred while at her doctor's office fishing [employer]. Pt states she was sitting in a chair when she passed out and when she woke up she had abdominal pain that has improved since onset. Denies chest pain, SOB, n/v/d, or any other complaints. Pt is a poor historian. Recently Seen Here or By Another Healthcare Provider: No Review of Systems - Adult - REVIEW OF SYSTEMS - ADULT Constitutional: reports: no symptoms reported Eyes: reports: no symptoms reported Ears, Nose, Mouth & Throat: reports: no symptoms reported Cardiovascular: reports: see HPI, syncope Respiratory: reports: no symptoms reported Gastrointestinal: reports: see HPI Genitourinary: reports: no symptoms reported Musculoskeletal: reports: no symptoms reported Integumentary: reports: no symptoms reported Neurological: reports: see HPI, syncope Psychiatric: reports: no symptoms reported Endocrine: reports: no symptoms reported Hematologic/Lymphatic: reports: no symptoms reported Allergic/Immunologic: reports: no symptoms reported All Other Systems: Reviewed and Negative Past History - Adult - PAST MEDICAL HISTORY-ADULT Review of Records: reports: Nursing Assessment Review, Medications Reviewed, Social history reviewed & non-contributory. Major Childhood Illnesses: reports: denies history Cardiovascular: reports: HTN, hyperlipidemia Respiratory: reports: asthma, pneumonia Gastrointestinal: reports: GERD Obstetrical/Gynecological: reports: denies history Genitourinary: reports: denies history Musculoskeletal: reports: denies history Neurological: reports: CVA, Seizures/Epilepsy, other ( metabolic encephalopathy) Psychiatric: reports: depression, other (MR) Endocrine/Immune: reports: thyroid disorder Other Conditions: reports: other cancer (skin) - PRIOR SURGERIES/PROCEDURES Surgical/Procedure History: reports: hysterectomy - PRIOR HOSPITALIZATIONS Prior Hospitalizations: reports: for other non-related - IMMUNIZATION STATUS Childhood Immunizations: See Nurse Assessment Flu Vaccine: See Nurse Assessment - FAMILY HISTORY Family History: reviewed, not pertinent - SOCIAL HISTORY Smoking: non-smoker Physical Exam-General - PHYSICAL EXAM-ADULT Initial Vital Signs Reviewed: Yes - CONSTITUTIONAL General Appearance: alert, no apparent distress. negative: lethargic, slow to respond - EYES Eyes: PERRL/EOMI, pink conjunctivae - HEAD, EARS, NOSE, MOUTH & THROAT HENMT: normocephalic/atraumatic, other (dry mucous membranes) - NECK Neck: full range of motion, supple, normal inspection - RESPIRATORY Respiratory: chest non-tender, lungs clear, no pleuratic chest pain, no respiratory distress, no accessory muscle use - CARDIOVASCULAR Cardiovascular: regular rate, rhythm, no gallop, no murmur, tachycardia - GASTROINTESTINAL (ABDOMEN) Abdominal Exam: normal bowel sounds, soft, tenderness (mild diffuse). negative: distended, guarding, rigid, rebound - MUSCULOSKELETAL Back Exam: normal inspection Extremity: normal range of motion, normal inspection - SKIN Integumentary: normal color, warm/dry. negative: cyanosis, diaphoresis, jaundi ce, mottled, pallor - NEUROLOGIC Neurologic: grossly normal - PSYCHIATRIC Psych/Mental Status: normal mood/affect, normal thought content, normal thought process, oriented x 3 Progress - PLAN OF CARE/RESULTS Progress/Plan/Lab Results: Vital Signs - 8 hr 12/04/19 16:04 12/04/19 16:05 12/04/19 19:15 Temperature 97.9 F Pulse Rate 97 H 86 99 H Respiratory Rate 15 17 14 Blood Pressure 111/75 111/75 117/79 O2 Sat by Pulse Oximetry 97 97 94 L 12/04/19 20:45 12/04/19 20:46 Temperature Pulse Rate 119 H 98 H Respiratory Rate 17 12 Blood Pressure 103/72 O2 Sat by Pulse Oximetry 95 94 L Laboratory Results - last 24 hr 12/04/19 12/04/19 12/04/19 17:04 17:35 17:35 WBC 4.86 RBC 4.07 L Hgb 11.3 L Hct 35.3 L MCV 86.7 MCH 27.8 MCHC 32.0 L RDW Std Deviation 16.2 H Plt Count 143 MPV 9.6 Immature Gran % (Auto) 0.0 Neut % (Auto) 77.6 H Lymph % (Auto) 17.1 L [place] % (Auto) 4.5 Eos % (Auto) 0.6 Baso % (Auto) 0.2 Immature Gran # (Auto) 0.00 Neut # (Auto) 3.77 Lymph # (Auto) 0.83 L [place] # (Auto) 0.22 Eos # (Auto) 0.03 Baso # (Auto) 0.01 PT INR PTT (Actin FS) Sodium Potassium Chloride Carbon Dioxide Anion Gap BUN Creatinine Estimated GFR/1.73 m2 BUN/Creatinine Ratio Glucose POC Glucose 107 H Calculated Osmolality Calcium Magnesium Total Bilirubin AST ALT Alkaline Phosphatase Troponin T High Sens Total Protein Albumin Globulin Albumin/Globulin Ratio Amylase 95 Lipase 49 12/04/19 12/04/19 12/04/19 17:35 17:35 17:35 WBC RBC Hgb Hct MCV MCH MCHC RDW Std Deviation Plt Count MPV Immature Gran % (Auto) Neut % (Auto) Lymph % (Auto) [place] % (Auto) Eos % (Auto) Baso % (Auto) Immature Gran # (Auto) Neut # (Auto) Lymph # (Auto) [place] # (Auto) Eos # (Auto) Baso # (Auto) PT 17.5 H INR 1.41 PTT (Actin FS) 31.1 Sodium 143 Potassium 3.8 Chloride 107 Carbon Dioxide 21 L Anion Gap 15 BUN 43 H Creatinine 1.8 H Estimated GFR/1.73 m2 28 BUN/Creatinine Ratio 24 Glucose 141 H POC Glucose Calculated Osmolality 298 Calcium 9.3 Magnesium 1.9 Total Bilirubin 0.43 AST 25 ALT 12 Alkaline Phosphatase 92 Troponin T High Sens 85 H Total Protein 6.4 Albumin 3.5 Globulin 2.9 Albumin/Globulin Ratio 1.2 Amylase Lipase Orders Category Date Time Status Blood Glucose Finger Stick [FSBS/Accucheck Result] NOW Care 12/04/19 16:35 Active Cardiac Monitoring DIRECTED Care 12/04/19 16:15 Active Nursing- Obtain EKG ONCE Care 12/04/19 16:16 Active Orthostatic Vital Signs NOW Care 12/04/19 16:15 Active CHEST-2 VIEWS [RAD] Stat Exams 12/04/19 16:[address] ABDOMEN/PELVIS W/O CONTRAST [CT] Stat Exams 12/04/19 16:[address] HEAD W/O CONTRAST [CT] Stat Exams 12/04/19 16:15 Completed AMYLASE [CHEM] Stat Lab 12/04/19 17:35 Completed CBC WITH DIFF [HEME] Stat Lab 12/04/19 17:35 Completed COMPREHENSIVE METABOLIC PANEL [CHEM] Stat Lab 12/04/19 17:35 Completed LIPASE [CHEM] Stat Lab 12/04/19 17:35 Completed MAGNESIUM [CHEM] Stat Lab 12/04/19 17:35 Completed OCCULT BLOOD DIAG 1-[address] Stat Lab 12/04/19 20:24 Uncollected PROTIME WITH INR [COAG] Stat Lab 12/04/19 17:35 Completed PTT [COAG] Stat Lab 12/04/19 17:35 Completed TROPONIN T HIGH SENSITIVITY Stat Lab 12/04/19 17:35 Completed 0.9% Sodium Chloride Inj [Ns] 1,000 ml Med 12/04/19 16:15 Active IV 100 mls/hr EKG [EKG] Stat Ther 12/04/19 16:15 Ordered Transfer/Admit Order [TRANSFER] Routine Transfer 12/04/19 20:06 Ordered Result Diagrams: 12/04/19 17:35 12/04/19 17:35 - REASSESSMENT Reassessment #1 Time Reassessed: 19:18 Status: other (Pt in agreement with admission plan.) - XRAY 1 XRAY Study: Chest ([facility] - [address], [address], [place] [address] [facility] - [address] , [place] [address] Department of Imaging Patient: DIANA NGUYEN ANNADM Date: 12/04/19#: [id number] : 1950DM Status: PRE ERAcct#: [id number] Age/Sex: 69/FRoom/Bed: Loc: ED Ordering Physician: Fernando Yan Family Physician: Loli Barrios Reason for Procedure: syncope Signed EXAM: CHEST-2 VIEWS 12/04/2019 HISTORY: syncope TECHNIQUE: PA and lateral chest COMMENT: There is no evidence of acute cardiac or pulmonary disease. The endotracheal tube and internal jugular line which were present on 08/29/2019 are no longer present but otherwise are has been no significant change. IMPRESSION: No acute disease. Electronically signed by Kieran Greenwood 12/04/2019 4:32 PM 12/04/19 1632 Interpreting Physician: Kieran Greenwood MD Dictated Date/Time: 12/04/19 1631 cc: Fernando Yan; Loli Barrios) - CT/MRI 1 CT Study: Head ([facility] - [address], [address], [place] [address] [place] [address] Department of Imaging Patient: DIANA NGUYEN ANNADM Date: 12/04/19#: [id number] : 9ADM Status: PRE ERAt#: [id number] Age/Sex: 69/FRoom/Bed: Loc: ED Ordering Physician: Fernando Yan Family Physician: Loli Barrios Reason for Procedure: syncope Signed EXAM: CT HEAD W/O CONTRAST 12/04/2019 HISTORY: syncope TECHNIQUE: This exam was performed using automated exposure control, adjustment of mA or kV according to patient size, and/or use of iterative reconstruction technique. COMMENT: There are calcifications in the vertebral and internal carotid arteries. There is mild generalized cerebral atrophy. There are patchy lucencies in the periventricular white matter in the frontal lobes bilaterally. There are some focal lucency in the external capsule on the left. These findings were also present on 02/15/2019. There is no evidence of mass effect bleed or abnormal extra-axial fluid collection. The calvarium is intact. The paranasal sinuses are clear. IMPRESSION: No evidence of acute intracranial disease. Chronic microvascular white matter changes. Electronically signed by Kieran Greenwood 12/04/2019 4:44 PM 12/04/19 1644 Interpreting Physician: Kieran Greenwood MD Dictated Date/Time: 12/04/19 1642 cc: Fernando Yan; Loli Barrios) 2 CT Study: Abdomen, Pelvis ([facility] - [address], [address], [place] [address] [facility] - [facility] [place] [address] Department of Imaging Patient: DIANA NGUYEN ANNADM Date: 12/04/19#: [id number] : 9ADM Status: PRE ERAcct#: [id number] Age/Sex: 69/FRoom/Bed: Loc: ED Ordering Physician: Fernando Yan Family Physician: Loli Barrios Reason for Procedure: lower abdominal pain Signed EXAM: CT ABDOMEN/PELVIS W/O CONTRAST 12/04/2019 HISTORY: lower abdominal pain TECHNIQUE: This exam was performed using automated exposure control, adjustment of mA or kV according to patient size, and/or use of iterative reconstruction technique. COMMENT: Compared to the previous examination of 08/27/2019 the atelectatic changes which were previously present in the lower lobes have largely resolved. There has been previous cholecystectomy. The biliary dilatation which was present on the previous study has resolved. The pancreas it is more homogeneous and somewhat smaller than on the previous examination particularly with regard to the head of the pancreas indicating resolution of the pre-existing pancreatitis. There are postsurgical changes in the right kidney which were present previously. There is no evidence of nephrolithiasis. There is stool throughout much of the colon. There is a fat-containing ventral hernia at the level of image 84. The appendix is unremarkable in appearance. There is diverticulosis in the descending colon without evidence of diverticulitis. There is formed stool throughout the rectosigmoid colon. The urinary bladder is not distended. There is no free fluid. The regional skeleton is stable in appearance. IMPRESSION: Constipation. Electronically signed by Kieran Greenwood 12/04/2019 4:48 PM 12/04/19 1168 Interpreting Physician: Kieran Greenwood MD Dictated Date/Time: 12/04/19 5356 cc: Fernando Yan; Loli Barrios) - CONSULTS/PCP/HOSPITALIST Notification #1 *Consult/PCP/Hospitalist*: Dr. Hodges Time Discussed: 19:17 Reason/Comments: admission- syncope, TORO Consult Disposition: Will see in ED, Admit Departure - Departure Date of Disposition Decision: 12/04/19 Time of Disposition Decision: 19:17 DIAGNOSIS: TORO (acute kidney injury) Syncope Qualifiers: Syncope type: unspecified Qualified Code(s): R55 - Syncope and collapse Abdominal pain Qualifiers: Abdominal location: unspecified location Qualified Code(s): R10.9 - Unspecified abdominal pain Disposition: ADMITTED INPATIENT 09 Certified Medical Emergency: Emergent Condition: Stable Referrals and Follow-Ups: Loli Barrios CRNP [Primary Care Provider] - - Critical Care Note This patient required my direct & personal management of CC.: No Attestation - Physician/ LADAN Attestation Patient care was provided by Advanced Practice Provider:: Yes Advanced Practice Provider:: Fernando Yan Advanced Practice Provider documentation review:: The Mid-level provider documentation, treatment plan and medical decision making was reviewed by the physician who agrees with all treatment and medical decision making by the MLP. The physician spent face to face time with patient:: No Advanced Practice Provider documentation review:: Supervising physician onsite and consulted in the evaluation and care of this patient. The physician did not have a face to face encounter with the patient.
[2019-12-04 17:46] LABS: BASO# 0.01 X1000 (0.0-0.2); BASO% 0.2 % (0.0-0.8); EOS# 0.03 X1000 (0.0-0.7); EOS% 0.6 % (0.0-10.0); HEMATOCRIT 35.3 % (37.0-47.0); HEMOGLOBIN 11.3 g/dL (12.0-16.0); LYMPH# 0.83 X1000 (1.2-3.4); LYMPH% 17.1 % (20.5-51.1); MCH 27.8 PG (27-31); MCV 86.7 FL (81-99); MONO# 0.22 X1000 (0.11-0.59); MONO% 4.5 % (1.7-9.3); MPV 9.6 FL (7.4-10.4); NEUT# 3.77 X1000 (1.4-6.5); NEUT% 77.6 % (42.2-75.2); PLT 143 X1000 (130-400); RBC 4.07 XMIL (4.2-5.4); RDW 16.2 % (11.5-14.5); WBC 4.86 X1000 (4.8-10.8)
[2019-12-04 17:55] LABS: INR 1.41; PROTIME 17.5 Seconds (11.0-16.0)
[2019-12-04 17:56] LABS: PTT 31.1 Seconds (22.3-41.8)
[2019-12-04 18:26] LABS: AMYLASE 95 U/L (20-200); LIPASE 49 U/L (13-60)
[2019-12-04 18:31] LABS: ALB/GLOB RATIO 1.2; ALBUMIN 3.5 g/dL (3.5-5.0); CALCIUM 9.3 mg/dL (8.8-10.2); CREATININE 1.8 mg/dL (0.5-0.9); MAGNESIUM 1.9 mg/dL (1.5-2.7); POTASSIUM 3.8 mmol/L (3.5-5.1); TOTAL BILIRUBIN 0.43 mg/dL (0.20-1.00); TOTAL PROTEIN 6.4 g/dL (6.3-8.3)
--- NOTE | 2019-12-04 20:58 | HISTORY AND PHYSICAL ---
REASON FOR ADMISSION: Syncope. HISTORY OF PRESENT ILLNESS: Ms. Chiara Medrano is a 69-year-old woman who came in today after passing out at her doctor's office whom she went to see for routine. This was a routine office visit. She has a history of dementia, hypertension, dyslipidemia, CVA and probable coronary artery disease. She came in. She was at her doctor's office. She says she was sitting and suddenly blacked out. When she came to, she had office staff around her. She denies any fecal or urinary incontinence. She denies any antecedent cardiorespiratory complaints. The patient denies any focal weakness, numbness or tingling previously or subsequent to the event. No headache. No visual symptoms. As a mater of fact, she has no acute complaints whatsoever. The patient denies any diarrhea, vomiting, bleeding from any orifice, or any change in her home medications. REVIEW OF SYSTEMS: Twelve system review was done. Positive findings as per HPI. ALLERGIES: To penicillin. HOME MEDICATIONS: Have not been reconciled as of this time. PAST MEDICAL HISTORY: See above. SURGICAL HISTORY: She had right nephrectomy, multiple skin cancers, hysterectomy. SOCIAL HISTORY: Said she was staying with her sister, but as of today, her house is condemned and the city is demolishing it. FAMILY HISTORY: Notable for heart disease in her dad. LABORATORY WORK: White count 4000, H H 11 and 35, platelets 143,000. BUN is 43, creatinine 1.8, glucose 141. Troponin is 83. PT 17, INR 1.4. IMAGING: CT abdomen: Resolution of previous biliary dilatation along with resolution of pre- existing pancreatitis. The patient is somewhat constipated. Chest film: No acute disease noted. CT head: Chronic microvascular white matter changes. EKG: The EKG was ordered, but for some reason I am not able to find 1 done. It is pending. PHYSICAL EXAMINATION: VITAL SIGNS: Blood pressure 111/75, heart rate 86, respirations 17, temperature is 97.9 degrees. He is 97% on room air. GENERAL: Chiara Medrano is a 69-year-old woman who is alert and oriented to person, place, and time. HEENT: Head is normocephalic and atraumatic. She has extensive alopecia with seborrheic keratotic lesions on her scalp. EYES: LEIGH, EOMI. He is anicteric and not pale. ENT exam is shows severe xerostomia with no exudates or erythema. No signs of cyanosis. NECK: Supple. No JVD or carotid bruit. No thyromegaly. She has decreased skin turgor. CHEST: Clear to auscultation. Good air entry in both lung cristobal. CARDIOVASCULAR: First and second heart sounds heard. No gallops, murmurs, rubs. Rhythm is regular. ABDOMEN: Full, soft with tenderness in the suprapubic area. No rebound or guarding. No CVA tenderness. Bowel sounds are hypoactive. RECTAL: Deferred at this time. EXTREMITIES: Patient has decreased distal pulse volumes, symmetrical, regular. No edema, clubbing or peripheral cyanosis. NEUROLOGIC: No gross focal deficits. SKIN: Intact. No breakdown, or erythema. Exam is grossly normal. ASSESSMENT: 1. Syncope, etiology yet to be determined. Could be due to intravascular volume depletion. Probably from dehydration. 2. Acute kidney injury, probably secondary to intravascular volume depletion. 3. Dementia. 4. Constipation. PLAN: The patient will be admitted. EKG is still pending at this time, but in the interim, the patient will be placed on telemetry for dysrhythmia. Aggressive hydration of patient with fluids will be done. The patient's home medications need to be reconciled and closely evaluated as to the etiology of her acute kidney injury and syncope. Avoid any antihypertensives for now. I know this patient's PT/INR was elevated and probably these medications may be started for history of portal vein thrombosis. Hemoccults will be ordered to ensure the patient is not bleeding, although her hemoglobin and hematocrit does not suggest this. Our social research assistant will need to be consulted. The patient says she has nowhere to go to at discharge. cc: LUIS Baumann MD
[2019-12-04] MEDS: NS 1,000 ML IV SCH (23:30)
[2019-12-05] MEDS ORDERED: TYLENOL PO PRN (00:18)
[2019-12-05] MEDS ORDERED: ZOFRAN IV PRN (00:18)
--- NOTE | 2019-12-05 07:23 | EKG Report ---
Test Performed on : 12/04/2019 6:39:16 PM Test Reason : SYNCOPE Blood Pressure : / mmHG Vent. Rate : 105 BPM Atrial Rate : 107 BPM P-R Int : 238 ms QRS Dur : 090 ms QT Int : 326 ms P-R-T Axes : 049 021 027 degrees QTc Int : 430 ms Undetermined rhythm Otherwise normal ECG When compared with ECG of 31-AUG-2019 05:38, Current undetermined rhythm precludes rhythm comparison, needs review Unconfirmed Result
[2019-12-05] MEDS: NS 1,000 ML IV SCH ×4 (07:57→17:52)
[2019-12-05 08:00] LABS: BASO# 0.01 X1000 (0.0-0.2); BASO% 0.3 % (0.0-0.8); EOS# 0.05 X1000 (0.0-0.7); EOS% 1.7 % (0.0-10.0); HEMOGLOBIN 10.9 g/dL (12.0-16.0); LYMPH# 1.08 X1000 (1.2-3.4); LYMPH% 36.9 % (20.5-51.1); MCH 28.4 PG (27-31); MCHC 32.1 g/dL (33-37); MCV 88.5 FL (81-99); MONO# 0.27 X1000 (0.11-0.59); MONO% 9.2 % (1.7-9.3); MPV 9.7 FL (7.4-10.4); NEUT# 1.52 X1000 (1.4-6.5); NEUT% 51.9 % (42.2-75.2); PLT 118 X1000 (130-400); RBC 3.84 XMIL (4.2-5.4); RDW 16.4 % (11.5-14.5); WBC 2.93 X1000 (4.8-10.8)
[2019-12-05 08:54] LABS: CALCIUM 8.8 mg/dL (8.8-10.2); CREATININE 1.6 mg/dL (0.5-0.9); MAGNESIUM 1.9 mg/dL (1.5-2.7); POTASSIUM 3.2 mmol/L (3.5-5.1)
[2019-12-05] MEDS ORDERED: KLOR-CON PO ONE (09:58)
[2019-12-05] MEDS ORDERED: NORCO-7.5 PO PRN (12:22)
[2019-12-05 13:06] LABS: URINE SOURCE CLEAN CATCH
[2019-12-05 13:08] LABS: BILIRUBIN URINE NEGATIVE (NEGATIVE); BLOOD URINE TRACE (NEGATIVE); COLOR YELLOW; GLUCOSE URINE NEGATIVE (NEGATIVE); KETONE URINE NEGATIVE (NEGATIVE); LEUKOCYTES URINE LARGE (NEGATIVE); NITRITE URINE NEGATIVE (NEGATIVE); PROTEIN URINE TRACE mg/dL (NEGATIVE); SP GRAVITY URINE 1.013; TURBIDITY URINE HAZY (CLEAR); UR EPITHELIAL CELLS <10 /HPF (<10); URINE BACTERIA 4+ /HPF; URINE RBC <10 /HPF (<10); URINE WBC TNTC /HPF (<10); UROBILINOGEN URINE NORMAL (NORMAL)
[2019-12-05 13:56] LABS: UR CREAT RANDOM 52.7 mg/dL (11-20); UR PROT RANDOM 28.3 mg/dL
[2019-12-05] MEDS: LEVAQUIN 500 MG/D5W 500 MG/100 ML IVPB IV SCH (14:18)
--- NOTE | 2019-12-05 14:56 | PROGRESS NOTE ---
DATE: 12/05/2019 SUBJECTIVE: The patient is sitting up in bed. She states that she feels okay. No acute events noted overnight. OBJECTIVE: Vital Signs: Temperature 98.3 degrees blood pressure 107/57, heart rate 75, respirations 16, O2 saturations 100% on room air. General: This is a chronically ill-appearing elderly female, lying in bed in no acute distress. Heart: S1, S2 normal. Regular rate and rhythm. Lungs: Clear to auscultation bilaterally. Abdomen: Positive bowel sounds. Soft, nontender, nondistended. Extremities: No edema, no cyanosis. Neurologic: The patient is alert and oriented x3. LABS: 1. White blood cell count 2.9, hemoglobin 10, hematocrit 34, platelets 118. 2. Sodium 143, potassium 3.2, chloride 110, CO2 20. 3. BUN 37, creatinine 1.6, glucose 83. 4. Urinalysis with 4+ bacteria, large WBCs. ASSESSMENT AND PLAN: 1. Syncope. Likely secondary to the underlying dehydration. Continue with intravenous fluids. 2. Urinary tract infection. We will follow up on the culture results. We will start the patient on Levaquin. 3. Acute kidney injury. Slightly improved, likely secondary to dehydration. We will continue with intravenous fluids. 4. History of cerebrovascular accident. Aware. 5. Constipation. We will start the patient on laxative therapy. 6. Atrial fibrillation. The patient is rate controlled. Continue on Eliquis. 7. Chronic constipation. Continue on Linzess. 8. Thrombocytopenia. We will monitor closely. 9. Hypokalemia. We will replace the patient's potassium. cc: Celine Jacobson MD
--- NOTE | 2019-12-05 16:28 | ECHO REPORT ---
ORDER DATE: 12/05/2019 INTERPRETING PHYSICIAN: Dr. Mickey Ng. ECHOCARDIOGRAPHIC MEASUREMENTS: 1. Interventricular septum: 1.1 cm. 2. Left ventricular posterior wall: 0.8 cm. 3. Diastolic diameter: 4.5 cm. 4. Left atrium: 3.8 cm. 5. Aorta: 3.9 cm. SUMMARY OF THE 2-DIMENSIONAL IMAGIN. Aortic valve leaflets were trileaflet. 2. Pulmonic valve was normal. 3. Mitral valve was normal. 4. Tricuspid valve was normal. 5. There is mild sclerosis of the aortic valves. 6. There is mild left atrial enlargement. 7. Mild mitral regurgitation. 8. Mild tricuspid regurgitation. 9. Peak velocity across the tricuspid valve was 2.5 meters per second. 10. Pulmonary artery systolic pressure of 35 mmHg. 11. Peak velocity across the aortic valve less than 2 meters per second. 12. There is no aortic stenosis. 13. There is mild aortic sclerosis associated with mild aortic regurgitation. 14. Normal left ventricular cavity size. 15. Estimated ejection fraction of 65 to 70%. 16. There is mild asymmetric left ventricular hypertrophy. 17. There is no pericardial effusion or obvious intracardiac mass or thrombus seen. cc: MD Vasyl Seals MD
[2019-12-05] MEDS: ELIQUIS PO SCH (17:38)
[2019-12-05] MEDS: CRESTOR PO SCH (22:16)
[2019-12-05] MEDS: ZYPREXA PO SCH (22:16)
[2019-12-06] MEDS: ELIQUIS PO SCH ×2 (06:35→18:51)
[2019-12-06] MEDS: NS 1,000 ML IV SCH ×3 (06:35→18:51)
[2019-12-06] MEDS: PROTONIX PO SCH (06:36)
[2019-12-06 07:48] LABS: HEMATOCRIT 30.7 % (37.0-47.0); MCH 29.2 PG (27-31); MCHC 32.6 g/dL (33-37); MCV 89.5 FL (81-99); MPV 9.6 FL (7.4-10.4); RBC 3.43 XMIL (4.2-5.4); RDW 16.2 % (11.5-14.5); WBC 2.47 X1000 (4.8-10.8)
[2019-12-06 08:09] LABS: ALBUMIN 2.8 g/dL (3.5-5.0); CALCIUM 8.9 mg/dL (8.8-10.2); CREATININE 1.4 mg/dL (0.5-0.9); PHOSPHORUS 3.2 mg/dL (2.7-4.5); POTASSIUM 3.8 mmol/L (3.5-5.1)
[2019-12-06] MEDS: FOLIC ACID PO SCH (08:34)
[2019-12-06] MEDS: LINZESS PO SCH (08:34)
[2019-12-06] MEDS: WELLBUTRIN XL PO SCH (08:34)
[2019-12-06] MEDS: ZYPREXA PO SCH ×2 (08:34→20:57)
[2019-12-06] MEDS: MIRALAX PO SCH (08:35)
[2019-12-06] MEDS: LEVAQUIN 500 MG/D5W 500 MG/100 ML IVPB IV SCH (12:39)
--- NOTE | 2019-12-06 20:50 | PROGRESS NOTE ---
DATE: 12/06/2019 SUBJECTIVE: The patient is resting comfortably in bed. She has no complaints at this time. OBJECTIVE: Vital Signs: Temperature 98 degrees, blood pressure 154/54, heart rate 81, respirations 22, O2 saturations 100% on room air. General: This is a chronically ill-appearing elderly female sitting up in bed in no acute distress. Heart: S1, S2 normal. Regular rate and rhythm. Lungs: Equal air entry bilaterally. No wheezing. No rales. No rhonchi. Abdomen: Positive bowel sounds. Soft, nontender, nondistended. Extremities: No edema. No cyanosis. Neurologic: The patient is awake and alert. LABORATORIES: White blood cell count 2, hemoglobin 10, hematocrit 30, platelets 94,000, sodium 145, potassium 3.8, chloride 115, CO2 21, BUN 32, creatinine 1.4, glucose 94. ASSESSMENT AND PLAN: 1. Syncope, likely secondary to dehydration. 2. Urinary tract infection. The urine culture is growing gram-negative rods. Continue on Levaquin. 3. Thrombocytopenia. The platelet count is trending downward. We will continue to monitor closely. The patient has not received any heparin recently. 4. Atrial fibrillation. Continue on Eliquis. 5. History of cerebrovascular accident. Aware. 6. Acute kidney injury. Slowly improving, continue with IV fluid hydration. 7. We will consult Physical Therapy. cc: Celine Jacobson MD
[2019-12-06] MEDS: CRESTOR PO SCH (20:56)
[2019-12-07] MEDS: NS 1,000 ML IV SCH (06:25)
[2019-12-07] MEDS: PROTONIX PO SCH (06:26)
[2019-12-07] MEDS: ELIQUIS PO SCH ×2 (06:26→19:19)
[2019-12-07 08:12] LABS: BASO# 0.01 X1000 (0.0-0.2); BASO% 0.5 % (0.0-0.8); EOS# 0.06 X1000 (0.0-0.7); EOS% 2.8 % (0.0-10.0); HEMATOCRIT 31.5 % (37.0-47.0); LYMPH# 0.71 X1000 (1.2-3.4); LYMPH% 33.6 % (20.5-51.1); MCH 28.2 PG (27-31); MCHC 31.7 g/dL (33-37); MONO# 0.17 X1000 (0.11-0.59); MONO% 8.1 % (1.7-9.3); MPV 9.6 FL (7.4-10.4); NEUT# 1.16 X1000 (1.4-6.5); PLT 103 X1000 (130-400); RBC 3.54 XMIL (4.2-5.4); RDW 15.7 % (11.5-14.5); WBC 2.11 X1000 (4.8-10.8)
[2019-12-07 08:49] LABS: CALCIUM 8.8 mg/dL (8.8-10.2); CREATININE 1.2 mg/dL (0.5-0.9); POTASSIUM 3.6 mmol/L (3.5-5.1)
[2019-12-07] MEDS: FOLIC ACID PO SCH (09:13)
[2019-12-07] MEDS: ZYPREXA PO SCH ×2 (09:13→21:09)
[2019-12-07] MEDS: WELLBUTRIN XL PO SCH (09:13)
[2019-12-07] MEDS: LINZESS PO SCH (09:14)
[2019-12-07] MEDS: MIRALAX PO SCH (09:14)
--- NOTE | 2019-12-07 18:40 | PROGRESS NOTE ---
DATE: 12/07/2019 SUBJECTIVE: The patient is resting comfortably in bed. She has no complaints. OBJECTIVE: Vital Signs: Temperature 97.8 degrees, blood pressure 124/71, heart rate 73, respirations 20, O2 saturation 97% on room air. General: This is an elderly female lying in bed in no acute distress. Heart: S1, S2 normal. Regular rate and rhythm. Lungs: Clear to auscultation bilaterally. Abdomen: Positive bowel sounds. Soft, nontender, nondistended. Extremities: No edema, no cyanosis. Neurologic: The patient is awake and alert. LABS: White blood cell count 2.1, hemoglobin 10, hematocrit 31, platelets 103,000. Sodium 141, potassium 3.6, chloride 112, CO2 19, BUN 24, creatinine 1.2, glucose 87. ASSESSMENT AND PLAN: 1. Syncope secondary to dehydration. Resolved. 2. Urinary tract infection secondary to Escherichia coli. Continue on Levaquin. 3. Pancytopenia. We will monitor the patient's counts closely. 4. Atrial fibrillation. Rate controlled. Continue on Eliquis. 5. History of cerebrovascular accident. Aware. 6. Acute kidney injury. Slowly improving. Continue on IV fluids. 7. Situational depression. Continue on Wellbutrin XL. 8. Deep vein thrombosis prophylaxis. The patient is on Eliquis. cc: Celine Jacobson MD
[2019-12-07] MEDS: CRESTOR PO SCH (21:09)
[2019-12-08] MEDS: NS 1,000 ML IV SCH (00:29)
[2019-12-08] MEDS: LEVAQUIN 500 MG/D5W 500 MG/100 ML IVPB IV SCH (03:18)
[2019-12-08] MEDS: PROTONIX PO SCH (06:27)
[2019-12-08 07:33] LABS: BASO# 0.01 X1000 (0.0-0.2); BASO% 0.4 % (0.0-0.8); EOS# 0.06 X1000 (0.0-0.7); EOS% 2.7 % (0.0-10.0); HEMATOCRIT 30.2 % (37.0-47.0); HEMOGLOBIN 9.8 g/dL (12.0-16.0); LYMPH# 0.64 X1000 (1.2-3.4); LYMPH% 28.7 % (20.5-51.1); MCH 28.6 PG (27-31); MCHC 32.5 g/dL (33-37); MONO# 0.23 X1000 (0.11-0.59); MONO% 10.3 % (1.7-9.3); MPV 9.4 FL (7.4-10.4); NEUT# 1.29 X1000 (1.4-6.5); NEUT% 57.9 % (42.2-75.2); PLT 99 X1000 (130-400); RBC 3.43 XMIL (4.2-5.4); RDW 15.7 % (11.5-14.5); WBC 2.23 X1000 (4.8-10.8)
[2019-12-08 08:13] LABS: CREATININE 1.2 mg/dL (0.5-0.9); POTASSIUM 3.9 mmol/L (3.5-5.1)
[2019-12-08] MEDS: ELIQUIS PO SCH ×2 (08:48→20:19)
[2019-12-08] MEDS: LINZESS PO SCH (08:48)
[2019-12-08] MEDS: ZYPREXA PO SCH ×2 (08:49→20:19)
[2019-12-08] MEDS: WELLBUTRIN XL PO SCH (08:49)
[2019-12-08] MEDS: MIRALAX PO SCH (08:50)
[2019-12-08] MEDS: FOLIC ACID PO SCH (08:51)
[2019-12-08] MEDS: CRESTOR PO SCH (20:19)
--- NOTE | 2019-12-09 04:49 | PROGRESS NOTE ---
DATE: 12/08/2019 SUBJECTIVE: The patient is resting comfortably. She has no complaints. OBJECTIVE: Vital Signs: Temperature 97.9 degrees, blood pressure 125/62, heart rate 66, respirations 20, O2 saturations 100% on room air. General: This is an elderly female lying in bed in no acute distress. Heart: S1, S2 normal. Regular rate and rhythm. Lungs: Clear to auscultation bilaterally. No wheezing. No rales. No rhonchi. Abdomen: Positive bowel sounds. Soft, nontender, nondistended. Extremities: No edema. No cyanosis. Neurologic: The patient is alert and oriented x3. LABS: White blood cell count 2.2, hemoglobin 9.8, hematocrit 30, platelets 99,000, sodium 145, BUN 25, creatinine 1.2, glucose 89. ASSESSMENT AND PLAN: 1. Syncope secondary to dehydration. Resolved. 2. Urinary tract infection secondary to Escherichia coli. Continue on Levaquin; today is day 3 of therapy. 3. Atrial fibrillation. The patient is rate controlled. Continue on Eliquis. 4. History of cerebrovascular accident. Aware. 5. Acute kidney injury. Improved. 6. Situational depression. Continue on Wellbutrin XL. 7. Chronic constipation. Continue on Linzess. 8. Pancytopenia. Aware. DISPOSITION: The patient should be stable for discharge tomorrow. cc: Celine Jacobson MD
[2019-12-09] MEDS: LEVAQUIN 500 MG/D5W 500 MG/100 ML IVPB IV SCH (05:53)
[2019-12-09] MEDS: PROTONIX PO SCH (05:53)
[2019-12-09 07:57] LABS: CALCIUM 9.2 mg/dL (8.8-10.2); CREATININE 1.4 mg/dL (0.5-0.9); POTASSIUM 3.9 mmol/L (3.5-5.1)
[2019-12-09] MEDS: ZYPREXA PO SCH (10:16)
[2019-12-09] MEDS: FOLIC ACID PO SCH (10:17)
[2019-12-09] MEDS: ELIQUIS PO SCH (10:17)
[2019-12-09] MEDS: LINZESS PO SCH (10:17)
[2019-12-09] MEDS: WELLBUTRIN XL PO SCH (10:17)
[2019-12-09] MEDS: MIRALAX PO SCH (10:17)
[2019-12-09 11:31] VITALS: BP 134/68
--- NOTE | 2019-12-10 12:01 | DISCHARGE SUMMARY ---
ADMISSION DATE: 12/04/2019 DISCHARGE DATE: 12/09/2019 FINAL DISCHARGE DIAGNOSES: 1. Metabolic encephalopathy. 2. Urinary tract infection secondary to Escherichia coli. 3. Dehydration. 4. Acute kidney injury. 5. Atrial fibrillation on chronic anticoagulation 6. Syncope secondary to dehydration. 7. Situational depression. 8. Chronic constipation. 9. Pancytopenia. 10. History of cerebrovascular accident. HOSPITAL COURSE: Ms. Medrano is a 69-year-old female with a history of multiple medical problems who initially presented to the ER after having a syncopal episode at home. The patient reports that she passed out, but did not remember much after that. On admission, the patient was noted to be in renal failure and was noted to also have a urinary tract infection. The patient was admitted to the hospitalist service. IV fluids were started and antibiotic therapy was initiated. Ultimately, the urine culture grew out Escherichia coli that was pansensitive with the initiation of fluids. The patient's renal function improved. During the hospital stay the patient's JOANN inhibitor and diuretic therapy were held. The patient also worked with physical therapy and did well. The patient continued to improve clinically and was ultimately cleared for discharge home on 12/09/2019. DISCHARGE MEDICATIONS: 1. Levaquin 500 mg p.o. daily x3 days. 2. Folic acid 1 mg oral daily. 3. Crestor 20 mg oral at bedtime. 4. Linzess 145 mg oral at in the morning. 5. Dulcolax 10 mg per rectum daily p.r.n. 6. MiraLAX 17 g oral daily. 7. [place] 7.5/325 one tab oral every 4 hours p.r.n. for pain. 8. Wellbutrin XL 150 mg oral daily. 9. Protonix 40 mg p.o. daily. 10. Lisinopril 10 mg oral daily. 11. Eliquis 5 mg oral every 12 hours. 12. Zyprexa 2.5 mg oral day twice a day. 13. Lasix 40 mg p.o. daily p.r.n. DISCHARGE DIET: Low-sodium, low-cholesterol diet. ACTIVITY: As tolerated. FOLLOWUP INSTRUCTIONS: The patient will need to follow up with LUIS Canchola on 12/16/2019 at 9 a.m. cc: MD MONIK Norris
== END 2019-12-09 13:33 | disposition home or self-care (01) | DRG 682 ==
LOC: SUPCPDRO → ED 15:29 → 3N 22:21 → SUATTDRO 22:21
PROVIDERS: ATTEND Internal Medicine